=== PATIENT | female | born 1980 | race African-American/Black ===

== ENCOUNTER 2020-05-24 23:00 | Inpatient (IN) | payer OTHER ==
[~2020-05-24] VITALS: Ht 170.2 cm; Wt 61.8 kg
[2020-05-24] MEDS ORDERED: MORPHINE SULFATE 2 MG/ML VIAL. IV PRN (23:30)
[2020-05-24] MEDS ORDERED: ACETAMINOPHEN 325 MG TABLET. PO PRN (23:30)
[2020-05-24] MEDS ORDERED: 0.9 % SODIUM CHLORIDE 10 ML DISP.SYRIN. IV PRN (23:30)
[2020-05-24] MEDS ORDERED: ONDANSETRON PF 4 MG/2 ML VIAL. IV PRN (23:30)
[2020-05-24] MEDS ORDERED: ALPR0.5T PO (23:36)
[2020-05-24] MEDS ORDERED: cloNIDine HCL 0.1 MG TABLET PO PRN (23:45)
[2020-05-24] MEDS: IV NORMAL SALINE 1000ML BAG 1,000 ML IV SCH (23:45)
[2020-05-24] MEDS ORDERED: ALPRAZolam 0.5 MG TABLET PO PRN (23:45)
[2020-05-24] MEDS ORDERED: NALOXONE 0.4 MG/ML VIAL. IV PRN (23:45)
[2020-05-25] VITALS (8 sets, daily range): BP systolic 115–150; BP diastolic 41–86
[2020-05-25] MEDS: NICOTINE 21MG PATCH. TD SCH ×2 (00:35→09:00)
[2020-05-25] MEDS: POTASSIUM CHLORIDE 10MEQ 100 ML IV SCH ×2 (00:35→01:44)
[2020-05-25] MEDS: HYDROmorphone 2 MG/ML VIAL IVP PRN ×2 (00:36→06:12)
--- NOTE | 2020-05-25 00:43 | NUR ---
Pt normally takes 0.5 of Xanax at night and tonight, she broke the pill in half and gave back to this RN. Advised pt that I would have to discard rest and she was fine with it. Will continue to monitor. MPRN
[2020-05-25] MEDS: PIPERACILLIN/TAZOBACTAM 3.375 GM in IV NORMAL SALINE 50ML 50 ML IV SCH ×4 (01:43→18:43)
[2020-05-25 03:23] LABS: BILIRUBIN,URINE NEGATIVE (NEG); CLARITY,URINE CLEAR; COLOR,URINE YELLOW; NITRITE,URINE NEGATIVE (NEG); PROTEIN,URINE NEGATIVE (NEG-TRACE); UROBILINOGEN,URINE 0.2 mg/dL (0.2 mg/dL)
[2020-05-25 03:25] LABS: U PREG PATIENT NEGATIVE (NEG)
[2020-05-25 03:28] LABS: RBC,URINE 0 /HPF (0-2)
[2020-05-25 03:29] LABS: BACTERIA,URINE FEW /HPF (0-FEW); SQUAMOUS EPITHELIAL CELL,UR FEW /LPF; WBC,URINE OCC /HPF (0-4)
[2020-05-25 03:30] LABS: BARBITURATES NEG (NEG); BENZODIAZEPINES NEG (NEG); CANNABINOIDS POS (NEG); COCAINE NEG (NEG); METHADONE NEG (NEG); OPIATES POS (NEG); PHENCYCLIDINE NEG (NEG)
[2020-05-25 03:35] LABS: AMPHETAMINE/METHAMPHETAMINE NEG (NEG)
[2020-05-25] MEDS: KETOROLAC 30 MG/ML VIAL. IVP PRN ×2 (03:36→19:19)
[2020-05-25 04:43] LABS: BASO % 0 % (0-3); EOS # 0.1 x10^3/uL (0.0-0.7); EOS % 2 % (0-3); HEMATOCRIT 23.2 % (36.0-47.0); HEMOGLOBIN 7.5 g/dL (12.0-15.5); LYMPH # 1.5 x10^3/uL (1.0-4.8); LYMPH % 25 % (24-48); MEAN CORPUSCULAR HEMOGLOBIN 27 pg (25-35); MEAN CORPUSCULAR HGB CONC 32 g/dL (31-37); MEAN CORPUSCULAR VOLUME 86 fL (79-100); MONO # 0.5 x10^3/uL (0.0-1.1); MONO % 8 % (0-9); NEUT # 3.7 x10^3/uL (1.8-7.7); NEUT % 65 % (31-73); PLATELET COUNT 373 x10^3/uL (140-400); RED BLOOD COUNT 2.72 x10^6/uL (3.50-5.40); RED CELL DISTRIBUTION WIDTH 20.5 % (11.5-14.5); WHITE BLOOD COUNT 5.8 x10^3/uL (4.0-11.0)
[2020-05-25 05:07] LABS: CALCIUM 7.8 mg/dL (8.5-10.1); CREATININE 0.8 mg/dL (0.6-1.0); GFR 97.7; MAGNESIUM 1.4 mg/dL (1.8-2.4); POTASSIUM 3.1 mmol/L (3.5-5.1); TOTAL BILIRUBIN 0.9 mg/dL (0.2-1.0)
--- NOTE | 2020-05-25 08:10 | PDOC2 ---
CONSULT Date of Consult Date of Consult DATE: 05/25/20 TIME: 08:07 Reason for Consult Reason for Consult: Acute appendicitis Referring Physician Referring Physician: Cooper Identification/Chief Complaint Chief Complaint Right lower quadrant abdominal pain Source Source: Chart review, Patient History of Present Illness Reason for Visit: 39-year-old female whose had right lower quadrant abdominal pain for approximately 18 hours. She denies any nausea vomiting fevers or chills. CT scan done at [place] emergency department shows dilated appendix with periappendiceal inflammation Past Medical History Cardiovascular: No pertinent hx Pulmonary: No pertinent hx GI: Other (Pancreatitis) Heme/Onc: No pertinent hx Hepatobiliary: No pertinent hx Psych: Anxiety Rheumatologic: No pertinent hx Infectious disease: No pertinent hx ENT: No pertinent hx Renal/: No pertinent hx Endocrine: No pertinent hx Dermatology: No pertinent hx Past Surgical History Past Surgical History: (Laparoscopy), Other Family History Family History: No Significant Current Medications Current Medications Current Medications Sodium Chloride (Normal Saline Flush) 3 ml QSHIFT PRN IV AFTER MEDS AND BLOOD DRAWS; Start 05/24/20 at 23:30 Sodium Chloride 1,000 ml @ 100 mls/hr Q10H IV ; Start 05/24/20 at 23:45 Ondansetron HCl (Zofran) 4 mg PRN Q4HRS PRN IV NAUSEA/VOMITING; Start 05/24/20 at 23:30 Acetaminophen (Tylenol) 650 mg PRN Q4HRS PRN PO TEMP OVER 100.4F OR MILD PAIN; Start 05/24/20 at 23:30 Piperacillin Sod/ Tazobactam Sod 3.375 gm/Sodium Chloride 50 ml @ 100 mls/hr Q6HRS IV Last administered on 05/25/20at 06:10; Start 05/25/20 at 00:00 Ketorolac Tromethamine (Toradol 30mg Vial) 30 mg PRN Q6HRS PRN IVP PAIN Last administered on 05/25/20at 03:36; Start 05/24/20 at 23:30; Stop 05/29/20 at 23:29 Morphine Sulfate (Morphine Sulfate) 2 mg PRN Q2HR PRN IV PAIN; Start 05/24/20 at 23:30; Stop 05/24/20 at 23:37; Status DC Potassium Chloride/Water 100 ml @ 100 mls/hr Q1H IV Last administered on 05/25/20at 01:44; Start 05/25/20 at 00:00; Stop 05/25/20 at 01:59; Status DC Multivitamins 10 ml/Thiamine HCl 100 mg/Folic Acid 1 mg/Sodium Chloride 1,011.2 ml @ 100 mls/ hr DAILY IV ; Start 05/25/20 at 09:00; Stop 05/29/20 at 19:07 Lorazepam (Ativan) 1 mg PRN Q1HR PRN PO For CIWA 8-14; Start 05/24/20 at 23:45 Lorazepam (Ativan Inj) 0.5 mg PRN Q1HR PRN IV For CIWA 8-14; Start 05/24/20 at 23:45 Clonidine HCl (Catapres) 0.1 mg PRN Q1HR PRN PO SBP > 180 or DBP > 100, MRX3; Start 05/24/20 at 23:45 Hydromorphone HCl (Dilaudid) 0.4 mg PRN Q4HRS PRN IVP PAIN Last administered on 05/25/20at 06:12; Start 05/24/20 at 23:45 Alprazolam (Xanax) 0.5 mg PRN BID PRN PO ANXIETY / AGITATION Last administered on 05/25/20at 00:36; Start 05/24/20 at 23:45 Naloxone HCl (Narcan) 0.4 mg PRN Q2MIN PRN IV SEE COMMENTS; Start 05/24/20 at 23:45 Nicotine (Nicoderm Cq 21mg) 1 patch DAILY TD Last administered on 05/25/20at 00:35; Start 05/25/20 at 00:00 Active Scripts Active Reported Xanax (Alprazolam) 0.5 Mg Tablet 0.5 Mg PO PRN Q6HRS PRN Allergies Allergies: Coded Allergies: morphine (Verified Allergy, Intermediate, Anaphylaxis, 05/24/20) Body and throat swelling ROS Gastrointestinal: Yes Abdominal Pain Physical Exam General: Alert, Oriented X3, Cooperative, mild distress HEENT: Atraumatic Lungs: Clear to auscultation, Normal air movement Heart: Regular rate, No murmurs Abdomen: Normal bowel sounds, Soft, Other (Tender palpation right lower quadrant) Extremities: No edema Skin: No significant lesion Neuro: Normal speech Psych/Mental Status: Mental status NL Vitals VITALS Vital Signs Date Time Temp Pulse Resp B/P (MAP) Pulse Ox O2 Delivery O2 Flow Rate FiO2 05/25/20 07:00 97.7 72 18 115/67 (83) 99 Room Air 97.7 Labs Labs Laboratory Tests Test 05/25/20 01:09 05/25/20 02:10 05/25/20 03:35 SARS-CoV-2 Antigen (Rapid) Negative (NEGATIVE) Urine Collection Type Unknown Urine Color Yellow Urine Clarity Clear Urine pH 6.0 (<5.0-8.0) Urine Specific Jackman >=1.030 (1.000-1.030) Urine Protein Negative mg/dL (NEG-TRACE) Urine Glucose (UA) Negative mg/dL (NEG) Urine Ketones (Stick) Negative mg/dL (NEG) Urine Blood Negative (NEG) Urine Nitrite Negative (NEG) Urine Bilirubin Negative (NEG) Urine Urobilinogen Dipstick 0.2 mg/dL (0.2 mg/dL) Urine Leukocyte Esterase Negative (NEG) Urine RBC 0 /HPF (0-2) Urine WBC Occ /HPF (0-4) Urine Squamous Epithelial Cells Few /LPF Urine Bacteria Few /HPF (0-FEW) Urine Mucus Slight /LPF Urine Test Negative (NEG) Urine Opiates Screen Pos (NEG) Urine Methadone Screen Neg (NEG) Urine Barbiturates Neg (NEG) Urine Phencyclidine Screen Neg (NEG) Urine Amphetamine/Methamphetamine Neg (NEG) Urine Benzodiazepines Screen Neg (NEG) Urine Cocaine Screen Neg (NEG) Urine Cannabinoids Screen Pos (NEG) Urine Ethyl Alcohol Neg (NEG) White Blood Count 5.8 x10^3/uL (4.0-11.0) Red Blood Count 2.72 x10^6/uL (3.50-5.40) Hemoglobin 7.5 g/dL (12.0-15.5) Hematocrit 23.2 % (36.0-47.0) Mean Corpuscular Volume 86 fL (79-100) Mean Corpuscular Hemoglobin 27 pg (25-35) Mean Corpuscular Hemoglobin Concent 32 g/dL (31-37) Red Cell Distribution Width 20.5 % (11.5-14.5) Platelet Count 373 x10^3/uL (140-400) Neutrophils (%) (Auto) 65 % (31-73) Lymphocytes (%) (Auto) 25 % (24-48) Monocytes (%) (Auto) 8 % (0-9) Eosinophils (%) (Auto) 2 % (0-3) Basophils (%) (Auto) 0 % (0-3) Neutrophils # (Auto) 3.7 x10^3/uL (1.8-7.7) Lymphocytes # (Auto) 1.5 x10^3/uL (1.0-4.8) Monocytes # (Auto) 0.5 x10^3/uL (0.0-1.1) Eosinophils # (Auto) 0.1 x10^3/uL (0.0-0.7) Basophils # (Auto) 0.0 x10^3/uL (0.0-0.2) Sodium Level 138 mmol/L (136-145) Potassium Level 3.1 mmol/L (3.5-5.1) Chloride Level 105 mmol/L (98-107) Carbon Dioxide Level 21 mmol/L (21-32) Anion Gap 12 (6-14) Blood Urea Nitrogen 5 mg/dL (7-20) Creatinine 0.8 mg/dL (0.6-1.0) Estimated GFR (Cockcroft-Gault) 97.7 BUN/Creatinine Ratio 6 (6-20) Glucose Level 86 mg/dL (70-99) Calcium Level 7.8 mg/dL (8.5-10.1) Magnesium Level 1.4 mg/dL (1.8-2.4) Iron Level 15 ug/dL (50-170) Total Iron Binding Capacity 339 ug/dL (250-450) Iron Saturation 4 % (15-34) Total Bilirubin 0.9 mg/dL (0.2-1.0) Aspartate Amino Transf (AST/SGOT) 21 U/L (15-37) Alanine Aminotransferase (ALT/SGPT) 36 U/L (14-59) Alkaline Phosphatase 50 U/L (46-116) Total Protein 6.0 g/dL (6.4-8.2) Albumin 3.0 g/dL (3.4-5.0) Albumin/Globulin Ratio 1.0 (1.0-1.7) Laboratory Tests Test 05/25/20 01:09 05/25/20 02:10 05/25/20 03:35 SARS-CoV-2 Antigen (Rapid) Negative (NEGATIVE) Urine Collection Type Unknown Urine Color Yellow Urine Clarity Clear Urine pH 6.0 (<5.0-8.0) Urine Specific Jackman >=1.030 (1.000-1.030) Urine Protein Negative mg/dL (NEG-TRACE) Urine Glucose (UA) Negative mg/dL (NEG) Urine Ketones (Stick) Negative mg/dL (NEG) Urine Blood Negative (NEG) Urine Nitrite Negative (NEG) Urine Bilirubin Negative (NEG) Urine Urobilinogen Dipstick 0.2 mg/dL (0.2 mg/dL) Urine Leukocyte Esterase Negative (NEG) Urine RBC 0 /HPF (0-2) Urine WBC Occ /HPF (0-4) Urine Squamous Epithelial Cells Few /LPF Urine Bacteria Few /HPF (0-FEW) Urine Mucus Slight /LPF Urine Test Negative (NEG) Urine Opiates Screen Pos (NEG) Urine Methadone Screen Neg (NEG) Urine Barbiturates Neg (NEG) Urine Phencyclidine Screen Neg (NEG) Urine Amphetamine/Methamphetamine Neg (NEG) Urine Benzodiazepines Screen Neg (NEG) Urine Cocaine Screen Neg (NEG) Urine Cannabinoids Screen Pos (NEG) Urine Ethyl Alcohol Neg (NEG) White Blood Count 5.8 x10^3/uL (4.0-11.0) Red Blood Count 2.72 x10^6/uL (3.50-5.40) Hemoglobin 7.5 g/dL (12.0-15.5) Hematocrit 23.2 % (36.0-47.0) Mean Corpuscular Volume 86 fL (79-100) Mean Corpuscular Hemoglobin 27 pg (25-35) Mean Corpuscular Hemoglobin Concent 32 g/dL (31-37) Red Cell Distribution Width 20.5 % (11.5-14.5) Platelet Count 373 x10^3/uL (140-400) Neutrophils (%) (Auto) 65 % (31-73) Lymphocytes (%) (Auto) 25 % (24-48) Monocytes (%) (Auto) 8 % (0-9) Eosinophils (%) (Auto) 2 % (0-3) Basophils (%) (Auto) 0 % (0-3) Neutrophils # (Auto) 3.7 x10^3/uL (1.8-7.7) Lymphocytes # (Auto) 1.5 x10^3/uL (1.0-4.8) Monocytes # (Auto) 0.5 x10^3/uL (0.0-1.1) Eosinophils # (Auto) 0.1 x10^3/uL (0.0-0.7) Basophils # (Auto) 0.0 x10^3/uL (0.0-0.2) Sodium Level 138 mmol/L (136-145) Potassium Level 3.1 mmol/L (3.5-5.1) Chloride Level 105 mmol/L (98-107) Carbon Dioxide Level 21 mmol/L (21-32) Anion Gap 12 (6-14) Blood Urea Nitrogen 5 mg/dL (7-20) Creatinine 0.8 mg/dL (0.6-1.0) Estimated GFR (Cockcroft-Gault) 97.7 BUN/Creatinine Ratio 6 (6-20) Glucose Level 86 mg/dL (70-99) Calcium Level 7.8 mg/dL (8.5-10.1) Magnesium Level 1.4 mg/dL (1.8-2.4) Iron Level 15 ug/dL (50-170) Total Iron Binding Capacity 339 ug/dL (250-450) Iron Saturation 4 % (15-34) Total Bilirubin 0.9 mg/dL (0.2-1.0) Aspartate Amino Transf (AST/SGOT) 21 U/L (15-37) Alanine Aminotransferase (ALT/SGPT) 36 U/L (14-59) Alkaline Phosphatase 50 U/L (46-116) Total Protein 6.0 g/dL (6.4-8.2) Albumin 3.0 g/dL (3.4-5.0) Albumin/Globulin Ratio 1.0 (1.0-1.7) Assessment/Plan Assessment/Plan Acute appendicitis plan laparoscopic appendectomy RICHARDSON MCKEON MD May 25, 2020 08:09
[2020-05-25] MEDS ORDERED: IV RINGERS,LACTATED 1000ML 1,000 ML IV SCH (08:24)
[2020-05-25] MEDS ORDERED: PROCHLORPERAZINE 10 MG/2 ML VIAL. IV PRN (08:30)
[2020-05-25] MEDS ORDERED: LIDOCAINE 1% PF 2 ML VIAL. ID PRN (08:30)
[2020-05-25] MEDS ORDERED: MORPHINE SULFATE 2 MG/ML VIAL. IV PRN (08:30)
[2020-05-25] MEDS ORDERED: HYDROmorphone 2 MG/ML VIAL IV PRN (08:30)
[2020-05-25] MEDS ORDERED: fentaNYL PF VIAL 100 MCG/2 ML VIAL IV PRN (08:30)
[2020-05-25] MEDS: IV NORMAL SALINE 1000ML BAG 1,000 ML IV SCH ×2 (09:45→15:04)
--- NOTE | 2020-05-25 10:23 | NUR ---
SW following. Discussed with RN, pt from home with family. Pt having surgery today. RN advised pt UDS postive for opioids and cannabis. SW awaiting confirmation of whether physician wants PAT referral.
[2020-05-25] MEDS ORDERED: PROPOFOL 10 MG/ML (20ML) VIAL. IV ONE (10:49)
[2020-05-25] MEDS ORDERED: LIDOCAINE 2% PF 5 ML VIAL. ONE (10:49)
[2020-05-25] MEDS ORDERED: MIDAZOLAM HCL/PF 2 MG/2 ML VIAL. ONE (10:49)
[2020-05-25] MEDS ORDERED: DEXAMETHASONE SOD PHOS 4 MG/ML VIAL ONE ×2 (10:49→11:52)
[2020-05-25] MEDS ORDERED: SUCCINYLCHOLINE 200 MG/10 ML VIAL. ONE (10:49)
[2020-05-25] MEDS ORDERED: fentaNYL PF VIAL 100 MCG/2 ML VIAL ONE ×2 (10:49→12:18)
[2020-05-25] MEDS ORDERED: FAMOTIDINE 20 MG/2 ML VIAL ONE (10:49)
[2020-05-25] MEDS ORDERED: ONDANSETRON PF 4 MG/2 ML VIAL. ONE (10:49)
[2020-05-25] MEDS ORDERED: ROCURONIUM 50 MG/5 ML VIAL. ONE (10:49)
[2020-05-25] MEDS ORDERED: KETOROLAC 30 MG/ML VIAL. ONE (10:52)
--- NOTE | 2020-05-25 11:05 | NUR ---
Patient off floor for surgery. Will continue to monitor.
[2020-05-25] MEDS ORDERED: BUPIVACAINE-EPI 0.5%-1:200000 MPF 30 ML VIAL. ONE (11:56)
[2020-05-25] MEDS ORDERED: GLYCOPYRROLATE 1 MG/5 ML VIAL. ONE (12:19)
[2020-05-25] MEDS ORDERED: NEOSTIGMINE METHYLSULFATE 5 MG/5 ML SYRINGE. ONE (12:19)
[2020-05-25] MEDS ORDERED: SEVOFLURANE 61 TO 120 MINUTES. IH ONE (12:29)
--- NOTE | 2020-05-25 12:29 | PDOC4 ---
Operative Note Operative Note Preoperative Diagnosis: Acute Appendicitis Postoperative Diagnosis: Same Procedure: Laparoscopic appendectomy Surgeon: Zaire Tv Host: RAQUEL Wilkerson Anesthesia: Gen. EBL: 10 mL Specimen: Appendix to pathology Drains: None Complications: None Indication: The patient is a 39-year-old female who reported to the emergency department with abdominal pain. The evaluation is consistent with acute appendicitis. The patient was offered surgical treatment with a laparoscopic appendectomy. The risks of surgery were discussed which include bleeding, infection, visceral injury, pain, anesthetic risk, potential need for additional surgery or procedure. The patient understands and would like to proceed. Description: The patient was taken to the operating room and placed supine on the operating table. Gen. anesthesia was performed. The abdomen was prepped with ChloraPrep and draped in a standard surgical manner. A supraumbilical incision was made through which a veress needle was inserted and a pneumoperitoneum was created. A visualized 5 mm trocar was inserted and the laparoscope was introduced. In the left lower quadrant a 5 mm trocar was inserted. In the suprapubic region a 12 mm trocar was inserted. The appendix was identified and appeared inflamed consistent with acute appendicitis. There was no clear victor manuel dence of perforation or periappendiceal abscess. The mesoappendix was bluntly from the appendix. The mesoappendix was controlled using several clips and it was divided. The appendix was then amputated off the cecum using an Endo VIRY 45 stapling device. The appendix was then placed in an endoscopic bag and extracted at the suprapubic incision site. The fascia there was closed with 0 Vicryl and infiltrated with half percent Marcaine with epinephrine. The RLQ was visualized and the staple line appeared well intact and hemostasis was good. No other abnormalities were identified grossly. The remaining ports were removed and the pneumoperitoneum was relieved. The skin at all incision sites was closed with 4-0 Monocryl. Steri-Strips and dressings were applied. The patient tolerated the procedure well and was sent to the recovery room in stable condition. At the end of the case all counts were correct. GUILLE TORREZ MD May 25, 2020 12:29
[2020-05-25] MEDS ORDERED: oxyCODONE/APAP 5/325 1 TAB TABLET PO PRN (12:30)
[2020-05-25] MEDS: fentaNYL PF VIAL 100 MCG/2 ML VIAL IV PRN ×2 (13:12→13:57)
[2020-05-25] MEDS: MULTIVIT INFUSN,ADULT 4,VIT K 10 ML, THIAMINE INJ 100 MG, FOLIC ACID INJ 1 MG in IV NOR... IV SCH (14:10)
--- NOTE | 2020-05-25 14:40 | PDOC1 ---
History and Physical Date of Admission Date of Admission 05/25/2020 Identification/Chief Complaint Chief Complaint My stomach hurts Source Source: Chart review, Patient History of Present Illness History of Present Illness Patient is a 39-year-old female with no significant past medical history who was in her usual state of health until approximately 2 days prior to her admission when she started complaining of abdominal pain which was vague and not very localized. The patient described the discomfort as a sharp sensation 3-5 intensity out of 10. No radiation to the back no urinary symptoms no nausea vomiting diarrhea reported. The patient denies any sick contacts no travels outside this area. The patient denied any fever chills no diaphoresis, she did not have any dietary transgressions prior to the event. The patient unfortunately developed quite severe symptoms approximately a day prior to her admission or visit to the emergency department and the pain got progressively worse to a 10 out of 10 intensity associated with nausea. The patient decided to visit her local emergency department at [place] where she was diagnosed by imaging studies with appendicitis and transferred to our institution for further evaluation and treatment. Patient at the time of my visit is in no apparent distress the patient denies any abdominal discomfort no fever chills no urinary symptoms no other complaints. Laboratory data has been discussed with the patient and inquired about excessive bleeding given her degree of anemia. She also has evidence of iron deficiency on her laboratory data. Reassurance has been provided and the plan of care was explained in detail no concerns were voiced during my encounter Past Medical History Cardiovascular: No pertinent hx Pulmonary: No pertinent hx GI: Other (Pancreatitis) Heme/Onc: No pertinent hx Hepatobiliary: No pertinent hx Psych: Anxiety Rheumatologic: No pertinent hx Infectious disease: No pertinent hx ENT: No pertinent hx Renal/: No pertinent hx Endocrine: No pertinent hx Dermatology: No pertinent hx Past Surgical History Past Surgical History: (Laparoscopy), Other Family History Family History: No Significant Current Medications Current Medications Current Medications Medications (Trade) Dose Ordered Sig/Roger Start Time Stop Time Status Last Admin Dose Admin Acetaminophen (Tylenol) 650 mg PRN Q4HRS PRN 05/24/20 23:30 Alprazolam (Xanax) 0.5 mg PRN BID PRN 05/24/20 23:45 05/25/20 00:36 0.5 MG Bupivacaine HCl/ Epinephrine Bitart (Sensorcain-Epi 0.5%-1:[id number] Mpf) 30 ml STK-MED ONCE 05/25/20 11:56 05/25/20 11:57 DC 05/25/20 12:18 10 ML Clonidine HCl (Catapres) 0.1 mg PRN Q1HR PRN 05/24/20 23:45 Dexamethasone Sodium Phosphate (Decadron) 4 mg STK-MED ONCE 05/25/20 11:52 05/25/20 11:52 DC Famotidine (Pepcid Vial) 20 mg STK-MED ONCE 05/25/20 10:49 05/25/20 10:50 DC Fentanyl Citrate (Fentanyl 2ml Vial) 100 mcg STK-MED ONCE 05/25/20 12:18 05/25/20 12:18 DC Glycopyrrolate (Robinul) 1 mg STK-MED ONCE 05/25/20 12:19 05/25/20 12:19 DC Hydromorphone HCl (Dilaudid) 0.5 mg PRN Q10MIN PRN 05/25/20 08:30 05/25/20 20:00 Ketorolac Tromethamine (Toradol 30mg Vial) 30 mg STK-MED ONCE 05/25/20 10:52 05/25/20 10:53 DC Lidocaine HCl (Lidocaine Pf 2% Vial) 5 ml STK-MED ONCE 05/25/20 10:49 05/25/20 10:49 DC Lidocaine HCl (Xylocaine-Mpf 1% 2ml Vial) 2 ml PRN 1X PRN 05/25/20 08:30 05/25/20 20:00 Lorazepam (Ativan Inj) 0.5 mg PRN Q1HR PRN 05/24/20 23:45 05/25/20 09:27 0.5 MG Lorazepam (Ativan) 1 mg PRN Q1HR PRN 05/24/20 23:45 Midazolam HCl (Versed) 2 mg STK-MED ONCE 05/25/20 10:49 05/25/20 10:49 DC Morphine Sulfate (Morphine Sulfate) 1 mg PRN Q10MIN PRN 05/25/20 08:30 05/25/20 20:00 Multivitamins 10 ml/Thiamine HCl 100 mg/Folic Acid 1 mg/Sodium Chloride 1,011.2 ml @ 100 mls/ hr DAILY 05/25/20 09:00 05/29/20 19:07 Naloxone HCl (Narcan) 0.4 mg PRN Q2MIN PRN 05/24/20 23:45 Neostigmine [place] (Neostigmine Methylsulfate) 5 mg STK-MED ONCE 05/25/20 12:19 05/25/20 12:19 DC Nicotine (Nicoderm Cq 21mg) 1 patch DAILY 05/25/20 00:00 05/25/20 00:35 1 PATCH Ondansetron HCl (Zofran) 4 mg STK-MED ONCE 05/25/20 10:49 05/25/20 10:49 DC Oxycodone/ Acetaminophen (Percocet 5/325) 2 tab PRN Q4HRS PRN 05/25/20 12:45 Piperacillin Sod/ Tazobactam Sod 3.375 gm/Sodium Chloride 50 ml @ 100 mls/hr Q6HRS 05/25/20 00:00 05/25/20 11:53 100 MLS/HR Potassium Chloride/Water 100 ml @ 100 mls/hr Q1H 05/25/20 00:00 05/25/20 01:59 DC 05/25/20 01:44 100 MLS/HR Prochlorperazine Edisylate (Compazine) 5 mg PACU PRN PRN 05/25/20 08:30 05/25/20 20:00 Propofol (Diprivan) 200 mg STK-MED ONCE 05/25/20 10:49 05/25/20 10:49 DC Ringer's Solution 1,000 ml @ 30 mls/hr Q24H 05/25/20 08:24 05/25/20 20:23 05/25/20 11:27 30 MLS/HR Rocuronium [place] (Zemuron) 50 mg STK-MED ONCE 05/25/20 10:49 05/25/20 10:50 DC Sevoflurane (Ultane) 60 ml STK-MED ONCE 05/25/20 12:29 05/25/20 12:30 DC Sodium Chloride 1,000 ml @ 100 mls/hr Q10H 05/24/20 23:45 Sodium Chloride (Normal Saline Flush) 3 ml QSHIFT PRN 05/24/20 23:30 Succinylcholine Chloride (Anectine) 200 mg STK-MED ONCE 05/25/20 10:49 05/25/20 10:50 DC Allergies Allergies Allergies Coded Allergies Type Severity Reaction Last Updated Verified morphine Allergy Intermediate Anaphylaxis 05/24/20 Yes ROS Review of System CONSTITUTIONAL: No fever or chills EYES: No recent changes SKIN: No rash or itching CARDIOVASCULAR: No chest pain, syncope, palpitations, or edema RESPIRATORY: No SOB or cough GASTROINTESTINAL: No nausea, vomiting or abdominal pain NEUROLOGICAL: No headaches or weakness ENDOCRINE: No cold or heat intolerance GENITOURINARY: No urgency or frequency of urination MUSCULOSKELETAL: No back pain or joint pain LYMPHATICS: No enlarged lymph nodes PSYCHIATRIC: No anxiety or depression Physical Exam Physical Exam GEN.: No apparent distress. Alert and oriented. HEENT: Head is normocephalic, atraumatic NECK: Supple. LUNGS: Clear to auscultation. HEART: RRR, S1, S2 present. Peripheral pulses intact ABDOMEN: Soft, nontender. Positive bowel sounds. EXTREMITIES: Without any cyanosis. NEUROLOGIC: Normal speech, normal tone PSYCHIATRIC: Normal affect, normal mood. SKIN: No ulcerations Vitals Vitals Vital Signs Date Time Temp Pulse Resp B/P (MAP) Pulse Ox O2 Delivery O2 Flow Rate FiO2 05/25/20 13:57 16 98 Room Air 05/25/20 13:30 67 115/70 05/25/20 13:16 8 05/25/20 12:44 97.2 97.2 Labs Labs Laboratory Tests Test 05/25/20 01:09 05/25/20 02:10 05/25/20 03:35 SARS-CoV-2 Antigen (Rapid) Negative (NEGATIVE) Urine Collection Type Unknown Urine Color Yellow Urine Clarity Clear Urine pH 6.0 (<5.0-8.0) Urine Specific [place] >=1.030 (1.000-1.030) Urine Protein Negative mg/dL (NEG-TRACE) Urine Glucose (UA) Negative mg/dL (NEG) Urine Ketones (Stick) Negative mg/dL (NEG) Urine Blood Negative (NEG) Urine Nitrite Negative (NEG) Urine Bilirubin Negative (NEG) Urine Urobilinogen Dipstick 0.2 mg/dL (0.2 mg/dL) Urine Leukocyte Esterase Negative (NEG) Urine RBC 0 /HPF (0-2) Urine WBC Occ /HPF (0-4) Urine Squamous Epithelial Cells Few /LPF Urine Bacteria Few /HPF (0-FEW) Urine Mucus Slight /LPF Urine Test Negative (NEG) Urine Opiates Screen Pos (NEG) Urine Methadone Screen Neg (NEG) Urine Barbiturates Neg (NEG) Urine Phencyclidine Screen Neg (NEG) Urine Amphetamine/Methamphetamine Neg (NEG) Urine Benzodiazepines Screen Neg (NEG) Urine Cocaine Screen Neg (NEG) Urine Cannabinoids Screen Pos (NEG) Urine Ethyl Alcohol Neg (NEG) White Blood Count 5.8 x10^3/uL (4.0-11.0) Red Blood Count 2.72 x10^6/uL (3.50-5.40) Hemoglobin 7.5 g/dL (12.0-15.5) Hematocrit 23.2 % (36.0-47.0) Mean Corpuscular Volume 86 fL (79-100) Mean Corpuscular Hemoglobin 27 pg (25-35) Mean Corpuscular Hemoglobin Concent 32 g/dL (31-37) Red Cell Distribution Width 20.5 % (11.5-14.5) Platelet Count 373 x10^3/uL (140-400) Neutrophils (%) (Auto) 65 % (31-73) Lymphocytes (%) (Auto) 25 % (24-48) Monocytes (%) (Auto) 8 % (0-9) Eosinophils (%) (Auto) 2 % (0-3) Basophils (%) (Auto) 0 % (0-3) Neutrophils # (Auto) 3.7 x10^3/uL (1.8-7.7) Lymphocytes # (Auto) 1.5 x10^3/uL (1.0-4.8) Monocytes # (Auto) 0.5 x10^3/uL (0.0-1.1) Eosinophils # (Auto) 0.1 x10^3/uL (0.0-0.7) Basophils # (Auto) 0.0 x10^3/uL (0.0-0.2) Sodium Level 138 mmol/L (136-145) Potassium Level 3.1 mmol/L (3.5-5.1) Chloride Level 105 mmol/L (98-107) Carbon Dioxide Level 21 mmol/L (21-32) Anion Gap 12 (6-14) Blood Urea Nitrogen 5 mg/dL (7-20) Creatinine 0.8 mg/dL (0.6-1.0) Estimated GFR (Cockcroft-Gault) 97.7 BUN/Creatinine Ratio 6 (6-20) Glucose Level 86 mg/dL (70-99) Calcium Level 7.8 mg/dL (8.5-10.1) Magnesium Level 1.4 mg/dL (1.8-2.4) Iron Level 15 ug/dL (50-170) Total Iron Binding Capacity 339 ug/dL (250-450) Iron Saturation 4 % (15-34) Total Bilirubin 0.9 mg/dL (0.2-1.0) Aspartate Amino Transf (AST/SGOT) 21 U/L (15-37) Alanine Aminotransferase (ALT/SGPT) 36 U/L (14-59) Alkaline Phosphatase 50 U/L (46-116) Total Protein 6.0 g/dL (6.4-8.2) Albumin 3.0 g/dL (3.4-5.0) Albumin/Globulin Ratio 1.0 (1.0-1.7) Vitamin B12 Level 367 pg/mL (247-911) Laboratory Tests Test 05/25/20 01:09 05/25/20 02:10 05/25/20 03:35 SARS-CoV-2 Antigen (Rapid) Negative (NEGATIVE) Urine Collection Type Unknown Urine Color Yellow Urine Clarity Clear Urine pH 6.0 (<5.0-8.0) Urine Specific [place] >=1.030 (1.000-1.030) Urine Protein Negative mg/dL (NEG-TRACE) Urine Glucose (UA) Negative mg/dL (NEG) Urine Ketones (Stick) Negative mg/dL (NEG) Urine Blood Negative (NEG) Urine Nitrite Negative (NEG) Urine Bilirubin Negative (NEG) Urine Urobilinogen Dipstick 0.2 mg/dL (0.2 mg/dL) Urine Leukocyte Esterase Negative (NEG) Urine RBC 0 /HPF (0-2) Urine WBC Occ /HPF (0-4) Urine Squamous Epithelial Cells Few /LPF Urine Bacteria Few /HPF (0-FEW) Urine Mucus Slight /LPF Urine Test Negative (NEG) Urine Opiates Screen Pos (NEG) Urine Methadone Screen Neg (NEG) Urine Barbiturates Neg (NEG) Urine Phencyclidine Screen Neg (NEG) Urine Amphetamine/Methamphetamine Neg (NEG) Urine Benzodiazepines Screen Neg (NEG) Urine Cocaine Screen Neg (NEG) Urine Cannabinoids Screen Pos (NEG) Urine Ethyl Alcohol Neg (NEG) White Blood Count 5.8 x10^3/uL (4.0-11.0) Red Blood Count 2.72 x10^6/uL (3.50-5.40) Hemoglobin 7.5 g/dL (12.0-15.5) Hematocrit 23.2 % (36.0-47.0) Mean Corpuscular Volume 86 fL (79-100) Mean Corpuscular Hemoglobin 27 pg (25-35) Mean Corpuscular Hemoglobin Concent 32 g/dL (31-37) Red Cell Distribution Width 20.5 % (11.5-14.5) Platelet Count 373 x10^3/uL (140-400) Neutrophils (%) (Auto) 65 % (31-73) Lymphocytes (%) (Auto) 25 % (24-48) Monocytes (%) (Auto) 8 % (0-9) Eosinophils (%) (Auto) 2 % (0-3) Basophils (%) (Auto) 0 % (0-3) Neutrophils # (Auto) 3.7 x10^3/uL (1.8-7.7) Lymphocytes # (Auto) 1.5 x10^3/uL (1.0-4.8) Monocytes # (Auto) 0.5 x10^3/uL (0.0-1.1) Eosinophils # (Auto) 0.1 x10^3/uL (0.0-0.7) Basophils # (Auto) 0.0 x10^3/uL (0.0-0.2) Sodium Level 138 mmol/L (136-145) Potassium Level 3.1 mmol/L (3.5-5.1) Chloride Level 105 mmol/L (98-107) Carbon Dioxide Level 21 mmol/L (21-32) Anion Gap 12 (6-14) Blood Urea Nitrogen 5 mg/dL (7-20) Creatinine 0.8 mg/dL (0.6-1.0) Estimated GFR (Cockcroft-Gault) 97.7 BUN/Creatinine Ratio 6 (6-20) Glucose Level 86 mg/dL (70-99) Calcium Level 7.8 mg/dL (8.5-10.1) Magnesium Level 1.4 mg/dL (1.8-2.4) Iron Level 15 ug/dL (50-170) Total Iron Binding Capacity 339 ug/dL (250-450) Iron Saturation 4 % (15-34) Total Bilirubin 0.9 mg/dL (0.2-1.0) Aspartate Amino Transf (AST/SGOT) 21 U/L (15-37) Alanine Aminotransferase (ALT/SGPT) 36 U/L (14-59) Alkaline Phosphatase 50 U/L (46-116) Total Protein 6.0 g/dL (6.4-8.2) Albumin 3.0 g/dL (3.4-5.0) Albumin/Globulin Ratio 1.0 (1.0-1.7) Vitamin B12 Level 367 pg/mL (247-911) VTE Prophylaxis Ordered VTE Prophylaxis Devices: No VTE Pharmacological Prophylaxi: Yes Assessment/Plan Assessment/Plan Acute appendicitis Iron deficiency anemia Etiology undetermined determined at the present time for the anemia since there is no history of excessive bleeding Marijuana use Plan Admit patient for surgical evaluation Patient scheduled for OR later in the day Pain management Incentive spirometry Further recommendations based on the clinical course Reassess in the a.m. SCD and teds for DVT prophylaxis Justicifation of Admission Dx: Justifications for Admission: Justification of Admission Dx: Yes Comments: Acute appendicitis MARIBEL LUND MD May 25, 2020 14:40
--- NOTE | 2020-05-25 16:30 | NUR ---
Patient stated she has to go smoke. Patient stated she knows " where to go to not be seen." Patient re educated on non smoking policy. Patient stated she would just go home. Patient educated on need to stay in the hospital after surgery. Patient stated " Ill see if my cousin can pick me." Awaiting to hear from patient. notified.
--- NOTE | 2020-05-25 17:07 | NUR ---
Patient refusing frequent vitals per unit protocol. Will continue to monitor.
[2020-05-25] MEDS: oxyCODONE/APAP 5/325 1 TAB TABLET PO PRN (22:59)
[2020-05-26] MEDS: PIPERACILLIN/TAZOBACTAM 3.375 GM in IV NORMAL SALINE 50ML 50 ML IV SCH ×3 (00:20→12:42)
[2020-05-26 03:00] VITALS: BP 124/59
[2020-05-26] MEDS: IV NORMAL SALINE 1000ML BAG 1,000 ML IV SCH (03:02)
[2020-05-26 07:00] VITALS: BP 137/76
--- NOTE | 2020-05-26 08:45 | PDOC ---
PROGRESS NOTES Subjective Subjective sore, but looks well Objective Objective Vital Signs Date Time Temp Pulse Resp B/P (MAP) Pulse Ox O2 Delivery O2 Flow Rate FiO2 05/26/20 03:00 98.7 55 18 124/59 (80) 95 Room Air 98.7 05/25/20 13:16 8 Intake and Output 05/26/20 07:00 Intake Total 3780 ml Output Total 60 ml Balance 3720 ml Intake Oral 580 ml IV Total 2000 ml Other 1200 ml Output Urine Total 50 ml Estimated Blood Loss 10 ml # Voids 4 Physical Exam Abdomen: Soft Assessment Assessment appendicitis, POD 1 Plan Plan of Care OK to discharge from our standpoint, FU with Dr Torrez in 2 weeks, call for appt [phone] Comment Review of Relevant I have reviewed the following items matty (where applicable) has been applied. Labs Laboratory Tests Test 05/25/20 01:09 05/25/20 02:10 05/25/20 03:35 SARS-CoV-2 Antigen (Rapid) Negative (NEGATIVE) Urine Collection Type Unknown Urine Color Yellow Urine Clarity Clear Urine pH 6.0 (<5.0-8.0) Urine Specific [place] >=1.030 (1.000-1.030) Urine Protein Negative mg/dL (NEG-TRACE) Urine Glucose (UA) Negative mg/dL (NEG) Urine Ketones (Stick) Negative mg/dL (NEG) Urine Blood Negative (NEG) Urine Nitrite Negative (NEG) Urine Bilirubin Negative (NEG) Urine Urobilinogen Dipstick 0.2 mg/dL (0.2 mg/dL) Urine Leukocyte Esterase Negative (NEG) Urine RBC 0 /HPF (0-2) Urine WBC Occ /HPF (0-4) Urine Squamous Epithelial Cells Few /LPF Urine Bacteria Few /HPF (0-FEW) Urine Mucus Slight /LPF Urine Test Negative (NEG) Urine Opiates Screen Pos (NEG) Urine Methadone Screen Neg (NEG) Urine Barbiturates Neg (NEG) Urine Phencyclidine Screen Neg (NEG) Urine Amphetamine/Methamphetamine Neg (NEG) Urine Benzodiazepines Screen Neg (NEG) Urine Cocaine Screen Neg (NEG) Urine Cannabinoids Screen Pos (NEG) Urine Ethyl Alcohol Neg (NEG) White Blood Count 5.8 x10^3/uL (4.0-11.0) Red Blood Count 2.72 x10^6/uL (3.50-5.40) Hemoglobin 7.5 g/dL (12.0-15.5) Hematocrit 23.2 % (36.0-47.0) Mean Corpuscular Volume 86 fL (79-100) Mean Corpuscular Hemoglobin 27 pg (25-35) Mean Corpuscular Hemoglobin Concent 32 g/dL (31-37) Red Cell Distribution Width 20.5 % (11.5-14.5) Platelet Count 373 x10^3/uL (140-400) Neutrophils (%) (Auto) 65 % (31-73) Lymphocytes (%) (Auto) 25 % (24-48) Monocytes (%) (Auto) 8 % (0-9) Eosinophils (%) (Auto) 2 % (0-3) Basophils (%) (Auto) 0 % (0-3) Neutrophils # (Auto) 3.7 x10^3/uL (1.8-7.7) Lymphocytes # (Auto) 1.5 x10^3/uL (1.0-4.8) Monocytes # (Auto) 0.5 x10^3/uL (0.0-1.1) Eosinophils # (Auto) 0.1 x10^3/uL (0.0-0.7) Basophils # (Auto) 0.0 x10^3/uL (0.0-0.2) Sodium Level 138 mmol/L (136-145) Potassium Level 3.1 mmol/L (3.5-5.1) Chloride Level 105 mmol/L (98-107) Carbon Dioxide Level 21 mmol/L (21-32) Anion Gap 12 (6-14) Blood Urea Nitrogen 5 mg/dL (7-20) Creatinine 0.8 mg/dL (0.6-1.0) Estimated GFR (Cockcroft-Gault) 97.7 BUN/Creatinine Ratio 6 (6-20) Glucose Level 86 mg/dL (70-99) Calcium Level 7.8 mg/dL (8.5-10.1) Magnesium Level 1.4 mg/dL (1.8-2.4) Iron Level 15 ug/dL (50-170) Total Iron Binding Capacity 339 ug/dL (250-450) Iron Saturation 4 % (15-34) Total Bilirubin 0.9 mg/dL (0.2-1.0) Aspartate Amino Transf (AST/SGOT) 21 U/L (15-37) Alanine Aminotransferase (ALT/SGPT) 36 U/L (14-59) Alkaline Phosphatase 50 U/L (46-116) Total Protein 6.0 g/dL (6.4-8.2) Albumin 3.0 g/dL (3.4-5.0) Albumin/Globulin Ratio 1.0 (1.0-1.7) Vitamin B12 Level 367 pg/mL (247-911) Medications Current Medications Sodium Chloride (Normal Saline Flush) 3 ml QSHIFT PRN IV AFTER MEDS AND BLOOD DRAWS; Start 05/24/20 at 23:30 Sodium Chloride 1,000 ml @ 100 mls/hr Q10H IV Last administered on 05/26/20at 03:02; Start 05/24/20 at 23:45 Ondansetron HCl (Zofran) 4 mg PRN Q4HRS PRN IV NAUSEA/VOMITING; Start 05/24/20 at 23:30 Acetaminophen (Tylenol) 650 mg PRN Q4HRS PRN PO TEMP OVER 100.4F OR MILD PAIN; Start 05/24/20 at 23:30 Piperacillin Sod/ Tazobactam Sod 3.375 gm/Sodium Chloride 50 ml @ 100 mls/hr Q6HRS IV Last administered on 05/26/20at 06:00; Start 05/25/20 at 00:00 Ketorolac Tromethamine (Toradol 30mg Vial) 30 mg PRN Q6HRS PRN IVP MILD - MODERATE PAIN Last administered on 05/25/20at 19:19; Start 05/24/20 at 23:30; Stop 05/29/20 at 23:29 Morphine Sulfate (Morphine Sulfate) 2 mg PRN Q2HR PRN IV PAIN; Start 05/24/20 at 23:30; Stop 05/24/20 at 23:37; Status DC Potassium Chloride/Water 100 ml @ 100 mls/hr Q1H IV Last administered on 05/25/20at 01:44; Start 05/25/20 at 00:00; Stop 05/25/20 at 01:59; Status DC Multivitamins 10 ml/Thiamine HCl 100 mg/Folic Acid 1 mg/Sodium Chloride 1,011.2 ml @ 100 mls/ hr DAILY IV Last administered on 05/25/20at 14:10; Start 05/25/20 at 09:00; Stop 05/29/20 at 19:07 Lorazepam (Ativan) 1 mg PRN Q1HR PRN PO For CIWA 8-14 Last administered on 05/26/20at 03:00; Start 05/24/20 at 23:45 Lorazepam (Ativan Inj) 0.5 mg PRN Q1HR PRN IV For CIWA 8-14 Last administered on 05/25/20at 20:13; Start 05/24/20 at 23:45 Clonidine HCl (Catapres) 0.1 mg PRN Q1HR PRN PO SBP > 180 or DBP > 100, MRX3; Start 05/24/20 at 23:45 Hydromorphone HCl (Dilaudid) 0.4 mg PRN Q4HRS PRN IVP SEVERE PAIN Last administered on 05/25/20at 06:12; Start 05/24/20 at 23:45 Alprazolam (Xanax) 0.5 mg PRN BID PRN PO ANXIETY / AGITATION Last administered on 05/25/20at 00:36; Start 05/24/20 at 23:45 Naloxone HCl (Narcan) 0.4 mg PRN Q2MIN PRN IV SEE COMMENTS; Start 05/24/20 at 23:45 Nicotine (Nicoderm Cq 21mg) 1 patch DAILY TD Last administered on 05/25/20at 00:35; Start 05/25/20 at 00:00 Fentanyl Citrate (Fentanyl 2ml Vial) 25 mcg PRN Q5MIN PRN IV MILD PAIN 1-3; Start 05/25/20 at 08:30; Stop 05/25/20 at 20:00; Status DC Fentanyl Citrate (Fentanyl 2ml Vial) 50 mcg PRN Q5MIN PRN IV MODERATE TO SEVERE PAIN Last administered on 05/25/20at 13:57; Start 05/25/20 at 08:30; Stop 05/25/20 at 20:00; Status DC Morphine Sulfate (Morphine Sulfate) 1 mg PRN Q10MIN PRN IV SEVERE PAIN 7-10; Start 05/25/20 at 08:30; Stop 05/25/20 at 20:00; Status DC Ringer's Solution 1,000 ml @ 30 mls/hr Q24H IV Last administered on 7/27/20at 11:27; Start 05/25/20 at 08:24; Stop 05/25/20 at 20:23; Status DC Lidocaine HCl (Xylocaine-Mpf 1% 2ml Vial) 2 ml PRN 1X PRN ID PRIOR TO IV START; Start 05/25/20 at 08:30; Stop 05/25/20 at 20:00; Status DC Hydromorphone HCl (Dilaudid) 0.5 mg PRN Q10MIN PRN IV SEV PAIN, Second choice Last administered on 05/25/20at 15:53; Start 05/25/20 at 08:30; Stop 05/25/20 at 20:00; Status DC Prochlorperazine Edisylate (Compazine) 5 mg PACU PRN PRN IV NAUSEA, MRX1; Start 05/25/20 at 08:30; Stop 05/25/20 at 20:00; Status DC Ondansetron HCl (Zofran) 4 mg STK-MED ONCE .ROUTE ; Start 05/25/20 at 10:49; Stop 05/25/20 at 10:49; Status DC Propofol (Diprivan) 200 mg STK-MED ONCE IV ; Start 05/25/20 at 10:49; Stop 05/25/20 at 10:49; Status DC Lidocaine HCl (Lidocaine Pf 2% Vial) 5 ml STK-MED ONCE .ROUTE ; Start 05/25/20 at 10:49; Stop 05/25/20 at 10:49; Status DC Dexamethasone Sodium Phosphate (Decadron) 4 mg STK-MED ONCE .ROUTE ; Start 05/25/20 at 10:49; Stop 05/25/20 at 10:49; Status DC Midazolam HCl (Versed) 2 mg STK-MED ONCE .ROUTE ; Start 05/25/20 at 10:49; Stop 05/25/20 at 10:49; Status DC Fentanyl Citrate (Fentanyl 2ml Vial) 100 mcg STK-MED ONCE .ROUTE ; Start 05/25/20 at 10:49; Stop 05/25/20 at 10:49; Status DC Succinylcholine Chloride (Anectine) 200 mg STK-MED ONCE .ROUTE ; Start 05/25/20 at 10:49; Stop 05/25/20 at 10:50; Status DC Rocuronium [place] (Zemuron) 50 mg STK-MED ONCE .ROUTE ; Start 05/25/20 at 10:49; Stop 05/25/20 at 10:50; Status DC Famotidine (Pepcid Vial) 20 mg STK-MED ONCE .ROUTE ; Start 05/25/20 at 10:49; Stop 05/25/20 at 10:50; Status DC Ketorolac Tromethamine (Toradol 30mg Vial) 30 mg STK-MED ONCE .ROUTE ; Start 05/25/20 at 10:52; Stop 05/25/20 at 10:53; Status DC Dexamethasone Sodium Phosphate (Decadron) 4 mg STK-MED ONCE .ROUTE ; Start 05/25/20 at 11:52; Stop 05/25/20 at 11:52; Status DC Bupivacaine HCl/ Epinephrine Bitart (Sensorcain-Epi 0.5%-1:199401 Mpf) 30 ml STK-MED ONCE .ROUTE Last administered on 05/25/20at 12:18; Start 05/25/20 at 11:56; Stop 05/25/20 at 11:57; Status DC Fentanyl Citrate (Fentanyl 2ml Vial) 100 mcg STK-MED ONCE .ROUTE ; Start 05/25/20 at 12:18; Stop 05/25/20 at 12:18; Status DC Glycopyrrolate (Robinul) 1 mg STK-MED ONCE .ROUTE ; Start 05/25/20 at 12:19; Stop 05/25/20 at 12:19; Status DC Neostigmine [place] (Neostigmine Methylsulfate) 5 mg STK-MED ONCE .ROUTE ; Start 05/25/20 at 12:19; Stop 05/25/20 at 12:19; Status DC Sevoflurane (Ultane) 60 ml STK-MED ONCE IH ; Start 05/25/20 at 12:29; Stop 05/25/20 at 12:30; Status DC Oxycodone/ Acetaminophen (Percocet 5/325) 1 tab PRN Q4HRS PRN PO MODERATE PAIN; Start 05/25/20 at 12:30 Oxycodone/ Acetaminophen (Percocet 5/325) 2 tab PRN Q4HRS PRN PO SEVERE PAIN Last administered on 05/25/20at 22:59; Start 05/25/20 at 12:45 Active Scripts Active Reported Xanax (Alprazolam) 0.5 Mg Tablet 0.5 Mg PO PRN Q6HRS PRN Vitals/I & O Vital Sign - Last 24 Hours 05/25/20 05/25/20 05/25/20 05/25/20 11:00 11:17 12:44 12:44 Temp 97.9 97.9 97.2 97.9 97.9 97.2 Pulse 67 57 82 Resp 19 18 20 B/P (MAP) 120/80 (93) 149/87 151/80 Pulse Ox 100 99 100 O2 Delivery Room Air Room Air Mask Simple Mask O2 Flow Rate 8 8 05/25/20 05/25/20 05/25/20 05/25/20 13:00 13:12 13:16 13:30 Pulse 61 64 67 Resp 12 14 12 14 B/P (MAP) 141/87 122/71 115/70 Pulse Ox 100 100 100 97 O2 Delivery Simple Mask Simple Mask Simple Mask Room Air O2 Flow Rate 8 8.0 8 05/25/20 05/25/20 05/25/20 05/25/20 13:57 14:45 15:00 15:15 Pulse 60 62 62 Resp 16 19 B/P (MAP) 116/82 (93) 137/86 (103) 137/86 (103) Pulse Ox 98 98 100 100 O2 Delivery Room Air Room Air Room Air Room Air 05/25/20 05/25/20 05/25/20 05/25/20 15:53 16:23 19:00 20:00 Temp 97.7 97.7 Pulse 72 Resp 18 B/P (MAP) 134/86 (102) Pulse Ox 99 O2 Delivery Room Air Room Air Room Air Room Air 05/25/20 05/25/20 05/25/20 05/26/20 22:59 23:00 23:59 03:00 Temp 98.5 98.7 98.5 98.7 Pulse 61 55 Resp 20 18 20 18 B/P (MAP) 150/86 (107) 124/59 (80) Pulse Ox 94 95 O2 Delivery Room Air Room Air Room Air Room Air Intake and Output 05/25/20 05/25/20 05/26/20 15:00 23:00 07:00 Intake Total 800 ml 100 ml 2880 ml Output Total 60 ml Balance 740 ml 100 ml 2880 ml Justicifation of Admission Dx: Justifications for Admission: Justification of Admission Dx: Yes GUILLE TORREZ MD May 26, 2020 08:44
[2020-05-26 08:49] LABS: BASO % 1 % (0-3); EOS % 0 % (0-3); HEMATOCRIT 26.5 % (36.0-47.0); HEMOGLOBIN 8.4 g/dL (12.0-15.5); LYMPH # 0.5 x10^3/uL (1.0-4.8); LYMPH % 9 % (24-48); MEAN CORPUSCULAR HEMOGLOBIN 27 pg (25-35); MEAN CORPUSCULAR HGB CONC 32 g/dL (31-37); MEAN CORPUSCULAR VOLUME 86 fL (79-100); MONO # 0.4 x10^3/uL (0.0-1.1); MONO % 6 % (0-9); NEUT # 5.3 x10^3/uL (1.8-7.7); NEUT % 85 % (31-73); PLATELET COUNT 402 x10^3/uL (140-400); WHITE BLOOD COUNT 6.2 x10^3/uL (4.0-11.0)
[2020-05-26 09:10] LABS: CALCIUM 8.9 mg/dL (8.5-10.1); CREATININE 1.1 mg/dL (0.6-1.0); GFR 67.6; POTASSIUM 3.6 mmol/L (3.5-5.1)
[2020-05-26] MEDS: oxyCODONE/APAP 5/325 1 TAB TABLET PO PRN ×2 (09:47→15:08)
[2020-05-26] MEDS: MULTIVIT INFUSN,ADULT 4,VIT K 10 ML, THIAMINE INJ 100 MG, FOLIC ACID INJ 1 MG in IV NOR... IV SCH (09:49)
[2020-05-26] MEDS: NICOTINE 21MG PATCH. TD SCH (09:50)
[2020-05-26 11:00] VITALS: BP 146/84
--- NOTE | 2020-05-26 11:13 | PDOC ---
PROGRESS NOTES Chief Complaint Chief Complaint Assessment/Plan Acute appendicitis Iron deficiency anemia h and h stable post op Etiology undetermined determined at the present time for the anemia since there is no history of excessive bleeding Marijuana use Plan continue supportive measures follow recommendations from datapower consultant. Pain management Incentive spirometry Further recommendations based on the clinical course Disposition: home when of with datapower consultant. SCD and teds for DVT prophylaxis Operative Note Preoperative Diagnosis: Acute Appendicitis Postoperative Diagnosis: Same Procedure: Laparoscopic appendectomy Surgeon: [place] Director Internal Control: RAQUEL Wilkerson Anesthesia: Gen. EBL: 10 mL Specimen: Appendix to pathology Drains: None Complications: None History of Present Illness History of Present Illness Ambulate in the halls. Complaining of not being able to call her mother otherwise seems in no pain no discomfort no nausea vomiting no chills or fever reported overnight. Awaiting for surgical evaluation postop Vitals Vitals Vital Signs Date Time Temp Pulse Resp B/P (MAP) Pulse Ox O2 Delivery O2 Flow Rate FiO2 05/26/20 09:47 19 05/26/20 08:00 Room Air 05/26/20 07:00 98.7 68 137/76 (96) 99 98.7 05/25/20 13:16 8 Physical Exam General: Alert, Oriented X3, Cooperative, mild distress Heart: Regular rate, Normal S1, Normal S2, No murmurs Lungs: Clear Abdomen: Normal bowel sounds, Soft Extremities: No edema Skin: No significant lesion Labs LABS Laboratory Tests Test 05/26/20 08:37 White Blood Count 6.2 x10^3/uL (4.0-11.0) Red Blood Count 3.10 x10^6/uL (3.50-5.40) Hemoglobin 8.4 g/dL (12.0-15.5) Hematocrit 26.5 % (36.0-47.0) Mean Corpuscular Volume 86 fL (79-100) Mean Corpuscular Hemoglobin 27 pg (25-35) Mean Corpuscular Hemoglobin Concent 32 g/dL (31-37) Red Cell Distribution Width 20.0 % (11.5-14.5) Platelet Count 402 x10^3/uL (140-400) Neutrophils (%) (Auto) 85 % (31-73) Lymphocytes (%) (Auto) 9 % (24-48) Monocytes (%) (Auto) 6 % (0-9) Eosinophils (%) (Auto) 0 % (0-3) Basophils (%) (Auto) 1 % (0-3) Neutrophils # (Auto) 5.3 x10^3/uL (1.8-7.7) Lymphocytes # (Auto) 0.5 x10^3/uL (1.0-4.8) Monocytes # (Auto) 0.4 x10^3/uL (0.0-1.1) Eosinophils # (Auto) 0.0 x10^3/uL (0.0-0.7) Basophils # (Auto) 0.0 x10^3/uL (0.0-0.2) Sodium Level 136 mmol/L (136-145) Potassium Level 3.6 mmol/L (3.5-5.1) Chloride Level 103 mmol/L (98-107) Carbon Dioxide Level 21 mmol/L (21-32) Anion Gap 12 (6-14) Blood Urea Nitrogen 3 mg/dL (7-20) Creatinine 1.1 mg/dL (0.6-1.0) Estimated GFR (Cockcroft-Gault) 67.6 Glucose Level 165 mg/dL (70-99) Calcium Level 8.9 mg/dL (8.5-10.1) Comment Review of Relevant I have reviewed the following items matty (where applicable) has been applied. Labs Laboratory Tests Test 05/25/20 01:09 05/25/20 02:10 05/25/20 03:35 05/26/20 08:37 SARS-CoV-2 Antigen (Rapid) Negative (NEGATIVE) Urine Collection Type Unknown Urine Color Yellow Urine Clarity Clear Urine pH 6.0 (<5.0-8.0) Urine Specific [place] >=1.030 (1.000-1.030) Urine Protein Negative mg/dL (NEG-TRACE) Urine Glucose (UA) Negative mg/dL (NEG) Urine Ketones (Stick) Negative mg/dL (NEG) Urine Blood Negative (NEG) Urine Nitrite Negative (NEG) Urine Bilirubin Negative (NEG) Urine Urobilinogen Dipstick 0.2 mg/dL (0.2 mg/dL) Urine Leukocyte Esterase Negative (NEG) Urine RBC 0 /HPF (0-2) Urine WBC Occ /HPF (0-4) Urine Squamous Epithelial Cells Few /LPF Urine Bacteria Few /HPF (0-FEW) Urine Mucus Slight /LPF Urine Test Negative (NEG) Urine Opiates Screen Pos (NEG) Urine Methadone Screen Neg (NEG) Urine Barbiturates Neg (NEG) Urine Phencyclidine Screen Neg (NEG) Urine Amphetamine/Methamphetamine Neg (NEG) Urine Benzodiazepines Screen Neg (NEG) Urine Cocaine Screen Neg (NEG) Urine Cannabinoids Screen Pos (NEG) Urine Ethyl Alcohol Neg (NEG) White Blood Count 5.8 x10^3/uL (4.0-11.0) 6.2 x10^3/uL (4.0-11.0) Red Blood Count 2.72 x10^6/uL (3.50-5.40) 3.10 x10^6/uL (3.50-5.40) Hemoglobin 7.5 g/dL (12.0-15.5) 8.4 g/dL (12.0-15.5) Hematocrit 23.2 % (36.0-47.0) 26.5 % (36.0-47.0) Mean Corpuscular Volume 86 fL (79-100) 86 fL (79-100) Mean Corpuscular Hemoglobin 27 pg (25-35) 27 pg (25-35) Mean Corpuscular Hemoglobin Concent 32 g/dL (31-37) 32 g/dL (31-37) Red Cell Distribution Width 20.5 % (11.5-14.5) 20.0 % (11.5-14.5) Platelet Count 373 x10^3/uL (140-400) 402 x10^3/uL (140-400) Neutrophils (%) (Auto) 65 % (31-73) 85 % (31-73) Lymphocytes (%) (Auto) 25 % (24-48) 9 % (24-48) Monocytes (%) (Auto) 8 % (0-9) 6 % (0-9) Eosinophils (%) (Auto) 2 % (0-3) 0 % (0-3) Basophils (%) (Auto) 0 % (0-3) 1 % (0-3) Neutrophils # (Auto) 3.7 x10^3/uL (1.8-7.7) 5.3 x10^3/uL (1.8-7.7) Lymphocytes # (Auto) 1.5 x10^3/uL (1.0-4.8) 0.5 x10^3/uL (1.0-4.8) Monocytes # (Auto) 0.5 x10^3/uL (0.0-1.1) 0.4 x10^3/uL (0.0-1.1) Eosinophils # (Auto) 0.1 x10^3/uL (0.0-0.7) 0.0 x10^3/uL (0.0-0.7) Basophils # (Auto) 0.0 x10^3/uL (0.0-0.2) 0.0 x10^3/uL (0.0-0.2) Sodium Level 138 mmol/L (136-145) 136 mmol/L (136-145) Potassium Level 3.1 mmol/L (3.5-5.1) 3.6 mmol/L (3.5-5.1) Chloride Level 105 mmol/L (98-107) 103 mmol/L (98-107) Carbon Dioxide Level 21 mmol/L (21-32) 21 mmol/L (21-32) Anion Gap 12 (6-14) 12 (6-14) Blood Urea Nitrogen 5 mg/dL (7-20) 3 mg/dL (7-20) Creatinine 0.8 mg/dL (0.6-1.0) 1.1 mg/dL (0.6-1.0) Estimated GFR (Cockcroft-Gault) 97.7 67.6 BUN/Creatinine Ratio 6 (6-20) Glucose Level 86 mg/dL (70-99) 165 mg/dL (70-99) Calcium Level 7.8 mg/dL (8.5-10.1) 8.9 mg/dL (8.5-10.1) Magnesium Level 1.4 mg/dL (1.8-2.4) Iron Level 15 ug/dL (50-170) Total Iron Binding Capacity 339 ug/dL (250-450) Iron Saturation 4 % (15-34) Total Bilirubin 0.9 mg/dL (0.2-1.0) Aspartate Amino Transf (AST/SGOT) 21 U/L (15-37) Alanine Aminotransferase (ALT/SGPT) 36 U/L (14-59) Alkaline Phosphatase 50 U/L (46-116) Total Protein 6.0 g/dL (6.4-8.2) Albumin 3.0 g/dL (3.4-5.0) Albumin/Globulin Ratio 1.0 (1.0-1.7) Vitamin B12 Level 367 pg/mL (247-911) Laboratory Tests Test 05/26/20 08:37 White Blood Count 6.2 x10^3/uL (4.0-11.0) Red Blood Count 3.10 x10^6/uL (3.50-5.40) Hemoglobin 8.4 g/dL (12.0-15.5) Hematocrit 26.5 % (36.0-47.0) Mean Corpuscular Volume 86 fL (79-100) Mean Corpuscular Hemoglobin 27 pg (25-35) Mean Corpuscular Hemoglobin Concent 32 g/dL (31-37) Red Cell Distribution Width 20.0 % (11.5-14.5) Platelet Count 402 x10^3/uL (140-400) Neutrophils (%) (Auto) 85 % (31-73) Lymphocytes (%) (Auto) 9 % (24-48) Monocytes (%) (Auto) 6 % (0-9) Eosinophils (%) (Auto) 0 % (0-3) Basophils (%) (Auto) 1 % (0-3) Neutrophils # (Auto) 5.3 x10^3/uL (1.8-7.7) Lymphocytes # (Auto) 0.5 x10^3/uL (1.0-4.8) Monocytes # (Auto) 0.4 x10^3/uL (0.0-1.1) Eosinophils # (Auto) 0.0 x10^3/uL (0.0-0.7) Basophils # (Auto) 0.0 x10^3/uL (0.0-0.2) Sodium Level 136 mmol/L (136-145) Potassium Level 3.6 mmol/L (3.5-5.1) Chloride Level 103 mmol/L (98-107) Carbon Dioxide Level 21 mmol/L (21-32) Anion Gap 12 (6-14) Blood Urea Nitrogen 3 mg/dL (7-20) Creatinine 1.1 mg/dL (0.6-1.0) Estimated GFR (Cockcroft-Gault) 67.6 Glucose Level 165 mg/dL (70-99) Calcium Level 8.9 mg/dL (8.5-10.1) Medications Current Medications Sodium Chloride (Normal Saline Flush) 3 ml QSHIFT PRN IV AFTER MEDS AND BLOOD DRAWS; Start 05/24/20 at 23:30 Sodium Chloride 1,000 ml @ 100 mls/hr Q10H IV Last administered on 05/26/20at 03:02; Start 05/24/20 at 23:45 Ondansetron HCl (Zofran) 4 mg PRN Q4HRS PRN IV NAUSEA/VOMITING; Start 05/24/20 at 23:30 Acetaminophen (Tylenol) 650 mg PRN Q4HRS PRN PO TEMP OVER 100.4F OR MILD PAIN; Start 05/24/20 at 23:30 Piperacillin Sod/ Tazobactam Sod 3.375 gm/Sodium Chloride 50 ml @ 100 mls/hr Q6HRS IV Last administered on 05/26/20at 06:00; Start 05/25/20 at 00:00 Ketorolac Tromethamine (Toradol 30mg Vial) 30 mg PRN Q6HRS PRN IVP MILD - MODERATE PAIN Last administered on 05/25/20at 19:19; Start 05/24/20 at 23:30; Stop 05/29/20 at 23:29 Morphine Sulfate (Morphine Sulfate) 2 mg PRN Q2HR PRN IV PAIN; Start 05/24/20 at 23:30; Stop 05/24/20 at 23:37; Status DC Potassium Chloride/Water 100 ml @ 100 mls/hr Q1H IV Last administered on 05/25/20at 01:44; Start 05/25/20 at 00:00; Stop 05/25/20 at 01:59; Status DC Multivitamins 10 ml/Thiamine HCl 100 mg/Folic Acid 1 mg/Sodium Chloride 1,011.2 ml @ 100 mls/ hr DAILY IV Last administered on 05/26/20at 09:49; Start 05/25/20 at 09:00; Stop 05/29/20 at 19:07 Lorazepam (Ativan) 1 mg PRN Q1HR PRN PO For CIWA 8-14 Last administered on 05/26/20at 09:47; Start 05/24/20 at 23:45 Lorazepam (Ativan Inj) 0.5 mg PRN Q1HR PRN IV For CIWA 8-14 Last administered on 05/25/20at 20:13; Start 05/24/20 at 23:45 Clonidine HCl (Catapres) 0.1 mg PRN Q1HR PRN PO SBP > 180 or DBP > 100, MRX3; Start 05/24/20 at 23:45 Hydromorphone HCl (Dilaudid) 0.4 mg PRN Q4HRS PRN IVP SEVERE PAIN Last administered on 05/25/20at 06:12; Start 05/24/20 at 23:45 Alprazolam (Xanax) 0.5 mg PRN BID PRN PO ANXIETY / AGITATION Last administered on 05/25/20at 00:36; Start 05/24/20 at 23:45 Naloxone HCl (Narcan) 0.4 mg PRN Q2MIN PRN IV SEE COMMENTS; Start 05/24/20 at 23:45 Nicotine (Nicoderm Cq 21mg) 1 patch DAILY TD Last administered on 05/26/20at 09:50; Start 05/25/20 at 00:00 Fentanyl Citrate (Fentanyl 2ml Vial) 25 mcg PRN Q5MIN PRN IV MILD PAIN 1-3; Start 05/25/20 at 08:30; Stop 05/25/20 at 20:00; Status DC Fentanyl Citrate (Fentanyl 2ml Vial) 50 mcg PRN Q5MIN PRN IV MODERATE TO SEVERE PAIN Last administered on 05/25/20at 13:57; Start 05/25/20 at 08:30; Stop 05/25/20 at 20:00; Status DC Morphine Sulfate (Morphine Sulfate) 1 mg PRN Q10MIN PRN IV SEVERE PAIN 7-10; Start 05/25/20 at 08:30; Stop 05/25/20 at 20:00; Status DC Ringer's Solution 1,000 ml @ 30 mls/hr Q24H IV Last administered on 05/25/20at 11:27; Start 05/25/20 at 08:24; Stop 05/25/20 at 20:23; Status DC Lidocaine HCl (Xylocaine-Mpf 1% 2ml Vial) 2 ml PRN 1X PRN ID PRIOR TO IV START; Start 05/25/20 at 08:30; Stop 05/25/20 at 20:00; Status DC Hydromorphone HCl (Dilaudid) 0.5 mg PRN Q10MIN PRN IV SEV PAIN, Second choice Last administered on 05/25/20at 15:53; Start 05/25/20 at 08:30; Stop 05/25/20 at 20:00; Status DC Prochlorperazine Edisylate (Compazine) 5 mg PACU PRN PRN IV NAUSEA, MRX1; Start 05/25/20 at 08:30; Stop 05/25/20 at 20:00; Status DC Ondansetron HCl (Zofran) 4 mg STK-MED ONCE .ROUTE ; Start 05/25/20 at 10:49; Stop 05/25/20 at 10:49; Status DC Propofol (Diprivan) 200 mg STK-MED ONCE IV ; Start 05/25/20 at 10:49; Stop 05/25/20 at 10:49; Status DC Lidocaine HCl (Lidocaine Pf 2% Vial) 5 ml STK-MED ONCE .ROUTE ; Start 05/25/20 at 10:49; Stop 05/25/20 at 10:49; Status DC Dexamethasone Sodium Phosphate (Decadron) 4 mg STK-MED ONCE .ROUTE ; Start 05/25/20 at 10:49; Stop 05/25/20 at 10:49; Status DC Midazolam HCl (Versed) 2 mg STK-MED ONCE .ROUTE ; Start 05/25/20 at 10:49; Stop 05/25/20 at 10:49; Status DC Fentanyl Citrate (Fentanyl 2ml Vial) 100 mcg STK-MED ONCE .ROUTE ; Start 05/25/20 at 10:49; Stop 05/25/20 at 10:49; Status DC Succinylcholine Chloride (Anectine) 200 mg STK-MED ONCE .ROUTE ; Start 05/25/20 at 10:49; Stop 05/25/20 at 10:50; Status DC Rocuronium [place] (Zemuron) 50 mg STK-MED ONCE .ROUTE ; Start 05/25/20 at 10:49; Stop 05/25/20 at 10:50; Status DC Famotidine (Pepcid Vial) 20 mg STK-MED ONCE .ROUTE ; Start 05/25/20 at 10:49; Stop 05/25/20 at 10:50; Status DC Ketorolac Tromethamine (Toradol 30mg Vial) 30 mg STK-MED ONCE .ROUTE ; Start 05/25/20 at 10:52; Stop 05/25/20 at 10:53; Status DC Dexamethasone Sodium Phosphate (Decadron) 4 mg STK-MED ONCE .ROUTE ; Start 05/25/20 at 11:52; Stop 05/25/20 at 11:52; Status DC Bupivacaine HCl/ Epinephrine Bitart (Sensorcain-Epi 0.5%-1:921024 Mpf) 30 ml STK-MED ONCE .ROUTE Last administered on 05/25/20at 12:18; Start 05/25/20 at 11:56; Stop 05/25/20 at 11:57; Status DC Fentanyl Citrate (Fentanyl 2ml Vial) 100 mcg STK-MED ONCE .ROUTE ; Start 05/25/20 at 12:18; Stop 05/25/20 at 12:18; Status DC Glycopyrrolate (Robinul) 1 mg STK-MED ONCE .ROUTE ; Start 05/25/20 at 12:19; Stop 05/25/20 at 12:19; Status DC Neostigmine [place] (Neostigmine Methylsulfate) 5 mg STK-MED ONCE .ROUTE ; St art 05/25/20 at 12:19; Stop 05/25/20 at 12:19; Status DC Sevoflurane (Ultane) 60 ml STK-MED ONCE IH ; Start 05/25/20 at 12:29; Stop 05/25/20 at 12:30; Status DC Oxycodone/ Acetaminophen (Percocet 5/325) 1 tab PRN Q4HRS PRN PO MODERATE PAIN; Start 05/25/20 at 12:30 Oxycodone/ Acetaminophen (Percocet 5/325) 2 tab PRN Q4HRS PRN PO SEVERE PAIN Last administered on 05/26/20at 09:47; Start 05/25/20 at 12:45 Active Scripts Active Reported Xanax (Alprazolam) 0.5 Mg Tablet 0.5 Mg PO PRN Q6HRS PRN Vitals/I & O Vital Sign - Last 24 Hours 05/25/20 05/25/20 05/25/20 05/25/20 11:17 12:44 12:44 13:00 Temp 97.9 97.2 97.9 97.2 Pulse 57 82 61 Resp 18 20 12 B/P (MAP) 149/87 151/80 141/87 Pulse Ox 99 100 100 O2 Delivery Room Air Mask Simple Mask Simple Mask O2 Flow Rate 8 8 8 05/25/20 05/25/20 05/25/20 05/25/20 13:12 13:16 13:30 13:57 Pulse 64 67 Resp 14 12 14 16 B/P (MAP) 122/71 115/70 Pulse Ox 100 100 97 98 O2 Delivery Simple Mask Simple Mask Room Air Room Air O2 Flow Rate 8.0 8 05/25/20 05/25/20 05/25/20 05/25/20 14:45 15:00 15:15 15:53 Pulse 60 62 62 Resp 19 B/P (MAP) 116/82 (93) 137/86 (103) 137/86 (103) Pulse Ox 98 100 100 O2 Delivery Room Air Room Air Room Air Room Air 05/25/20 05/25/20 05/25/20 05/25/20 16:23 19:00 20:00 22:59 Temp 97.7 97.7 Pulse 72 Resp 18 20 B/P (MAP) 134/86 (102) Pulse Ox 99 O2 Delivery Room Air Room Air Room Air Room Air 05/25/20 05/25/20 05/26/20 05/26/20 23:00 23:59 03:00 07:00 Temp 98.5 98.7 98.7 98.5 98.7 98.7 Pulse 61 55 68 Resp 18 20 18 18 B/P (MAP) 150/86 (107) 124/59 (80) 137/76 (96) Pulse Ox 94 95 99 O2 Delivery Room Air Room Air Room Air Room Air 05/26/20 05/26/20 08:00 09:47 Resp 19 O2 Delivery Room Air Intake and Output 05/25/20 05/25/20 05/26/20 15:00 23:00 07:00 Intake Total 800 ml 100 ml 2880 ml Output Total 60 ml Balance 740 ml 100 ml 2880 ml Justicifation of Admission Dx: Justifications for Admission: Justification of Admission Dx: Yes MARIBEL LUND MD May 26, 2020 11:13
--- NOTE | 2020-05-26 12:30 | NUR ---
[facility] following. Discussed with RN, pt on GI soft diet. Per chart, surgery okay for discharge home today. CELY notified Dr. Lopes, awaiting confirmation of discharge.
--- NOTE | 2020-05-26 13:23 | NUR ---
Patient insistent to go downstairs this morning, stated that her 4 year old daughter is going to drop by at the visitor's entrance. This nurse explained to the patient that she cannot leave the floor since it's against hospital policy. She was upset saying that the rules keep on changing, stating that she was able to go downstairs yesterday. This nurse notified charge nurse and site supervisor. Patient was escorted by another RN to go downstairs for 15 minutes then came back to the floor. Reinforced teaching that she has to stay in the unit per policy.
--- NOTE | 2020-05-26 13:49 | PDOC3 ---
Discharge Summary Visit Information Date of Admission: May 25, 2020 Date of Discharge: May 26, 2020 Admitting Diagnosis Comment: Acute appendicitis Iron deficiency anemia Etiology undetermined determined at the present time for the anemia since there is no history of excessive bleeding Marijuana use Final Diagnosis Acute appendicitis Iron deficiency anemia Etiology undetermined determined at the present time for the anemia since there is no history of excessive bleeding Marijuana use Brief Hospital Course Allergies Allergies Coded Allergies Type Severity Reaction Last Updated Verified morphine Allergy Intermediate Anaphylaxis 05/24/20 Yes Vital Signs Vital Signs Date Time Temp Pulse Resp B/P (MAP) Pulse Ox O2 Delivery O2 Flow Rate FiO2 05/26/20 11:00 98.2 61 18 146/84 (104) 98 Room Air 98.2 05/25/20 13:16 8 Lab Results Laboratory Tests Test 05/25/20 01:09 05/25/20 02:10 05/25/20 03:35 05/26/20 08:37 SARS-CoV-2 Antigen (Rapid) Negative (NEGATIVE) Urine Collection Type Unknown Urine Color Yellow Urine Clarity Clear Urine pH 6.0 (<5.0-8.0) Urine Specific [place] >=1.030 (1.000-1.030) Urine Protein Negative mg/dL (NEG-TRACE) Urine Glucose (UA) Negative mg/dL (NEG) Urine Ketones (Stick) Negative mg/dL (NEG) Urine Blood Negative (NEG) Urine Nitrite Negative (NEG) Urine Bilirubin Negative (NEG) Urine Urobilinogen Dipstick 0.2 mg/dL (0.2 mg/dL) Urine Leukocyte Esterase Negative (NEG) Urine RBC 0 /HPF (0-2) Urine WBC Occ /HPF (0-4) Urine Squamous Epithelial Cells Few /LPF Urine Bacteria Few /HPF (0-FEW) Urine Mucus Slight /LPF Urine Test Negative (NEG) Urine Opiates Screen Pos (NEG) Urine Methadone Screen Neg (NEG) Urine Barbiturates Neg (NEG) Urine Phencyclidine Screen Neg (NEG) Urine Amphetamine/Methamphetamine Neg (NEG) Urine Benzodiazepines Screen Neg (NEG) Urine Cocaine Screen Neg (NEG) Urine Cannabinoids Screen Pos (NEG) Urine Ethyl Alcohol Neg (NEG) White Blood Count 5.8 x10^3/uL (4.0-11.0) 6.2 x10^3/uL (4.0-11.0) Red Blood Count 2.72 x10^6/uL (3.50-5.40) 3.10 x10^6/uL (3.50-5.40) Hemoglobin 7.5 g/dL (12.0-15.5) 8.4 g/dL (12.0-15.5) Hematocrit 23.2 % (36.0-47.0) 26.5 % (36.0-47.0) Mean Corpuscular Volume 86 fL (79-100) 86 fL (79-100) Mean Corpuscular Hemoglobin 27 pg (25-35) 27 pg (25-35) Mean Corpuscular Hemoglobin Concent 32 g/dL (31-37) 32 g/dL (31-37) Red Cell Distribution Width 20.5 % (11.5-14.5) 20.0 % (11.5-14.5) Platelet Count 373 x10^3/uL (140-400) 402 x10^3/uL (140-400) Neutrophils (%) (Auto) 65 % (31-73) 85 % (31-73) Lymphocytes (%) (Auto) 25 % (24-48) 9 % (24-48) Monocytes (%) (Auto) 8 % (0-9) 6 % (0-9) Eosinophils (%) (Auto) 2 % (0-3) 0 % (0-3) Basophils (%) (Auto) 0 % (0-3) 1 % (0-3) Neutrophils # (Auto) 3.7 x10^3/uL (1.8-7.7) 5.3 x10^3/uL (1.8-7.7) Lymphocytes # (Auto) 1.5 x10^3/uL (1.0-4.8) 0.5 x10^3/uL (1.0-4.8) Monocytes # (Auto) 0.5 x10^3/uL (0.0-1.1) 0.4 x10^3/uL (0.0-1.1) Eosinophils # (Auto) 0.1 x10^3/uL (0.0-0.7) 0.0 x10^3/uL (0.0-0.7) Basophils # (Auto) 0.0 x10^3/uL (0.0-0.2) 0.0 x10^3/uL (0.0-0.2) Sodium Level 138 mmol/L (136-145) 136 mmol/L (136-145) Potassium Level 3.1 mmol/L (3.5-5.1) 3.6 mmol/L (3.5-5.1) Chloride Level 105 mmol/L (98-107) 103 mmol/L (98-107) Carbon Dioxide Level 21 mmol/L (21-32) 21 mmol/L (21-32) Anion Gap 12 (6-14) 12 (6-14) Blood Urea Nitrogen 5 mg/dL (7-20) 3 mg/dL (7-20) Creatinine 0.8 mg/dL (0.6-1.0) 1.1 mg/dL (0.6-1.0) Estimated GFR (Cockcroft-Gault) 97.7 67.6 BUN/Creatinine Ratio 6 (6-20) Glucose Level 86 mg/dL (70-99) 165 mg/dL (70-99) Calcium Level 7.8 mg/dL (8.5-10.1) 8.9 mg/dL (8.5-10.1) Magnesium Level 1.4 mg/dL (1.8-2.4) Iron Level 15 ug/dL (50-170) Total Iron Binding Capacity 339 ug/dL (250-450) Iron Saturation 4 % (15-34) Total Bilirubin 0.9 mg/dL (0.2-1.0) Aspartate Amino Transf (AST/SGOT) 21 U/L (15-37) Alanine Aminotransferase (ALT/SGPT) 36 U/L (14-59) Alkaline Phosphatase 50 U/L (46-116) Total Protein 6.0 g/dL (6.4-8.2) Albumin 3.0 g/dL (3.4-5.0) Albumin/Globulin Ratio 1.0 (1.0-1.7) Vitamin B12 Level 367 pg/mL (247-911) Laboratory Tests Test 05/26/20 08:37 White Blood Count 6.2 x10^3/uL (4.0-11.0) Red Blood Count 3.10 x10^6/uL (3.50-5.40) Hemoglobin 8.4 g/dL (12.0-15.5) Hematocrit 26.5 % (36.0-47.0) Mean Corpuscular Volume 86 fL (79-100) Mean Corpuscular Hemoglobin 27 pg (25-35) Mean Corpuscular Hemoglobin Concent 32 g/dL (31-37) Red Cell Distribution Width 20.0 % (11.5-14.5) Platelet Count 402 x10^3/uL (140-400) Neutrophils (%) (Auto) 85 % (31-73) Lymphocytes (%) (Auto) 9 % (24-48) Monocytes (%) (Auto) 6 % (0-9) Eosinophils (%) (Auto) 0 % (0-3) Basophils (%) (Auto) 1 % (0-3) Neutrophils # (Auto) 5.3 x10^3/uL (1.8-7.7) Lymphocytes # (Auto) 0.5 x10^3/uL (1.0-4.8) Monocytes # (Auto) 0.4 x10^3/uL (0.0-1.1) Eosinophils # (Auto) 0.0 x10^3/uL (0.0-0.7) Basophils # (Auto) 0.0 x10^3/uL (0.0-0.2) Sodium Level 136 mmol/L (136-145) Potassium Level 3.6 mmol/L (3.5-5.1) Chloride Level 103 mmol/L (98-107) Carbon Dioxide Level 21 mmol/L (21-32) Anion Gap 12 (6-14) Blood Urea Nitrogen 3 mg/dL (7-20) Creatinine 1.1 mg/dL (0.6-1.0) Estimated GFR (Cockcroft-Gault) 67.6 Glucose Level 165 mg/dL (70-99) Calcium Level 8.9 mg/dL (8.5-10.1) Brief Hospital Course History of Present Illness History of Present Illness Patient is a 39-year-old female with no significant past medical history who was in her usual state of health until approximately 2 days prior to her admission when she started complaining of abdominal pain which was vague and not very localized. The patient described the discomfort as a sharp sensation 3-5 intensity out of 10. No radiation to the back no urinary symptoms no nausea vomiting diarrhea reported. The patient denies any sick contacts no travels outside this area. The patient denied any fever chills no diaphoresis, she did not have any dietary transgressions prior to the event. The patient unfortunately developed quite severe symptoms approximately a day prior to her admission or visit to the emergency department and the pain got progressively worse to a 10 out of 10 intensity associated with nausea. The patient decided to visit her local emergency department at [place] where she was diagnosed by imaging studies with appendicitis and transferred to our institution for further evaluation and treatment. Patient at the time of my visit is in no apparent distress the patient denies any abdominal discomfort no fever chills no urinary symptoms no other complaints. Laboratory data has been discussed with the patient and inquired about excessive bleeding given her degree of anemia. She also has evidence of iron deficiency on her laboratory data. Reassurance has been provided and the plan of care was explained in detail no concerns were voiced d uring my encounter [facility] [address] [place] [address] PHYSICIAN SERVICES OPERATIVE REPORT : [id number] Signed Patient: ADRIANA ABARCA Acct:[id number] Unit: [id number] : 1980 Loc: [address] [place] [address]/ Bed: [facility] Age/Sex: 39 / F ADM Status: ADM IN ADM Date: 05/24/20 Operative Note Operative Note Preoperative Diagnosis: Acute Appendicitis Postoperative Diagnosis: Same Procedure: Laparoscopic appendectomy Surgeon: Zaire Rn Lactation Consultant: RAQUEL Wilkerson Anesthesia: Gen. EBL: 10 mL Specimen: Appendix to pathology Drains: None Complications: None Indication: The patient is a 39-year-old female who reported to the emergency department with abdominal pain. The evaluation is consistent with acute append icitis. The patient was offered surgical treatment with a laparoscopic appendectomy. The risks of surgery were discussed which include bleeding, infection, visceral injury, pain, anesthetic risk, potential need for additional surgery or procedure. The patient understands and would like to proceed. Patient recovered well from her procedure. She was ambulating the hallways on the day of discharge she was deemed appropriate for discharge from the hospital with instructions to follow-up in the outpatient setting with Dr. Tai. Recommendations were to keep patient pain management and the signs and symptoms of concern and when to seek medical attention were discussed prior to discharge as well. Patient acknowledges understanding of all the instructions and she was in good spirits to be going home Gen.: well-developed well-nourished in no apparent distress Head: Normal shape atraumatic Eyes: Pupils equal reactive to light and accommodation, normal conjunctivae and lids Ears: Normal shape Nose: Normal shape no trauma Mouth: No exudates of the back of throat no thrush no lesions Neck: Supple no JVD no carotid bruit or lymphadenopathy no thyromegaly Chest: Lungs clear to auscultation with good inspiratory effort no crackles rales or rhonchi Cardiovascular: S1-S2 regular rhythm no murmurs gallops or rubs Abdomen: Bowel sounds present soft nontender no hepatosplenomegaly appreciated sign Extremities: No clubbing no cyanosis no edema peripheral pulses palpated bilaterally Neurological: Alert awake oriented in person time place and situation, cranial nerves II through XII intact, no motor or sensory deficits appreciated Psych: Appropriate mood, cooperative Discharge Information Condition at Discharge: Improved Follow Up: Weeks Disposition/Orders: D/C to Home Scheduled PRN Alprazolam (Xanax) 0.5 Mg Tablet, 0.5 MG PO PRN Q6HRS PRN for ANXIETY / AGITATION, Ref 0 (Reported) Entered as Reported by: SELENA BATISTA RN on 05/24/202335 Last Action: Continued on 05/24/202344 by VERNELL MARES MD Justicifation of Admission Dx: Justifications for Admission: Justification of Admission Dx: Yes MARIBEL LUND MD May 26, 2020 13:49
[2020-05-26] MEDS ORDERED: KETO10TA PO (15:02)
[2020-05-26] MEDS ORDERED: FERR-36 PO (15:02)
--- NOTE | 2020-05-26 15:48 | NUR ---
Patient was notified that she's getting discharged after stating to this nurse that she needs about 2 hours to have family come in and pick her up. After 10 minutes, she called multiple times to the nurse station saying that she needs to get discharged because her ride was already waiting downstairs. This nurse told her that I will give her discharge papers after I get the clarification from the doctor regarding her home meds. The patient said that her nurse went to her room and just disappeared after telling her that she's going home. The patient was impulsive and walked to the nurse station 2x asking to go home and also wanted her pain medicine before leaving.
--- NOTE | 2020-05-26 15:54 | NUR ---
Discharge Note: BRET ABARCA [place] Discharge instructions and discharge home medications reviewed with patient and a copy given. All questions have been answered and understanding verbalized. The following instructions and handouts were given: Take home meds as directed, prescription sent to [facility] in [place]. Follow up with Dr. Tai in 2 weeks, [phone] Wound care as directed, no tub baths no showers until seen by Watch out for fever, pus draining from the wound site bleeding. FF up with PCP as needed Discontinued lines and drains: patient pulled her IV out, site is clean, no bleeding Patient discharged to home with self-care via wheelchair accompanied by family/friends at 1520.
--- NOTE | 2020-05-26 18:08 | PATHOLOGY ---
[facility] Accession Number: [id number] . 01 Material submitted: . appendix - APPENDIX . 01 Clinical history: . acute appendicitis . 02 Diagnosis: Appendix, laparoscopic appendectomy: - Acute appendicitis. ([facility] 05/26/2020) . [facility] 05/26/2020 1413 Local . 02 Comment: There is no evidence of rupture. ([facility] 05/26/2020) . 02 Electronically signed: . Shaw Art MD, Pathologist NPI- [id number] . 01 Gross description: . The specimen is received in formalin, labeled "[place], Sesar, appendix" and consists of an appendix measuring 6.8 cm in length and up to 0.7 cm in diameter with mesoappendix measuring 2.5 cm thick. The serosa is pink-piedra and focally hemorrhagic. The margin is closed with a line of georgie and inked black. Sectioning reveals a pinpoint to dilated lumen. [employer] sections are submitted in A1. ([facility]; 05/25/2020) SYU/SYU 05/25/2020 1826 Local . 02 Pathologist provided ICD-10: K35.80 . 02 CPT . 512403 Specimen Comment: A courtesy copy of this report has been sent to [phone] Specimen Comment: [id number] Specimen Comment: Report sent to / DR MARES Performed at: 01 [facility] [address], [place] [id number] MD Marv Nieto MD Phone: [phone] Performed at: 02 [facility] [address], [place] [id number] MD Shaw Art MD Phone: [phone]
== END 2020-05-26 15:20 | disposition home or self-care (01) | DRG 343 ==
LOC: 4 NORTH 23:00
PROVIDERS: ADMIT Internal Medicine; ATTEND Internal Medicine
PROC: 0DTJ4ZZ Resection of Appendix, Percutaneous Endoscopic Approach (ICD-10-PCS; principal; 2020-05-25 12:00)
DX: K35.80 Unspecified acute appendicitis (principal); D50.9 Iron deficiency anemia, unspecified; F12.90 Cannabis use, unspecified, uncomplicated; F41.9 Anxiety disorder, unspecified; Z79.899 Other long term (current) drug therapy; Z88.8 Allergy status to other drugs, medicaments and biological substances; Z03.818 Encounter for observation for suspected exposure to other biological agents ruled out
CPT/HCPCS: 36415; 80048; 80053; 80307; 81001; 81025; 82607; 83540; 83550; 83735; 85025; 87426; 88304; J0330; J1100; J1170; J1885; J2060; J2250; J2405; J2543; J2704; J2710; J3010; J3411; J3480; J3490; J7030; J7120; G0378; U0003-CS

== ENCOUNTER 2020-08-22 18:02 | Inpatient (IN) | payer OTHER ==
[~2020-08-22] VITALS: Ht 167.6 cm; Wt 64.2 kg
[~2020-08-22 18:02] MED LIST: ALPR0.5T PO; FERR-36 PO; KETO10TA PO
[2020-08-22 18:04] VITALS: BP 117/88
[2020-08-22] MEDS ORDERED: ONDANSETRON PF 4 MG/2 ML VIAL. IVP PRN (18:30)
[2020-08-22] MEDS ORDERED: LABETALOL 20 MG/4 ML DISP.SYRIN. IVP PRN (18:30)
[2020-08-22] MEDS ORDERED: HALOPERIDOL LACTATE 5 MG/ML VIAL. IM PRN (18:30)
[2020-08-22] MEDS ORDERED: IV NORMAL SALINE 1000ML BAG 1,000 ML IV SCH (18:30)
[2020-08-22] MEDS ORDERED: IV NORMAL SALINE 1000ML BAG 1,000 ML IV ONE (18:30)
[2020-08-22 19:00] VITALS: BP 125/93
[2020-08-22] MEDS: MULTIVIT INFUSN,ADULT 4,VIT K 10 ML, THIAMINE INJ 100 MG, FOLIC ACID INJ 1 MG in IV NOR... IV SCH (19:00)
[2020-08-22] MEDS: PIPERACILLIN/TAZOBACTAM 3.375 GM in IV NORMAL SALINE 50ML 50 ML IV SCH (19:00)
[2020-08-22] MEDS: HYDROmorphone 2 MG/ML VIAL IVP PRN (19:11)
[2020-08-22 19:22] LABS: BASO % 1 % (0-3); EOS # 0.1 x10^3/uL (0.0-0.7); EOS % 1 % (0-3); HEMATOCRIT 33.3 % (36.0-47.0); HEMOGLOBIN 10.4 g/dL (12.0-15.5); LYMPH # 1.1 x10^3/uL (1.0-4.8); LYMPH % 17 % (24-48); MEAN CORPUSCULAR HEMOGLOBIN 27 pg (25-35); MEAN CORPUSCULAR HGB CONC 31 g/dL (31-37); MEAN CORPUSCULAR VOLUME 87 fL (79-100); MONO % 16 % (0-9); NEUT # 4.1 x10^3/uL (1.8-7.7); NEUT % 65 % (31-73); PLATELET COUNT 386 x10^3/uL (140-400); RED BLOOD COUNT 3.85 x10^6/uL (3.50-5.40); WHITE BLOOD COUNT 6.3 x10^3/uL (4.0-11.0)
[2020-08-22 19:31] LABS: CREATININE 0.8 mg/dL (0.6-1.0); GFR 97.7; POTASSIUM 3.1 mmol/L (3.5-5.1)
[2020-08-22 19:37] LABS: ALBUMIN 2.6 g/dL (3.4-5.0); ALBUMIN/GLOBULIN RATIO 0.8 (1.0-1.7); TOTAL BILIRUBIN 0.6 mg/dL (0.2-1.0); TOTAL PROTEIN 5.9 g/dL (6.4-8.2)
[2020-08-22 20:00] VITALS: BP 116/78
[2020-08-22 20:42] LABS: PLT ESTIMATE ADEQUATE (ADEQUATE); POLYCHROMASIA SLIGHT
[2020-08-22 20:52] LABS: ANISOCYTOSIS MOD; HYPOCHROMIA SLIGHT; OVALOCYTES FEW
[2020-08-22 21:00] VITALS: BP 101/74
[2020-08-22 22:00] VITALS: BP 92/66
[2020-08-22 23:00] VITALS: BP 102/74
[2020-08-23] VITALS (21 sets, daily range): BP systolic 91–129; BP diastolic 58–97
[2020-08-23] MEDS: HYDROmorphone 2 MG/ML VIAL IVP PRN ×5 (00:10→21:32)
[2020-08-23] MEDS: PIPERACILLIN/TAZOBACTAM 3.375 GM in IV NORMAL SALINE 50ML 50 ML IV SCH ×4 (00:10→17:27)
[2020-08-23 05:42] LABS: ALBUMIN 2.4 g/dL (3.4-5.0); ALBUMIN/GLOBULIN RATIO 0.8 (1.0-1.7); CREATININE 0.6 mg/dL (0.6-1.0); GFR 136.1; TOTAL BILIRUBIN 0.6 mg/dL (0.2-1.0); TOTAL PROTEIN 5.5 g/dL (6.4-8.2)
[2020-08-23 05:52] LABS: POTASSIUM 2.9 mmol/L (3.5-5.1)
[2020-08-23 06:00] LABS: BASO % 1 % (0-3); EOS # 0.1 x10^3/uL (0.0-0.7); EOS % 1 % (0-3); HEMATOCRIT 27.8 % (36.0-47.0); HEMOGLOBIN 8.7 g/dL (12.0-15.5); LYMPH # 1.1 x10^3/uL (1.0-4.8); LYMPH % 19 % (24-48); MEAN CORPUSCULAR HEMOGLOBIN 27 pg (25-35); MEAN CORPUSCULAR HGB CONC 31 g/dL (31-37); MEAN CORPUSCULAR VOLUME 88 fL (79-100); MONO % 18 % (0-9); NEUT # 3.5 x10^3/uL (1.8-7.7); NEUT % 62 % (31-73); PLATELET COUNT 375 x10^3/uL (140-400); RED BLOOD COUNT 3.18 x10^6/uL (3.50-5.40); RED CELL DISTRIBUTION WIDTH 22.4 % (11.5-14.5); WHITE BLOOD COUNT 5.6 x10^3/uL (4.0-11.0)
[2020-08-23] MEDS: POTASSIUM CL 40MEQ IN 0.9%NACL 1,000 ML IV SCH ×2 (07:18→17:26)
[2020-08-23] MEDS: PANTOPRAZOLE IV PUSH 40 MG VIAL. IVP SCH (07:18)
--- NOTE | 2020-08-23 08:57 | HP ---
ADMIT DATE: 08/22/2020 HISTORY OF PRESENT ILLNESS: The patient is a 39-year-old -British female patient who was seen originally in the Emergency Room on 08/19 with abdominal pain, mostly in the right upper quadrant and epigastric area. At that time, she was investigated and had had lab work and imaging studies. In fact, her serum lipase was only 216 and her white cell count, hemoglobin, hematocrit are actually on the lower side and her CT scan of the abdomen was unremarkable and showed no evidence of any pancreatic fluid collection; and therefore, the patient was discharged home; however, she came back again on 08/20 with worsening pain in the same area. She was again investigated. Her lab work showed that her serum lipase was high at 412, so she was admitted with acute alcohol-induced pancreatitis. She was kept n.p.o., started on a banana bag, IV fentanyl, and Zofran and also IV fluid. Her serum lipase has dramatically risen on 08/21 to almost 3000 and again yesterday, the patient's pain has dramatically worsened and she developed marked tachycardia, also fever and systemic inflammatory response syndrome. I did repeat her CT scan and the CT scan of the abdomen and pelvis showed that the patient has finding consistent with acute pancreatitis, new from prior study. There is a subtle slowing of hypodensity near the pancreatic head, neck, and body that could be related to acute inflammation or early hypoperfusion, gland necrosis, but no evidence of abscess or pseudocyst. There is moderate amount of ascites, new from prior study. Does have also hyperdense material in the gallbladder lumen consistent with sludge and/or vicarious excreted contrast material and had patchy right basilar airspace disease, likely atelectasis. As her pain worsened and developed fever and systemic inflammatory response syndrome and new ascites, a decision was made to transfer her to [facility] after obtaining two sets of blood culture and starting her on Zosyn and to consult the Gastroenterology team as well as Infectious Disease team. PAST MEDICAL HISTORY: Significant for previous episode of acute pancreatitis that is alcohol related, chronic alcoholism, and nicotine use disorder. PAST SURGICAL HISTORY: Significant for three C-sections. FAMILY HISTORY: Her mother is alive at age of 60 and has hypertension. She does not know her father very well. SOCIAL HISTORY: She has 3 children, 22, 17, and 4 years old. She is single. She smokes half a pack a day. She used to drink alcohol heavily. She has been drinking socially recently. Her last drink was about 5 days prior to admission. At that time, she said she drank 2 shots of vodka. She also smoked marijuana about 2 days prior to admission. She works as a cook. ALLERGIES: SHE IS ALLERGIC TO MORPHINE. MEDICATIONS: At home, she is normally on Protonix and alprazolam. However, she was transferred to [facility] to continue on Zosyn 3.375 g IV every 6 hours, hydromorphone 2 mg IV every 3 hours, sodium chloride 100 mL per hour continuously. She is also on alcohol withdrawal protocol as well as banana bag on a daily basis. PHYSICAL EXAMINATION: GENERAL: When I saw her this morning, the patient is sleepy, but arousable. On questioning her, she continued to complain of pain, but denied any nausea or vomiting. Denied any diarrhea. When I examined her, she was pale, but no jaundice, cyanosis, or thyromegaly. No jugular venous distention. No lower limb edema. VITAL SIGNS: Her heart rate was 126, blood pressure was 110/80, temperature was 99.5, respiratory rate was 16, and oxygen saturation was 91% on room air. HEAD, EYES, EARS, NOSE AND THROAT: Showed normocephalic, atraumatic. NECK: Supple. CARDIAC: Normal first and second heart sounds. No gallop or murmur. CHEST: Shows central trachea, equal bilateral expansion, air entry. I could not really appreciate any crepitation or rhonchi. ABDOMEN: Slightly distended, soft. Tenderness mostly in the epigastric area. There is no guarding or rigidity. No organomegaly. All hernial orifice intact. Bowel sounds normal. NEUROLOGIC: She is sleepy, but arousable. All cranial nerves intact. She moves extremities spontaneously. Her intake over the last 24 hours and output were incompletely recorded. LABORATORY DATA: This morning showed a white cell count 5600, hemoglobin 8.7, hematocrit 28, MCV 88, and platelet count 375,000. Her chemistry this morning showed that her serum sodium was 137, potassium 2.9, chloride 104, bicarbonate 21, anion gap of 12, BUN 5, creatinine 0.6, estimated GFR was 136 mL per minute. Her glucose was 73. Lactic acid was only 1.5, calcium was 8. Total bilirubin, AST, ALT, alkaline phosphatase were normal. Total protein 5.5, albumin 2.4. Her serum lipase is actually down to 393, which is well within normal range. ASSESSMENT AND PLAN: In summary, this is a 39-year-old -British female patient with alcohol-induced severe pancreatitis. She has also systemic inflammatory response syndrome. A repeat CT scan showed that she has also possible pancreatic necrosis. She has also normochromic normocytic anemia. Other problems include nicotine addiction as well as marijuana abuse. Plan is to continue with current plan of management. I did consult the Gastroenterology team as well as the Infectious Disease team. I did send stool, two sets of blood culture, and was started empirically on IV Zosyn 3.375 grams every 6 hours. The patient continued to be tachycardic and relatively hypoxic. Her oxygen saturation was 91% on room air this morning. I will repeat also her chest x-ray. PATRIA YANCEY MD DR: SERA/rita JOB#: [id number] / [id number]
--- NOTE | 2020-08-23 09:02 | PDOC ---
Infectious Disease Note Vital Sign Vital Signs Vital Signs Date Time Temp Pulse Resp B/P (MAP) Pulse Ox O2 Delivery O2 Flow Rate FiO2 08/23/20 08:02 123 18 102/74 (83) 98 Nasal Cannula 1.0 08/23/20 07:10 99.5 99.5 Labs Lab Laboratory Tests Test 08/22/20 19:14 08/23/20 05:10 White Blood Count 6.3 x10^3/uL (4.0-11.0) 5.6 x10^3/uL (4.0-11.0) Red Blood Count 3.85 x10^6/uL (3.50-5.40) 3.18 x10^6/uL (3.50-5.40) Hemoglobin 10.4 g/dL (12.0-15.5) 8.7 g/dL (12.0-15.5) Hematocrit 33.3 % (36.0-47.0) 27.8 % (36.0-47.0) Mean Corpuscular Volume 87 fL (79-100) 88 fL (79-100) Mean Corpuscular Hemoglobin 27 pg (25-35) 27 pg (25-35) Mean Corpuscular Hemoglobin Concent 31 g/dL (31-37) 31 g/dL (31-37) Red Cell Distribution Width 23.0 % (11.5-14.5) 22.4 % (11.5-14.5) Platelet Count 386 x10^3/uL (140-400) 375 x10^3/uL (140-400) Neutrophils (%) (Auto) 65 % (31-73) 62 % (31-73) Lymphocytes (%) (Auto) 17 % (24-48) 19 % (24-48) Monocytes (%) (Auto) 16 % (0-9) 18 % (0-9) Eosinophils (%) (Auto) 1 % (0-3) 1 % (0-3) Basophils (%) (Auto) 1 % (0-3) 1 % (0-3) Neutrophils # (Auto) 4.1 x10^3/uL (1.8-7.7) 3.5 x10^3/uL (1.8-7.7) Lymphocytes # (Auto) 1.1 x10^3/uL (1.0-4.8) 1.1 x10^3/uL (1.0-4.8) Monocytes # (Auto) 1.0 x10^3/uL (0.0-1.1) 1.0 x10^3/uL (0.0-1.1) Eosinophils # (Auto) 0.1 x10^3/uL (0.0-0.7) 0.1 x10^3/uL (0.0-0.7) Basophils # (Auto) 0.0 x10^3/uL (0.0-0.2) 0.0 x10^3/uL (0.0-0.2) Platelet Estimate Adequate (ADEQUATE) Polychromasia Slight Hypochromasia Slight Anisocytosis Mod Ovalocytes Few Sodium Level 136 mmol/L (136-145) 137 mmol/L (136-145) Potassium Level 3.1 mmol/L (3.5-5.1) 2.9 mmol/L (3.5-5.1) Chloride Level 102 mmol/L (98-107) 104 mmol/L (98-107) Carbon Dioxide Level 24 mmol/L (21-32) 21 mmol/L (21-32) Anion Gap 10 (6-14) 12 (6-14) Blood Urea Nitrogen 4 mg/dL (7-20) 5 mg/dL (7-20) Creatinine 0.8 mg/dL (0.6-1.0) 0.6 mg/dL (0.6-1.0) Estimated GFR (Cockcroft-Gault) 97.7 136.1 BUN/Creatinine Ratio 5 (6-20) 8 (6-20) Glucose Level 91 mg/dL (70-99) 73 mg/dL (70-99) Lactic Acid Level 1.5 mmol/L (0.4-2.0) Calcium Level 8.0 mg/dL (8.5-10.1) 8.0 mg/dL (8.5-10.1) Total Bilirubin 0.6 mg/dL (0.2-1.0) 0.6 mg/dL (0.2-1.0) Aspartate Amino Transf (AST/SGOT) 17 U/L (15-37) 17 U/L (15-37) Alanine Aminotransferase (ALT/SGPT) 17 U/L (14-59) 15 U/L (14-59) Alkaline Phosphatase 57 U/L (46-116) 55 U/L (46-116) Total Protein 5.9 g/dL (6.4-8.2) 5.5 g/dL (6.4-8.2) Albumin 2.6 g/dL (3.4-5.0) 2.4 g/dL (3.4-5.0) Albumin/Globulin Ratio 0.8 (1.0-1.7) 0.8 (1.0-1.7) Lipase 768 U/L (73-393) 393 U/L (73-393) Objective Assessment pt seen, consult dictated Plan Plan of Care / ADRIANE AMIN MD Aug 23, 2020 09:02
[2020-08-23] MEDS: MULTIVIT INFUSN,ADULT 4,VIT K 10 ML, THIAMINE INJ 100 MG, FOLIC ACID INJ 1 MG in IV NOR... IV SCH (09:05)
--- NOTE | 2020-08-23 09:19 | RAD ---
Examination: CHEST AP ONLY History: Reason: worsening hypoxia / Spl. Instructions: / History: Comparison: 08/22/2020 CT chest abdomen and pelvis with contrast. Findings: AP portable upright frontal view of the chest was obtained. Limited pulmonary inflation. Right basilar ovoid calcified granuloma is present . Minimal left basilar discoid atelectasis. There is no pneumothorax. No pleural effusion is appreciated. No acute bone abnormality. IMPRESSION: Mild atelectasis at the left lung base. No new consolidation. Electronically signed by: Remy Madera MD (08/23/2020 9:16 AM) [id number]
--- NOTE | 2020-08-23 09:25 | CONS ---
DATE OF CONSULTATION: 08/23/2020 REQUESTING PHYSICIAN: Sadie Schulz MD REASON FOR CONSULTATION: Fever and acute pancreatitis. HISTORY OF PRESENT ILLNESS: This is a 39-year-old female who was transferred from [place]. The patient was admitted may be a week or so ago, was discharged in there and then she returned. The patient had abdominal pain, elevated lipase and she had a fever and tachycardia. Hence, she was transferred here for further management. The patient has settled down all this under the influence of pain medication as she is sleepy. Denies any nausea or vomiting. Denies any diarrhea. Does have abdominal pain. Denies any chest pain, urinary symptoms or bowel symptoms or headache or visual symptoms. PAST MEDICAL HISTORY: Positive for gastroesophageal reflux disease, alcoholism, nicotine use disorder and has had C-sections. SOCIAL HISTORY: Positive for significant alcohol use. Positive for smoking. No drug use. ALLERGIES: SHE IS ALLERGIC TO MORPHINE. REVIEW OF SYSTEMS: As per HPI, all other systems reviewed are negative. PHYSICAL EXAMINATION: GENERAL: Alert, oriented female, not in distress. VITAL SIGNS: Stable with a T-max 99.5. HEENT: NAD. NECK: Supple, no JVP, no lymphadenopathy. LUNGS: Clear. HEART: S1, S2 regular. ABDOMEN: Soft, nontender, no organomegaly. EXTREMITIES: No edema or cyanosis. SKIN: Unremarkable. NEUROLOGIC: The patient is alert, awake though sleepy. No focal neurologic deficit. LABORATORY DATA: White count is normal. Platelets are normal. BUN and creatinine is normal. Her liver functions are normal. Lactic acid was normal. Albumin is 2.4. IMAGING STUDIES: Her CT scan of the abdomen and pelvis is showing findings consistent with acute pancreatitis, settled zone of hypodensity near the pancreatic head and neck, body, which could be necrosis. No pseudocyst or abscess seen. Moderate amount of ascites seen and gallbladder sludge seen. IMPRESSION: 1. Acute pancreatitis with some necrosis. 2. Fever. 3. Alcoholism. 4. Gastroesophageal reflux disease. RECOMMENDATIONS: Continue Zosyn. Continue supportive care and we will follow the cultures and continue to adjust. Thank you very much, Dr. Schulz, for giving me the opportunity to participate in this patient's care. ADRIANE AMIN MD DR: STEFFI/rita JOB#: [id number] / [id number]
[2020-08-23] MEDS: NICOTINE 14MG PATCH. TD PRN (13:49)
--- NOTE | 2020-08-23 14:46 | PDOC2 ---
GI CONSULT Reason For Consult: pancreatitis with necrosis HPI: HPI: 39-year-old female patient transferred from [place] for panceatitis. On 08/19 she was seen in the ER for abdominal pain, mostly in the right upper quadrant and epigastric area. At thattime, she was investigated and had had lab work and imaging studies with her serum lipase was only 216 and her white cell count, hemoglobin, hematocritare actually on the lower side and her CT scan of the abdomen was unremarkable and showed no evidence of any pancreatic fluid collection; and therefore, the patient was discharged home; however, she came back again on 08/20 withworsening pain in the same area. She was again investigated. Her lab work showed that her serum lipase was high at 412, so she was admitted with acutealcohol-induced pancreatitis. She was kept n.p.o., started on a banana bag, IVfentanyl, and Zofran and also IV fluid. Her serum lipase has dramatically risen on 08/21 to a lmost 3000 and again yesterday, the patient's pain has dramaticallyworsened and she developed marked tachycardia, also fever and systemic inflammatory response syndrome. Repeat her CT scan and the CT scan of the abdomen and pelvis showed that the patient has finding consistent with acutepancreatitis, new from prior study. There is a subtle slowing of hypodensity near the pancreatic head, neck, and body that could be related to acute inflammation or early hypoperfusion, gland necrosis, but no evidence of a bscessor pseudocyst. There is moderate amount of ascites, new from prior study. Does have also hyperdense material in the gallbladder lumen consistent with sludge On 08/22, her lipase was 768 and 393 today PMH: PMH: PAST MEDICAL HISTORY: Significant for previous episode of acute pancreatitis that is alcohol related, chronic alcoholism, and nicotine use disorder. PAST SURGICAL HISTORY: Significant for three C-sections. FAMILY HISTORY: Her mother is alive at age of 60 and has hypertension. She does not know her father very well. SOCIAL HISTORY: She has 3 children, 22, 17, and 4 years old. She is single. She smokes half a pack a day. She used to drink alcohol heavily. She has been drinking socially recently. Her last drink was about 5 days prior to admission. At that time, she said she drank 2 shots of vodka. She also smoked marijuana about 2 days prior to admission. She works as a cook. ALLERGIES: SHE IS ALLERGIC TO MORPHINE. MEDICATIONS: At home, she is normally on Protonix and alprazolam. However, she was transferred to [facility] to continue on Zosyn 3.375 g IV every 6 hours, hydromorphone 2 mg IV every 3 hours, sodium chloride 100 mL per hour continuously. She is also on alcohol withdrawal protocol as well as banana bag on a daily basis. FH: Family History: Hypertension Social History: Smoke: <1 pack per day ALCOHOL: heavy Drugs: Marijuana ROS: per hpi VItals: Vitals: Vital Signs Date Time Temp Pulse Resp B/P (MAP) Pulse Ox O2 Delivery O2 Flow Rate FiO2 08/23/20 14:00 130 16 105/81 (89) 99 Nasal Cannula 1.0 08/23/20 11:14 99.9 99.9 Labs: Labs: Laboratory Tests Test 08/22/20 19:14 08/23/20 05:10 White Blood Count 6.3 x10^3/uL (4.0-11.0) 5.6 x10^3/uL (4.0-11.0) Red Blood Count 3.85 x10^6/uL (3.50-5.40) 3.18 x10^6/uL (3.50-5.40) Hemoglobin 10.4 g/dL (12.0-15.5) 8.7 g/dL (12.0-15.5) Hematocrit 33.3 % (36.0-47.0) 27.8 % (36.0-47.0) Mean Corpuscular Volume 87 fL (79-100) 88 fL (79-100) Mean Corpuscular Hemoglobin 27 pg (25-35) 27 pg (25-35) Mean Corpuscular Hemoglobin Concent 31 g/dL (31-37) 31 g/dL (31-37) Red Cell Distribution Width 23.0 % (11.5-14.5) 22.4 % (11.5-14.5) Platelet Count 386 x10^3/uL (140-400) 375 x10^3/uL (140-400) Neutrophils (%) (Auto) 65 % (31-73) 62 % (31-73) Lymphocytes (%) (Auto) 17 % (24-48) 19 % (24-48) Monocytes (%) (Auto) 16 % (0-9) 18 % (0-9) Eosinophils (%) (Auto) 1 % (0-3) 1 % (0-3) Basophils (%) (Auto) 1 % (0-3) 1 % (0-3) Neutrophils # (Auto) 4.1 x10^3/uL (1.8-7.7) 3.5 x10^3/uL (1.8-7.7) Lymphocytes # (Auto) 1.1 x10^3/uL (1.0-4.8) 1.1 x10^3/uL (1.0-4.8) Monocytes # (Auto) 1.0 x10^3/uL (0.0-1.1) 1.0 x10^3/uL (0.0-1.1) Eosinophils # (Auto) 0.1 x10^3/uL (0.0-0.7) 0.1 x10^3/uL (0.0-0.7) Basophils # (Auto) 0.0 x10^3/uL (0.0-0.2) 0.0 x10^3/uL (0.0-0.2) Platelet Estimate Adequate (ADEQUATE) Polychromasia Slight Hypochromasia Slight Anisocytosis Mod Ovalocytes Few Sodium Level 136 mmol/L (136-145) 137 mmol/L (136-145) Potassium Level 3.1 mmol/L (3.5-5.1) 2.9 mmol/L (3.5-5.1) Chloride Level 102 mmol/L (98-107) 104 mmol/L (98-107) Carbon Dioxide Level 24 mmol/L (21-32) 21 mmol/L (21-32) Anion Gap 10 (6-14) 12 (6-14) Blood Urea Nitrogen 4 mg/dL (7-20) 5 mg/dL (7-20) Creatinine 0.8 mg/dL (0.6-1.0) 0.6 mg/dL (0.6-1.0) Estimated GFR (Cockcroft-Gault) 97.7 136.1 BUN/Creatinine Ratio 5 (6-20) 8 (6-20) Glucose Level 91 mg/dL (70-99) 73 mg/dL (70-99) Lactic Acid Level 1.5 mmol/L (0.4-2.0) Calcium Level 8.0 mg/dL (8.5-10.1) 8.0 mg/dL (8.5-10.1) Total Bilirubin 0.6 mg/dL (0.2-1.0) 0.6 mg/dL (0.2-1.0) Aspartate Amino Transf (AST/SGOT) 17 U/L (15-37) 17 U/L (15-37) Alanine Aminotransferase (ALT/SGPT) 17 U/L (14-59) 15 U/L (14-59) Alkaline Phosphatase 57 U/L (46-116) 55 U/L (46-116) Total Protein 5.9 g/dL (6.4-8.2) 5.5 g/dL (6.4-8.2) Albumin 2.6 g/dL (3.4-5.0) 2.4 g/dL (3.4-5.0) Albumin/Globulin Ratio 0.8 (1.0-1.7) 0.8 (1.0-1.7) Lipase 768 U/L (73-393) 393 U/L (73-393) Imaging: Imaging: amination: CHEST AP ONLY History: Reason: worsening hypoxia / Spl. Instructions: / History: Comparison: 08/22/2020 CT chest abdomen and pelvis with contrast. Findings: AP portable upright frontal view of the chest was obtained. Limited pulmonary inflation. Right basilar ovoid calcified granuloma is present . Minimal left basilar discoid atelectasis. There is no pneumothorax. No pleural effusion is appreciated. No acute bone abnormality. IMPRESSION: Mild atelectasis at the left lung base. No new consolidation. Electronically signed by: Remy Madera MD (08/23/2020 9:16 AM) [id number] PE: HEAD, EYES, EARS, NOSE AND THROAT: Showed normocephalic, atraumatic. NECK: Supple. CARDIAC: Normal first and second heart sounds. No gallop or murmur. CHEST: Shows central trachea, equal bilateral expansion, air entry. I could not really appreciate any crepitation or rhonchi. ABDOMEN: Slightly distended, soft. Tenderness mostly in the epigastric area. There is no guarding or rigidity. No organomegaly. All hernial orifice intact. Bowel sounds normal. NEUROLOGIC: She is sleepy, but arousable. All cranial nerves intact. She moves extremities spontaneously. A/P: A/P: A 1) Pancreatitis with necrosis 2) Anemia P 1) Cont IVF and abx recs per ID 2) Pain control 3) EtOH cessation 4) Favor repeat imaging if sx worsen NGOZI MENDES MD Aug 23, 2020 14:46
[2020-08-23] MEDS: ENOXAPARIN 40 MG/0.4 ML SYRINGE. SQ SCH (16:07)
[2020-08-23] MEDS ORDERED: BISACODYL 10 MG SUPP.RECT. PR PRN (17:45)
[2020-08-24] MEDS: PIPERACILLIN/TAZOBACTAM 3.375 GM in IV NORMAL SALINE 50ML 50 ML IV SCH ×5 (01:35→23:50)
[2020-08-24] MEDS: HYDROmorphone 2 MG/ML VIAL IVP PRN ×5 (01:37→22:56)
[2020-08-24 03:06] VITALS: BP 139/99
[2020-08-24 06:37] VITALS: BP 112/74
[2020-08-24 08:09] LABS: BASO % 1 % (0-3); EOS % 0 % (0-3); HEMOGLOBIN 8.1 g/dL (12.0-15.5); LYMPH # 0.7 x10^3/uL (1.0-4.8); LYMPH % 12 % (24-48); MEAN CORPUSCULAR HEMOGLOBIN 27 pg (25-35); MEAN CORPUSCULAR HGB CONC 31 g/dL (31-37); MEAN CORPUSCULAR VOLUME 87 fL (79-100); MONO # 0.7 x10^3/uL (0.0-1.1); MONO % 13 % (0-9); NEUT # 4.1 x10^3/uL (1.8-7.7); NEUT % 74 % (31-73); PLATELET COUNT 433 x10^3/uL (140-400); RED BLOOD COUNT 2.98 x10^6/uL (3.50-5.40); RED CELL DISTRIBUTION WIDTH 21.9 % (11.5-14.5); WHITE BLOOD COUNT 5.6 x10^3/uL (4.0-11.0)
[2020-08-24 08:29] LABS: ALBUMIN 2.4 g/dL (3.4-5.0); ALBUMIN/GLOBULIN RATIO 0.7 (1.0-1.7); CALCIUM 8.2 mg/dL (8.5-10.1); CREATININE 0.7 mg/dL (0.6-1.0); GFR 113.9; POTASSIUM 3.4 mmol/L (3.5-5.1); TOTAL BILIRUBIN 0.7 mg/dL (0.2-1.0); TOTAL PROTEIN 5.8 g/dL (6.4-8.2)
[2020-08-24] MEDS: PANTOPRAZOLE IV PUSH 40 MG VIAL. IVP SCH (09:12)
[2020-08-24] MEDS: MULTIVIT INFUSN,ADULT 4,VIT K 10 ML, THIAMINE INJ 100 MG, FOLIC ACID INJ 1 MG in IV NOR... IV SCH (09:12)
[2020-08-24] MEDS: POTASSIUM CL 40MEQ IN 0.9%NACL 1,000 ML IV SCH ×3 (09:12→23:50)
--- NOTE | 2020-08-24 09:20 | PDOC ---
Infectious Disease Note Subjective: Subjective Patient is sleepy Got Ativan and pain medication earlier Patient complains of abdominal discomfort and some nausea Vital Signs: Vital Signs Vital Signs Date Time Temp Pulse Resp B/P (MAP) Pulse Ox O2 Delivery O2 Flow Rate FiO2 08/24/20 09:13 99 Room Air 08/24/20 06:37 98.7 122 18 112/74 (87) 1.0 98.7 Physical Exam: PHYSICAL EXAM GENERAL: Alert, oriented female, not in distress. HEENT: Anicteric, no pharyngeal exudate NECK: Supple, no JVP, no lymphadenopathy. LUNGS: Clear. HEART: S1, S2 regular. ABDOMEN: Soft, nontender, no organomegaly. EXTREMITIES: No edema or cyanosis. SKIN: Unremarkable. NEUROLOGIC: The patient is alert, awake though sleepy. No focal neurologic deficit. Medications: Inpatient Meds: Current Medications Medications (Trade) Dose Ordered Sig/Roger Start Time Stop Time Status Last Admin Dose Admin Bisacodyl (Dulcolax Supp) 10 mg PRN DAILY PRN 08/23/20 17:45 08/23/20 17:56 10 MG Enoxaparin Sodium (Lovenox 40mg Syringe) 40 mg Q24H 08/23/20 15:00 08/23/20 16:07 40 MG Haloperidol Lactate (Haldol Inj) 5 mg Q4HRS PRN 08/22/20 18:30 Hydromorphone HCl (Dilaudid) 2 mg PRN Q3HRS PRN 08/22/20 18:30 08/24/20 09:13 2 MG Labetalol HCl (Normodyne Iv Push) 10 mg PRN Q4HRS PRN 08/22/20 18:30 Lorazepam (Ativan Inj) 2 mg PRN Q4HRS PRN 08/22/20 19:15 08/24/20 09:13 2 MG Lorazepam (Ativan) 2 mg Q6H 08/22/20 19:00 08/24/20 01:01 Cancel Multivitamins 10 ml/Thiamine HCl 100 mg/Folic Acid 1 mg/Sodium Chloride 1,011.2 ml @ 100 mls/ hr DAILY 08/22/20 19:00 08/26/20 19:07 08/24/20 09:12 100 MLS/HR Nicotine (Nicoderm Cq 14mg) 1 patch PRN DAILY PRN 08/23/20 13:30 08/23/20 13:49 1 PATCH Ondansetron HCl (Zofran) 4 mg PRN Q6HRS PRN 08/22/20 18:30 Pantoprazole Sodium (PROTONIX VIAL for IV PUSH) 40 mg DAILYAC 08/23/20 07:30 08/24/20 09:12 40 MG Piperacillin Sod/ Tazobactam Sod 3.375 gm/Sodium Chloride 50 ml @ 100 mls/hr Q6HRS 08/22/20 19:00 08/24/20 05:45 100 MLS/HR Potassium Chloride/Sodium Chloride 1,000 ml @ 100 mls/hr Q10H 08/23/20 07:00 08/24/20 09:12 100 MLS/HR Sodium Chloride 1,000 ml @ 999 mls/hr 1X ONCE 08/22/20 18:30 08/22/20 19:30 DC 08/22/20 19:10 999 MLS/HR Labs: Lab Laboratory Tests Test 08/24/20 07:05 White Blood Count 5.6 x10^3/uL (4.0-11.0) Red Blood Count 2.98 x10^6/uL (3.50-5.40) Hemoglobin 8.1 g/dL (12.0-15.5) Hematocrit 26.0 % (36.0-47.0) Mean Corpuscular Volume 87 fL (79-100) Mean Corpuscular Hemoglobin 27 pg (25-35) Mean Corpuscular Hemoglobin Concent 31 g/dL (31-37) Red Cell Distribution Width 21.9 % (11.5-14.5) Platelet Count 433 x10^3/uL (140-400) Neutrophils (%) (Auto) 74 % (31-73) Lymphocytes (%) (Auto) 12 % (24-48) Monocytes (%) (Auto) 13 % (0-9) Eosinophils (%) (Auto) 0 % (0-3) Basophils (%) (Auto) 1 % (0-3) Neutrophils # (Auto) 4.1 x10^3/uL (1.8-7.7) Lymphocytes # (Auto) 0.7 x10^3/uL (1.0-4.8) Monocytes # (Auto) 0.7 x10^3/uL (0.0-1.1) Eosinophils # (Auto) 0.0 x10^3/uL (0.0-0.7) Basophils # (Auto) 0.0 x10^3/uL (0.0-0.2) Sodium Level 139 mmol/L (136-145) Potassium Level 3.4 mmol/L (3.5-5.1) Chloride Level 105 mmol/L (98-107) Carbon Dioxide Level 20 mmol/L (21-32) Anion Gap 14 (6-14) Blood Urea Nitrogen 3 mg/dL (7-20) Creatinine 0.7 mg/dL (0.6-1.0) Estimated GFR (Cockcroft-Gault) 113.9 BUN/Creatinine Ratio 4 (6-20) Glucose Level 69 mg/dL (70-99) Calcium Level 8.2 mg/dL (8.5-10.1) Total Bilirubin 0.7 mg/dL (0.2-1.0) Aspartate Amino Transf (AST/SGOT) 18 U/L (15-37) Alanine Aminotransferase (ALT/SGPT) 16 U/L (14-59) Alkaline Phosphatase 61 U/L (46-116) Total Protein 5.8 g/dL (6.4-8.2) Albumin 2.4 g/dL (3.4-5.0) Albumin/Globulin Ratio 0.7 (1.0-1.7) Lipase 114 U/L (73-393) Objective: Assessment: 1. Acute pancreatitis with some necrosis. 2. Fever. 3. Alcoholism. 4. Gastroesophageal reflux disease. Plan: Plan of Care Continue Zosyn. Continue supportive care follow Cultures Maintain aspiration precaution Monitor labs Discussed with nursing DAVID AMIN MD Aug 24, 2020 09:20
--- NOTE | 2020-08-24 09:56 | NUR ---
SW following. Discussed with RN, pt from home, PAT consulted for ETOH. Pt not stable for discharge home today. SW will continue to follow.
--- NOTE | 2020-08-24 09:59 | PDOC ---
Date of Service: DATE: 08/24/20 TIME: 09:52 Subjective: Subjective: Pain all over abdomen around to back. Wants IV site changed because the tape is irritating. Asks for Ensure - asks several times to drink - "can I have a stupid big cup of ice water?" Passed some gas after suppository and thinks that helped. Objective: Vital Signs: Vital Signs Date Time Temp Pulse Resp B/P (MAP) Pulse Ox O2 Delivery O2 Flow Rate FiO2 08/24/20 09:43 99 Nasal Cannula 1.0 08/24/20 06:37 98.7 122 18 112/74 (87) 98.7 Labs: Laboratory Tests Test 08/24/20 07:05 White Blood Count 5.6 x10^3/uL Red Blood Count 2.98 x10^6/uL Hemoglobin 8.1 g/dL Hematocrit 26.0 % Mean Corpuscular Volume 87 fL Mean Corpuscular Hemoglobin 27 pg Mean Corpuscular Hemoglobin Concent 31 g/dL Red Cell Distribution Width 21.9 % Platelet Count 433 x10^3/uL Neutrophils (%) (Auto) 74 % Lymphocytes (%) (Auto) 12 % Monocytes (%) (Auto) 13 % Eosinophils (%) (Auto) 0 % Basophils (%) (Auto) 1 % Neutrophils # (Auto) 4.1 x10^3/uL Lymphocytes # (Auto) 0.7 x10^3/uL Monocytes # (Auto) 0.7 x10^3/uL Eosinophils # (Auto) 0.0 x10^3/uL Basophils # (Auto) 0.0 x10^3/uL Sodium Level 139 mmol/L Potassium Level 3.4 mmol/L Chloride Level 105 mmol/L Carbon Dioxide Level 20 mmol/L Anion Gap 14 Blood Urea Nitrogen 3 mg/dL Creatinine 0.7 mg/dL Estimated GFR (Cockcroft-Gault) 113.9 BUN/Creatinine Ratio 4 Glucose Level 69 mg/dL Calcium Level 8.2 mg/dL Total Bilirubin 0.7 mg/dL Aspartate Amino Transf (AST/SGOT) 18 U/L Alanine Aminotransferase (ALT/SGPT) 16 U/L Alkaline Phosphatase 61 U/L Total Protein 5.8 g/dL Albumin 2.4 g/dL Albumin/Globulin Ratio 0.7 Lipase 114 U/L PE: GEN: crying LUNGS: diminished HEART: tachycardic ABD: quiet, diffusely tender though worst in upper abdomen around right flank NEURO/PSYCH: A & O 3 A/P: Recurrent pancreatitis w/ concern for necrosis - suspect related to alcohol Fever - better Anemia - stable Hypokalemia - better -- She is tearful - gave okay an occasional SMALL sip of water. Defer her concerns re: IV placement to primary. Justicifation of Admission Dx: Justifications for Admission: Justification of Admission Dx: Yes LUIS SAPRROW Aug 24, 2020 09:59
[2020-08-24 11:00] VITALS: BP 122/93
--- NOTE | 2020-08-24 12:21 | PN ---
DATE: 08/24/2020 SUBJECTIVE: The patient is resting, slightly propped up in bed, in no apparent respiratory distress. She continued to complain of pain, although she is definitely more awake, alert, has been up and about, walking around. She was seen by the cloth checker who allowed her to have sips of water. PHYSICAL EXAMINATION: GENERAL: When I examined her, she was pale, cachectic, but no jaundice, cyanosis or thyromegaly. No jugular venous distention. No lower limb edema. VITAL SIGNS: Heart rate continued to be elevated, although less than before with a heart rate of about 113, blood pressure 112/74, temperature was 98.7, respiratory rate was 18 and oxygen saturation was 99% on 1 liter of oxygen. HEAD, EYES, EARS, NOSE AND THROAT: Showed normocephalic, atraumatic. NECK: Supple. HEART: Showed normal first and second heart sounds. No gallop, rub or murmur. CHEST: Clear to auscultation. No crepitation or rhonchi. ABDOMEN: Distended, soft, nontender. NEUROLOGIC: She is awake, alert, responding appropriately. All cranial nerves intact. She ambulates without assistance or assistive devices. Her intake was 1100, no output was recorded. LABORATORY DATA: Her lab work this morning showed a serum sodium 139, potassium 3.4, chloride 105, bicarbonate 20, anion gap of 14, BUN 3, creatinine 0.7, estimated GFR was 113 mL per minute. Her glucose was 69, calcium was 8.2. Total bilirubin, AST, ALT, alkaline phosphatase were normal. Total protein was 5.8, albumin was 2.4. Her lipase was 114. Her white cell count was 5600, hemoglobin 8, hematocrit 26, MCV 87 and platelet count of 433,000. ASSESSMENT: 1. Acute alcohol-induced necrotizing pancreatitis. 2. Systemic inflammatory response syndrome. The patient has tachycardia and fever, although the blood culture is still negative. 3. Normochromic normocytic anemia. 4. She has also chronic alcoholism, previous episode of alcohol-induced pancreatitis. 5. Nicotine addiction. 6. Marijuana abuse. PLAN: To continue with IV antibiotic. Continue with pain management. She was started on sips of water. We will advance her diet once her pain is much less. PATRIA YANCEY MD DR: Thiago JOB#: [id number] / [id number]
--- NOTE | 2020-08-24 13:15 | NUR ---
SS following for discharge planning. SS reviewed pt chart and discussed with Pat TA and pt's RN. Pt is from home with family and is currently requiring oxygen. Pt on IV Zosyn and currently NPO. PT/OT ordered. PAT team consulted for ETOH and Marijuana use. Wilfrido from PAT team met with pt and recommended psych consult. Pt has history at the [facility] in [place] and is to follow up with the [facility] and her PCP. Pt given resources for [facility]. Pt's RN notified. SS will continue to follow for discharge planning.
[2020-08-24] MEDS: ENOXAPARIN 40 MG/0.4 ML SYRINGE. SQ SCH (14:35)
[2020-08-24 15:00] VITALS: BP 133/101
[2020-08-24 19:35] VITALS: BP 147/101
[2020-08-24 20:10] LABS: BASE EXCESS ABG -8 mmol/L (-3-3); HCO3 ABG 16 mmol/L (21-28); PCO2 ABG 28 mmHg (35-46); PO2 ABG 54 mmHg (85-108); SAT O2 ABG 85 % (92-99)
[2020-08-24 20:14] LABS: FIO2 ABG 100
[2020-08-24 20:35] LABS: BASO % 1 % (0-3); EOS # 0.1 x10^3/uL (0.0-0.7); EOS % 1 % (0-3); HEMATOCRIT 28.5 % (36.0-47.0); LYMPH # 1.1 x10^3/uL (1.0-4.8); LYMPH % 18 % (24-48); MEAN CORPUSCULAR HEMOGLOBIN 28 pg (25-35); MEAN CORPUSCULAR HGB CONC 32 g/dL (31-37); MEAN CORPUSCULAR VOLUME 88 fL (79-100); MONO # 0.7 x10^3/uL (0.0-1.1); MONO % 12 % (0-9); NEUT # 4.3 x10^3/uL (1.8-7.7); NEUT % 69 % (31-73); PLATELET COUNT 466 x10^3/uL (140-400); RED BLOOD COUNT 3.23 x10^6/uL (3.50-5.40); RED CELL DISTRIBUTION WIDTH 22.2 % (11.5-14.5); WHITE BLOOD COUNT 6.3 x10^3/uL (4.0-11.0)
[2020-08-24 20:47] LABS: CALCIUM 8.3 mg/dL (8.5-10.1); CREATININE 0.7 mg/dL (0.6-1.0); GFR 113.9; POTASSIUM 3.9 mmol/L (3.5-5.1)
[2020-08-24 20:53] LABS: ALBUMIN 2.7 g/dL (3.4-5.0); ALBUMIN/GLOBULIN RATIO 0.9 (1.0-1.7); TOTAL BILIRUBIN 0.8 mg/dL (0.2-1.0); TOTAL PROTEIN 5.8 g/dL (6.4-8.2)
[2020-08-24] MEDS ORDERED: CONTRAST GIVEN. MC PRN (21:15)
[2020-08-24] MEDS ORDERED: IOHEXOL 350 MG/ML 100 ML VIAL. IV ONE (21:30)
--- NOTE | 2020-08-24 21:52 | RAD ---
Exam: Chest one view INDICATION: Hypoxia TECHNIQUE: Frontal view of the chest Comparisons: 08/23/2020 FINDINGS: The cardiomediastinal silhouette and pulmonary vessels are within normal limits. Patchy bibasilar airspace disease. Trace bilateral pleural effusions. IMPRESSION: Patchy bibasilar airspace disease with trace bilateral pleural effusions. Electronically signed by: oLri Carranza MD (08/24/2020 9:49 PM) [facility]
[2020-08-24 22:01] LABS: U PREG PATIENT NEGATIVE (NEG)
[2020-08-24] MEDS ORDERED: ACETAMINOPHEN 325 MG TABLET. PO PRN (22:15)
--- NOTE | 2020-08-24 22:51 | RAD ---
Exam: CT of chest with contrast INDICATION: Acute hypoxia TECHNIQUE: Sequential axial images through the chest obtained following the administration of 90 mL of Omni 350 IV contrast. Sagittal and coronal reformatted images were reconstructed from the axial data and reviewed. Comparisons: Chest x-ray same day FINDINGS: Visualized portions of the thyroid are unremarkable. No enlarged mediastinal lymph nodes are identified. Heart size is normal. No pericardial effusion. Thoracic aorta has a normal course and caliber. Pulmonary artery is not enlarged. No pulmonary embolus identified within the main, lobar or segmental pulmonary arteries. Airways are patent. There is patchy consolidative changes in the lower lobes bilaterally. On the left lower lobe. Mild intralobular septal thickening noted probably at the lung apices. No pneumothorax. Small bilateral pleural effusions. Visualized upper abdomen is unremarkable. No suspicious osseous lesions or acute fractures. IMPRESSION: 1. No pulmonary embolus identified within the main, lobar or segmental pulmonary arteries. 2. Patchy consolidative changes at the lung bases bilaterally. Favored to be infectious or inflammatory in etiology. 3. Small bilateral pleural effusion. Exposure: One or more of the following in the visualized dose reduction techniques were utilized for this examination: 1. Automated exposure control 2. Adjustment of the MA and/or KV according to patient size 3. Use of iterative of reconstructive technique Electronically signed by: Lori Carranza MD (08/24/2020 10:48 PM) [facility]
[2020-08-24 23:12] VITALS: BP 126/85
[2020-08-25] VITALS (7 sets, daily range): BP systolic 111–135; BP diastolic 68–101
[2020-08-25] MEDS: HYDROmorphone 2 MG/ML VIAL IVP PRN ×2 (02:57→09:04)
--- NOTE | 2020-08-25 03:13 | NUR ---
At 1930, pt discovered to be on room air, and O2 sats in the low 70's, patient experiencing auditory hallucinations, although patient is alert and oriented x4 and was found ambulating ad margo to bathroom. Venti mask at 40, then 50% FiO2 applied as SpO2 slowly climbed into the high 80's, see vitals spreadsheet. Non-rebreather at 100% FiO2 applied to achieve sats above 90%. A fellow staff nurse spoke with Dr. Schulz via phone to apprise him of the situation. Auditory hallucinations ceased and remained a/o x4 throughout period of hypoxia. Bed alarm applied and pt advised of O2 status and orders of CTA chest and CXR. Lab for urine test ordered for CTA. Pt able to return to nasal cannula at 8L to keep O2 sats above 95% and was able to tolerate 8LNC for transport to CT with staff present, monitoring. At the time of this writing, patient remains A/O x4, does complain of 8/10 abd pain, dilaudid given per DEC, and O2 sats remain above 95% on 8LNC. Pt remains tachy and spiked a fever at 100.3 prior to Tylenol given per DEC.
[2020-08-25 05:29] LABS: BASO % 1 % (0-3); EOS # 0.1 x10^3/uL (0.0-0.7); EOS % 1 % (0-3); HEMATOCRIT 25.7 % (36.0-47.0); HEMOGLOBIN 8.2 g/dL (12.0-15.5); LYMPH # 1.1 x10^3/uL (1.0-4.8); LYMPH % 20 % (24-48); MEAN CORPUSCULAR HEMOGLOBIN 28 pg (25-35); MEAN CORPUSCULAR HGB CONC 32 g/dL (31-37); MEAN CORPUSCULAR VOLUME 88 fL (79-100); MONO # 0.8 x10^3/uL (0.0-1.1); MONO % 14 % (0-9); NEUT # 3.5 x10^3/uL (1.8-7.7); NEUT % 65 % (31-73); PLATELET COUNT 443 x10^3/uL (140-400); RED BLOOD COUNT 2.92 x10^6/uL (3.50-5.40); RED CELL DISTRIBUTION WIDTH 21.9 % (11.5-14.5); WHITE BLOOD COUNT 5.4 x10^3/uL (4.0-11.0)
[2020-08-25] MEDS: PIPERACILLIN/TAZOBACTAM 3.375 GM in IV NORMAL SALINE 50ML 50 ML IV SCH (05:33)
[2020-08-25 05:54] LABS: ALBUMIN 2.6 g/dL (3.4-5.0); CALCIUM 8.1 mg/dL (8.5-10.1); CREATININE 0.6 mg/dL (0.6-1.0); GFR 136.1; POTASSIUM 4.3 mmol/L (3.5-5.1); TOTAL BILIRUBIN 0.6 mg/dL (0.2-1.0); TOTAL PROTEIN 5.3 g/dL (6.4-8.2)
--- NOTE | 2020-08-25 06:33 | NUR ---
Pt is requesting COVID19 test.
[2020-08-25] MEDS: MULTIVIT INFUSN,ADULT 4,VIT K 10 ML, THIAMINE INJ 100 MG, FOLIC ACID INJ 1 MG in IV NOR... IV SCH (09:00)
[2020-08-25] MEDS: NICOTINE 14MG PATCH. TD PRN (09:03)
[2020-08-25] MEDS: PANTOPRAZOLE IV PUSH 40 MG VIAL. IVP SCH (09:04)
--- NOTE | 2020-08-25 09:58 | PDOC ---
Infectious Disease Note Subjective: Subjective Patient feels better Less nausea Abdominal pain is under control No diarrhea or fever Vital Signs: Vital Signs Vital Signs Date Time Temp Pulse Resp B/P (MAP) Pulse Ox O2 Delivery O2 Flow Rate FiO2 08/25/20 09:18 98.0 99 14 114/68 (83) 100 Room Air 98.0 08/25/20 09:04 4.0 Physical Exam: PHYSICAL EXAM GENERAL: Alert, oriented female, not in distress. HEENT: Anicteric, no pharyngeal exudate NECK: Supple, no JVP, no lymphadenopathy. LUNGS: Clear. HEART: S1, S2 regular. ABDOMEN: Soft, nontender, no organomegaly. EXTREMITIES: No edema or cyanosis. SKIN: Unremarkable. NEUROLOGIC: The patient is alert, awake though sleepy. No focal neurologic deficit. Medications: Inpatient Meds: Current Medications Medications (Trade) Dose Ordered Sig/Roger Start Time Stop Time Status Last Admin Dose Admin Acetaminophen (Tylenol) 650 mg PRN Q6HRS PRN 08/24/20 22:15 08/24/20 22:55 650 MG Bisacodyl (Dulcolax Supp) 10 mg PRN DAILY PRN 08/23/20 17:45 08/23/20 17:56 10 MG Enoxaparin Sodium (Lovenox 40mg Syringe) 40 mg Q24H 08/23/20 15:00 08/24/20 14:35 40 MG Haloperidol Lactate (Haldol Inj) 5 mg Q4HRS PRN 08/22/20 18:30 Hydromorphone HCl (Dilaudid) 2 mg PRN Q3HRS PRN 08/22/20 18:30 08/25/20 09:27 DC 08/25/20 09:04 2 MG Info (CONTRAST GIVEN -- Rx MONITORING) 1 each PRN DAILY PRN 08/24/20 21:15 08/26/20 21:14 Iohexol (Omnipaque 350 Mg/ml) 90 ml 1X ONCE 08/24/20 21:30 08/24/20 21:31 DC 08/24/20 22:29 90 ML Labetalol HCl (Normodyne Iv Push) 10 mg PRN Q4HRS PRN 08/22/20 18:30 Lorazepam (Ativan Inj) 2 mg PRN Q4HRS PRN 08/22/20 19:15 08/25/20 05:38 2 MG Lorazepam (Ativan) 2 mg Q6H 08/22/20 19:00 08/24/20 01:01 Cancel Multivitamins 10 ml/Thiamine HCl 100 mg/Folic Acid 1 mg/Sodium Chloride 1,011.2 ml @ 100 mls/ hr DAILY 08/22/20 19:00 08/25/20 09:30 DC 08/24/20 09:12 100 MLS/HR Nicotine (Nicoderm Cq 14mg) 1 patch PRN DAILY PRN 08/23/20 13:30 08/25/20 09:03 1 PATCH Ondansetron HCl (Zofran) 4 mg PRN Q6HRS PRN 08/22/20 18:30 Pantoprazole Sodium (PROTONIX VIAL for IV PUSH) 40 mg DAILYAC 08/23/20 07:30 08/25/20 09:04 40 MG Piperacillin Sod/ Tazobactam Sod 3.375 gm/Sodium Chloride 50 ml @ 100 mls/hr Q6HRS 08/22/20 19:00 08/25/20 09:27 DC 08/25/20 05:33 100 MLS/HR Potassium Chloride/Sodium Chloride 1,000 ml @ 100 mls/hr Q10H 08/23/20 07:00 08/25/20 09:27 DC 08/24/20 23:50 100 MLS/HR Sodium Chloride 1,000 ml @ 999 mls/hr 1X ONCE 08/22/20 18:30 08/22/20 19:30 DC 08/22/20 19:10 999 MLS/HR Labs: Lab Laboratory Tests Test 08/24/20 20:10 08/24/20 20:28 08/24/20 20:40 08/25/20 04:36 O2 Saturation 85 % (92-99) Arterial Blood pH 7.38 (7.35-7.45) Arterial Blood pCO2 at Patient Temp 28 mmHg (35-46) Arterial Blood pO2 at Patient Temp 54 mmHg (85-108) Arterial Blood HCO3 16 mmol/L (21-28) Arterial Blood Base Excess -8 mmol/L (-3-3) FiO2 100 White Blood Count 6.3 x10^3/uL (4.0-11.0) 5.4 x10^3/uL (4.0-11.0) Red Blood Count 3.23 x10^6/uL (3.50-5.40) 2.92 x10^6/uL (3.50-5.40) Hemoglobin 9.0 g/dL (12.0-15.5) 8.2 g/dL (12.0-15.5) Hematocrit 28.5 % (36.0-47.0) 25.7 % (36.0-47.0) Mean Corpuscular Volume 88 fL (79-100) 88 fL (79-100) Mean Corpuscular Hemoglobin 28 pg (25-35) 28 pg (25-35) Mean Corpuscular Hemoglobin Concent 32 g/dL (31-37) 32 g/dL (31-37) Red Cell Distribution Width 22.2 % (11.5-14.5) 21.9 % (11.5-14.5) Platelet Count 466 x10^3/uL (140-400) 443 x10^3/uL (140-400) Neutrophils (%) (Auto) 69 % (31-73) 65 % (31-73) Lymphocytes (%) (Auto) 18 % (24-48) 20 % (24-48) Monocytes (%) (Auto) 12 % (0-9) 14 % (0-9) Eosinophils (%) (Auto) 1 % (0-3) 1 % (0-3) Basophils (%) (Auto) 1 % (0-3) 1 % (0-3) Neutrophils # (Auto) 4.3 x10^3/uL (1.8-7.7) 3.5 x10^3/uL (1.8-7.7) Lymphocytes # (Auto) 1.1 x10^3/uL (1.0-4.8) 1.1 x10^3/uL (1.0-4.8) Monocytes # (Auto) 0.7 x10^3/uL (0.0-1.1) 0.8 x10^3/uL (0.0-1.1) Eosinophils # (Auto) 0.1 x10^3/uL (0.0-0.7) 0.1 x10^3/uL (0.0-0.7) Basophils # (Auto) 0.0 x10^3/uL (0.0-0.2) 0.0 x10^3/uL (0.0-0.2) D-Dimer (Simi) 11.94 ug/mlFEU (0.00-0.50) Sodium Level 140 mmol/L (136-145) 137 mmol/L (136-145) Potassium Level 3.9 mmol/L (3.5-5.1) 4.3 mmol/L (3.5-5.1) Chloride Level 106 mmol/L (98-107) 105 mmol/L (98-107) Carbon Dioxide Level 19 mmol/L (21-32) 18 mmol/L (21-32) Anion Gap 15 (6-14) 14 (6-14) Blood Urea Nitrogen 3 mg/dL (7-20) 2 mg/dL (7-20) Creatinine 0.7 mg/dL (0.6-1.0) 0.6 mg/dL (0.6-1.0) Estimated GFR (Cockcroft-Gault) 113.9 136.1 BUN/Creatinine Ratio 4 (6-20) 3 (6-20) Glucose Level 76 mg/dL (70-99) 66 mg/dL (70-99) Calcium Level 8.3 mg/dL (8.5-10.1) 8.1 mg/dL (8.5-10.1) Total Bilirubin 0.8 mg/dL (0.2-1.0) 0.6 mg/dL (0.2-1.0) Aspartate Amino Transf (AST/SGOT) 25 U/L (15-37) 23 U/L (15-37) Alanine Aminotransferase (ALT/SGPT) 18 U/L (14-59) 16 U/L (14-59) Alkaline Phosphatase 69 U/L (46-116) 65 U/L (46-116) Total Protein 5.8 g/dL (6.4-8.2) 5.3 g/dL (6.4-8.2) Albumin 2.7 g/dL (3.4-5.0) 2.6 g/dL (3.4-5.0) Albumin/Globulin Ratio 0.9 (1.0-1.7) 1.0 (1.0-1.7) Urine Test Negative (NEG) Lipase 110 U/L (73-393) Objective: Assessment: 1. Acute pancreatitis with some necrosis. 2. Fever. Improving 3. Alcoholism. 4. Gastroesophageal reflux disease. Plan: Plan of Care Continue Zosyn. Continue supportive care follow Cultures Maintain aspiration precaution Monitor labs Discussed with nursing DAVID AMIN MD Aug 25, 2020 09:58
--- NOTE | 2020-08-25 10:15 | PN ---
DATE: 08/25/2020 SUBJECTIVE: The patient is resting, slightly propped up in bed, sleeping comfortably. She had multiple episodes of hypoxemia last night and we did a chest x-ray as well as CT angio as the D-dimer was high. Her CT angio of the chest showed no evidence of pulmonary emboli; however, she does have patchy consolidative changes at the lung bases bilaterally, favored to be infectious and inflammatory in etiology. Small bilateral pleural effusions. When I saw her this morning, she was resting slightly propped up in bed, in no apparent respiratory distress. Pale, no jaundice or cyanosis. No lymphadenopathy, no thyromegaly. No jugular venous distention. No limb edema. PHYSICAL EXAMINATION: VITAL SIGNS: Her heart rate was 99, blood pressure was 114/68, temperature was 98, respiratory rate was 14 and oxygen saturation was 100% on 4 L of oxygen. HEENT: Showed normocephalic, atraumatic. NECK: Supple. HEART: Normal first and second sounds. No gallop or murmur. CHEST: Clear to auscultation. No crepitation or rhonchi. ABDOMEN: Distended, scaphoid, soft, nontender. NEUROLOGIC: She is very sleepy, but arousable. She moves all extremities without difficulty. She ambulates without assistance or assistive devices. Her intake was 1880, no output was recorded. LABORATORY DATA: Her lab work this morning showed a white cell count 5400, hemoglobin 8.2, hematocrit was 25.7, MCV 88 and platelet count of 443,000. Her chemistry showed a serum sodium 137, potassium 4.3, chloride 105, bicarbonate 18, anion gap of 14, BUN 2, creatinine 0.6, estimated GFR was 136 mL per minute. Her glucose was 66, calcium was 8.1. Total bilirubin, AST, ALT, alkaline phosphatase were normal. Total protein 5.3, albumin was 2.6 and serum lipase was 110. Her D-dimer was high at 11.94. Urinalysis was essentially unremarkable and arterial blood gases last night showed a pH of 7.38, a pCO2 of 28, a pO2 of 54, bicarbonate of 16, and oxygen saturation was 85% on FiO2 of 100%. ASSESSMENT: 1. Acute alcohol-induced necrotizing pancreatitis. 2. Systemic inflammatory response syndrome. The patient has tachycardia and fever, although blood cultures are still negative. 3. Normochromic normocytic anemia. 4. She also has chronic alcoholism, previous episodes of alcohol-induced pancreatitis. 5. Nicotine addiction. 6. Marijuana abuse. 7. Acute hypoxic respiratory failure, likely drug induced. PLAN: My plan is to discontinue IV fluid, discontinue the banana bag, discontinue morphine, advance her diet. Start PT, OT. If she is fine, she can be discharged home today. PATRIA YANCEY MD DR: SERA/rita JOB#: [id number] / [id number]
--- NOTE | 2020-08-25 11:25 | PDOC ---
Date of Service: DATE: 08/25/20 TIME: 11:22 Subjective: Subjective: Still has pain but might be better. Eating full liquids. Asks for a COVID test before she goes back to work at a [employer]. Objective: Objective: Nurse says primary ordered advance diet as tolerating - currently w/ full liq uids. Vital Signs: Vital Signs Date Time Temp Pulse Resp B/P (MAP) Pulse Ox O2 Delivery O2 Flow Rate FiO2 08/25/20 09:18 98.0 99 14 114/68 (83) 100 Room Air 98.0 08/25/20 09:04 4.0 Labs: Laboratory Tests Test 08/24/20 20:10 08/24/20 20:28 08/24/20 20:40 08/25/20 04:36 O2 Saturation 85 % Arterial Blood pH 7.38 Arterial Blood pCO2 at Patient Temp 28 mmHg Arterial Blood pO2 at Patient Temp 54 mmHg Arterial Blood HCO3 16 mmol/L Arterial Blood Base Excess -8 mmol/L FiO2 100 White Blood Count 6.3 x10^3/uL 5.4 x10^3/uL Red Blood Count 3.23 x10^6/uL 2.92 x10^6/uL Hemoglobin 9.0 g/dL 8.2 g/dL Hematocrit 28.5 % 25.7 % Mean Corpuscular Volume 88 fL 88 fL Mean Corpuscular Hemoglobin 28 pg 28 pg Mean Corpuscular Hemoglobin Concent 32 g/dL 32 g/dL Red Cell Distribution Width 22.2 % 21.9 % Platelet Count 466 x10^3/uL 443 x10^3/uL Neutrophils (%) (Auto) 69 % 65 % Lymphocytes (%) (Auto) 18 % 20 % Monocytes (%) (Auto) 12 % 14 % Eosinophils (%) (Auto) 1 % 1 % Basophils (%) (Auto) 1 % 1 % Neutrophils # (Auto) 4.3 x10^3/uL 3.5 x10^3/uL Lymphocytes # (Auto) 1.1 x10^3/uL 1.1 x10^3/uL Monocytes # (Auto) 0.7 x10^3/uL 0.8 x10^3/uL Eosinophils # (Auto) 0.1 x10^3/uL 0.1 x10^3/uL Basophils # (Auto) 0.0 x10^3/uL 0.0 x10^3/uL D-Dimer (Simi) 11.94 ug/mlFEU Sodium Level 140 mmol/L 137 mmol/L Potassium Level 3.9 mmol/L 4.3 mmol/L Chloride Level 106 mmol/L 105 mmol/L Carbon Dioxide Level 19 mmol/L 18 mmol/L Anion Gap 15 14 Blood Urea Nitrogen 3 mg/dL 2 mg/dL Creatinine 0.7 mg/dL 0.6 mg/dL Estimated GFR (Cockcroft-Gault) 113.9 136.1 BUN/Creatinine Ratio 4 3 Glucose Level 76 mg/dL 66 mg/dL Calcium Level 8.3 mg/dL 8.1 mg/dL Total Bilirubin 0.8 mg/dL 0.6 mg/dL Aspartate Amino Transf (AST/SGOT) 25 U/L 23 U/L Alanine Aminotransferase (ALT/SGPT) 18 U/L 16 U/L Alkaline Phosphatase 69 U/L 65 U/L Total Protein 5.8 g/dL 5.3 g/dL Albumin 2.7 g/dL 2.6 g/dL Albumin/Globulin Ratio 0.9 1.0 Urine Test Negative Lipase 110 U/L Imaging: Chest CTA IMPRESSION: 1. No pulmonary embolus identified within the main, lobar or segmental pulmonary arteries. 2. Patchy consolidative changes at the lung bases bilaterally. Favored to be infectious or inflammatory in etiology. 3. Small bilateral pleural effusion. PE: GEN: NAD LUNGS: diminished, NC 4L HEART: borderline tachycardic ABD: quiet, some distention, glory hole tender epigastrium to RUQ NEURO/PSYCH: A & O 3 A/P: Recurrent alcoholic pancreatitis Elevated D-dimer Anemia - stable -- Eating per primary. Justicifation of Admission Dx: Justifications for Admission: Justification of Admission Dx: Yes LUIS SPARROW Aug 25, 2020 11:25
--- NOTE | 2020-08-25 12:44 | NUR ---
SS following up with discharge planning. SS reviewed pt chart and discussed with pt RN. Pt is currently on room air. COVID19 test pending. Advancing diet as tolerated. No PT/OT needs. Discharge plan is home when medically ready. SS will continue to follow for discharge planning.
[2020-08-25] MEDS: oxyCODONE IR 5 MG TABLET PO PRN ×2 (13:34→22:55)
[2020-08-25] MEDS: ENOXAPARIN 40 MG/0.4 ML SYRINGE. SQ SCH (15:27)
[2020-08-25] MEDS: AMOXICILLIN/K CLAV 875/125MG TABLET. PO SCH (20:50)
--- NOTE | 2020-08-25 23:00 | NUR ---
this evening pt hr went into 130's she is worrying about her family. earlier i took her to the door to see her 6 yo. they waved and blew kisses. trying to get pt to think good thoughts. habe given her meds. and labetolol. lcrn
[2020-08-26 03:20] VITALS: BP 124/83
[2020-08-26 04:32] LABS: BASO # 0.1 x10^3/uL (0.0-0.2); BASO % 2 % (0-3); EOS # 0.1 x10^3/uL (0.0-0.7); EOS % 1 % (0-3); HEMATOCRIT 28.4 % (36.0-47.0); HEMOGLOBIN 9.1 g/dL (12.0-15.5); LYMPH # 1.3 x10^3/uL (1.0-4.8); LYMPH % 25 % (24-48); MEAN CORPUSCULAR HEMOGLOBIN 27 pg (25-35); MEAN CORPUSCULAR HGB CONC 32 g/dL (31-37); MEAN CORPUSCULAR VOLUME 86 fL (79-100); MONO # 0.7 x10^3/uL (0.0-1.1); MONO % 13 % (0-9); NEUT # 3.1 x10^3/uL (1.8-7.7); NEUT % 59 % (31-73); PLATELET COUNT 538 x10^3/uL (140-400); RED BLOOD COUNT 3.31 x10^6/uL (3.50-5.40); RED CELL DISTRIBUTION WIDTH 22.3 % (11.5-14.5); WHITE BLOOD COUNT 5.2 x10^3/uL (4.0-11.0)
[2020-08-26 04:52] LABS: ALBUMIN 2.8 g/dL (3.4-5.0); ALBUMIN/GLOBULIN RATIO 0.7 (1.0-1.7); CALCIUM 8.9 mg/dL (8.5-10.1); CREATININE 0.8 mg/dL (0.6-1.0); GFR 97.7; POTASSIUM 3.1 mmol/L (3.5-5.1); TOTAL BILIRUBIN 0.4 mg/dL (0.2-1.0); TOTAL PROTEIN 6.9 g/dL (6.4-8.2)
[2020-08-26 07:00] VITALS: BP 116/85
[2020-08-26] MEDS: PANTOPRAZOLE IV PUSH 40 MG VIAL. IVP SCH (08:31)
[2020-08-26] MEDS: AMOXICILLIN/K CLAV 875/125MG TABLET. PO SCH (08:31)
[2020-08-26] MEDS ORDERED: POTASSIUM CHLORIDE 20 MEQ TABLET.ER. PO ONE (09:15)
[2020-08-26] MEDS ORDERED: OXYC5CAP PO (09:19)
[2020-08-26] MEDS ORDERED: PANT40TA77 PO (09:19)
[2020-08-26] MEDS ORDERED: AMOX1TAB61 PO (09:19)
--- NOTE | 2020-08-26 09:35 | DS ---
DATE OF DISCHARGE: 08/26/2020 HISTORY AND HOSPITAL COURSE: The patient is a 39-year-old female patient who was originally admitted to [facility] with acute alcohol-induced pancreatitis. Initially, the CT scan was unremarkable; however, her symptoms worsened. Her serum lipase has dramatically risen and a repeat CT scan showed she has evidence of necrotizing pancreatitis. She also developed systemic inflammatory response syndrome with marked tachycardia, fever and therefore, she was transferred to [facility] where we consulted the commercial project manager as well as Infectious Disease specialist. We continued IV fluid, banana bag and alcohol withdrawal protocol as well as IV antibiotic and she did actually very well. PHYSICAL EXAMINATION: GENERAL: When I saw her today, she looked pale, somewhat cachectic, but no jaundice, cyanosis or thyromegaly. No jugular venous distention or limb edema. VITAL SIGNS: Her heart rate was 111, blood pressure was 124/83, temperature was 98.4, respiratory rate was 18, and oxygen saturation was 96% on room air. HEAD, EYES, EARS, NOSE AND THROAT: Showed normocephalic, atraumatic. NECK: Supple. HEART: Showed normal first and second heart sounds. No gallop or murmur. CHEST: Clear to auscultation. No crepitation or rhonchi. ABDOMEN: Distended, soft, and nontender. NEUROLOGIC: She was awake, alert, responding appropriately. All cranial nerves intact. She moves extremities without difficulty. She ambulates without assistance or assistive devices. Her intake was 1540, no output was recorded. LABORATORY DATA: Her lab work this morning showed a white cell count 5300, hemoglobin 9, hematocrit 28, MCV 86, and platelet count of 538,000. Her serum sodium was 137, potassium 3.1 for which the patient was given 40 mEq of potassium, her chloride 102, bicarbonate 22, anion gap of 13, BUN 1, and creatinine 0.8. Estimated GFR was 97 mL per minute. Her glucose 112 and calcium was 8.9. Total bilirubin, AST, ALT, and alkaline phosphatase were normal. Total protein 6.9, albumin was 2.8. Her serum lipase was 225. Her D-dimer was high at 11.94. Urinalysis was negative. Her CT angio of the chest showed no evidence of pulmonary emboli; however, she has patchy consolidative changes at the lung bases bilaterally, favored to be infectious, inflammatory in etiology. She has small bilateral pleural effusion. DISCHARGE MEDICATIONS: The patient was discharged home to continue on following medications: Augmentin 875 mg/125 tablet 1 tablet twice a day for 7 days with food, oxycodone 5 mg every 6 hours as needed, Protonix 40 mg once a day, alprazolam 0.5 mg every 6 hours as needed, ferrous sulfate 325 mg once a day, and ketorolac tromethamine 10 mg 3 times a day, although I recommended that the patient should not take this as it is causing irritation of her stomach. FINAL DISCHARGE DIAGNOSES: 1. Acute alcohol-induced necrotizing pancreatitis. 2. Systemic inflammatory response syndrome. The patient has tachycardia and fever, although blood cultures are so far negative. 3. Normochromic normocytic anemia. 4. She has chronic alcoholism, previous episodes of alcohol-induced pancreatitis. 5. Nicotine addiction. 6. Marijuana abuse. 7. Acute hypoxic respiratory failure, likely drug-induced. PATRIA YANCEY MD DR: SERA/rita JOB#: [id number] / [id number]
--- NOTE | 2020-08-26 09:57 | PDOC ---
Infectious Disease Note Subjective: Subjective Patient feels better No abdominal pain Tolerated p.o. intake well Eager for discharge home today Vital Signs: Vital Signs Vital Signs Date Time Temp Pulse Resp B/P (MAP) Pulse Ox O2 Delivery O2 Flow Rate FiO2 08/26/20 07:00 99.3 111 16 116/85 (95) 94 Room Air 99.3 08/25/20 09:04 4.0 Physical Exam: PHYSICAL EXAM GENERAL: Alert, oriented female, not in distress. HEENT: Anicteric, no pharyngeal exudate NECK: Supple, no JVP, no lymphadenopathy. LUNGS: Clear. HEART: S1, S2 regular. ABDOMEN: Soft, nontender, no organomegaly. EXTREMITIES: No edema or cyanosis. SKIN: Unremarkable. NEUROLOGIC: The patient is alert, awake though sleepy. No focal neurologic deficit. Medications: Inpatient Meds: Current Medications Medications (Trade) Dose Ordered Sig/Roger Start Time Stop Time Status Last Admin Dose Admin Acetaminophen (Tylenol) 650 mg PRN Q6HRS PRN 08/24/20 22:15 08/24/20 22:55 650 MG Amoxicillin/ Clavulanate Potassium (Augmentin 875/ 125mg) 1 tab BID 08/25/20 21:00 08/26/20 08:31 1 TAB Bisacodyl (Dulcolax Supp) 10 mg PRN DAILY PRN 08/23/20 17:45 08/23/20 17:56 10 MG Enoxaparin Sodium (Lovenox 40mg Syringe) 40 mg Q24H 08/23/20 15:00 08/25/20 15:27 40 MG Haloperidol Lactate (Haldol Inj) 5 mg Q4HRS PRN 08/22/20 18:30 Hydromorphone HCl (Dilaudid) 2 mg PRN Q3HRS PRN 08/22/20 18:30 08/25/20 09:27 DC 08/25/20 09:04 2 MG Info (CONTRAST GIVEN -- Rx MONITORING) 1 each PRN DAILY PRN 08/24/20 21:15 08/26/20 21:14 Iohexol (Omnipaque 350 Mg/ml) 90 ml 1X ONCE 08/24/20 21:30 08/24/20 21:31 DC 08/24/20 22:29 90 ML Labetalol HCl (Normodyne Iv Push) 10 mg PRN Q4HRS PRN 08/22/20 18:30 08/25/20 20:51 10 MG Lactobacillus Rhamnosus (Culturelle) 1 cap BID 08/26/20 21:00 Lorazepam (Ativan Inj) 2 mg PRN Q4HRS PRN 08/22/20 19:15 08/26/20 08:32 2 MG Lorazepam (Ativan) 2 mg Q6H 08/22/20 19:00 08/24/20 01:01 Cancel Multivitamins 10 ml/Thiamine HCl 100 mg/Folic Acid 1 mg/Sodium Chloride 1,011.2 ml @ 100 mls/ hr DAILY 08/22/20 19:00 08/25/20 09:30 DC 08/24/20 09:12 100 MLS/HR Nicotine (Nicoderm Cq 14mg) 1 patch PRN DAILY PRN 08/23/20 13:30 08/25/20 09:03 1 PATCH Ondansetron HCl (Zofran) 4 mg PRN Q6HRS PRN 08/22/20 18:30 Oxycodone HCl (Roxicodone) 5 mg PRN Q4HRS PRN 08/25/20 13:30 08/25/20 22:55 5 MG Pantoprazole Sodium (PROTONIX VIAL for IV PUSH) 40 mg DAILYAC 08/23/20 07:30 08/26/20 08:31 40 MG Piperacillin Sod/ Tazobactam Sod 3.375 gm/Sodium Chloride 50 ml @ 100 mls/hr Q6HRS 08/22/20 19:00 08/25/20 09:27 DC 08/25/20 05:33 100 MLS/HR Potassium Chloride/Sodium Chloride 1,000 ml @ 100 mls/hr Q10H 08/23/20 07:00 08/25/20 09:27 DC 08/24/20 23:50 100 MLS/HR Potassium Chloride (Klor-Con) 40 meq 1X ONCE 08/26/20 09:15 08/26/20 09:16 DC 08/26/20 09:24 40 MEQ Sodium Chloride 1,000 ml @ 999 mls/hr 1X ONCE 08/22/20 18:30 08/22/20 19:30 DC 08/22/20 19:10 999 MLS/HR Labs: Lab Laboratory Tests Test 08/26/20 03:55 White Blood Count 5.2 x10^3/uL (4.0-11.0) Red Blood Count 3.31 x10^6/uL (3.50-5.40) Hemoglobin 9.1 g/dL (12.0-15.5) Hematocrit 28.4 % (36.0-47.0) Mean Corpuscular Volume 86 fL (79-100) Mean Corpuscular Hemoglobin 27 pg (25-35) Mean Corpuscular Hemoglobin Concent 32 g/dL (31-37) Red Cell Distribution Width 22.3 % (11.5-14.5) Platelet Count 538 x10^3/uL (140-400) Neutrophils (%) (Auto) 59 % (31-73) Lymphocytes (%) (Auto) 25 % (24-48) Monocytes (%) (Auto) 13 % (0-9) Eosinophils (%) (Auto) 1 % (0-3) Basophils (%) (Auto) 2 % (0-3) Neutrophils # (Auto) 3.1 x10^3/uL (1.8-7.7) Lymphocytes # (Auto) 1.3 x10^3/uL (1.0-4.8) Monocytes # (Auto) 0.7 x10^3/uL (0.0-1.1) Eosinophils # (Auto) 0.1 x10^3/uL (0.0-0.7) Basophils # (Auto) 0.1 x10^3/uL (0.0-0.2) Sodium Level 137 mmol/L (136-145) Potassium Level 3.1 mmol/L (3.5-5.1) Chloride Level 102 mmol/L (98-107) Carbon Dioxide Level 22 mmol/L (21-32) Anion Gap 13 (6-14) Blood Urea Nitrogen 1 mg/dL (7-20) Creatinine 0.8 mg/dL (0.6-1.0) Estimated GFR (Cockcroft-Gault) 97.7 BUN/Creatinine Ratio 1 (6-20) Glucose Level 112 mg/dL (70-99) Calcium Level 8.9 mg/dL (8.5-10.1) Total Bilirubin 0.4 mg/dL (0.2-1.0) Aspartate Amino Transf (AST/SGOT) 39 U/L (15-37) Alanine Aminotransferase (ALT/SGPT) 29 U/L (14-59) Alkaline Phosphatase 76 U/L (46-116) Total Protein 6.9 g/dL (6.4-8.2) Albumin 2.8 g/dL (3.4-5.0) Albumin/Globulin Ratio 0.7 (1.0-1.7) Lipase 225 U/L (73-393) Objective: Assessment: 1. Acute pancreatitis with some necrosis. 2. Fever. Improving 3. Alcoholism. 4. Gastroesophageal reflux disease. Plan: Plan of Care Okay to discharge patient home on Augmentin Discussed with nursing DAVID AMIN MD Aug 26, 2020 09:57
--- NOTE | 2020-08-26 10:45 | NUR ---
SS following up with discharge planning. SS reviewed pt chart and discussed with pt RN. Pt is currently on room air. No PT/OT needs. Discharge order on the chart for home with self care.
--- NOTE | 2020-08-26 10:58 | PDOC ---
Date of Service: DATE: 08/26/20 TIME: 10:55 Subjective: Subjective: Still doesn't feel great but able to eat. Objective: Objective: D/w Dr. Schulz - plans to DC. Vital Signs: Vital Signs Date Time Temp Pulse Resp B/P (MAP) Pulse Ox O2 Delivery O2 Flow Rate FiO2 08/26/20 08:00 Room Air 08/26/20 07:00 99.3 111 16 116/85 (95) 94 99.3 08/25/20 09:04 4.0 Labs: Laboratory Tests Test 08/26/20 03:55 White Blood Count 5.2 x10^3/uL Red Blood Count 3.31 x10^6/uL Hemoglobin 9.1 g/dL Hematocrit 28.4 % Mean Corpuscular Volume 86 fL Mean Corpuscular Hemoglobin 27 pg Mean Corpuscular Hemoglobin Concent 32 g/dL Red Cell Distribution Width 22.3 % Platelet Count 538 x10^3/uL Neutrophils (%) (Auto) 59 % Lymphocytes (%) (Auto) 25 % Monocytes (%) (Auto) 13 % Eosinophils (%) (Auto) 1 % Basophils (%) (Auto) 2 % Neutrophils # (Auto) 3.1 x10^3/uL Lymphocytes # (Auto) 1.3 x10^3/uL Monocytes # (Auto) 0.7 x10^3/uL Eosinophils # (Auto) 0.1 x10^3/uL Basophils # (Auto) 0.1 x10^3/uL Sodium Level 137 mmol/L Potassium Level 3.1 mmol/L Chloride Level 102 mmol/L Carbon Dioxide Level 22 mmol/L Anion Gap 13 Blood Urea Nitrogen 1 mg/dL Creatinine 0.8 mg/dL Estimated GFR (Cockcroft-Gault) 97.7 BUN/Creatinine Ratio 1 Glucose Level 112 mg/dL Calcium Level 8.9 mg/dL Total Bilirubin 0.4 mg/dL Aspartate Amino Transf (AST/SGOT) 39 U/L Alanine Aminotransferase (ALT/SGPT) 29 U/L Alkaline Phosphatase 76 U/L Total Protein 6.9 g/dL Albumin 2.8 g/dL Albumin/Globulin Ratio 0.7 Lipase 225 U/L PE: GEN: NAD LUNGS: CTAB HEART: RRR ABD: NABS, S/ND/NT NEURO/PSYCH: A & O 3 A/P: Recurrent alcoholic pancreatitis -- Dc per primary, avoid alcohol. Justicifation of Admission Dx: Justifications for Admission: Justification of Admission Dx: Yes LUIS SPARROW Aug 26, 2020 10:58
[2020-08-26] MEDS ORDERED: LACTOBACILLUS RHAMNOSUS GG 1 CAPSULE. PO SCH (21:00)
== END 2020-08-26 11:15 | disposition home or self-care (01) | DRG 438 ==
LOC: 1 WEST ICU 18:02 → 2 SOUTH 08-23 22:15
PROVIDERS: ADMIT Internal Medicine; ATTEND Internal Medicine
DX: K85.21 Alcohol induced acute pancreatitis with uninfected necrosis (principal); E43 Unspecified severe protein-calorie malnutrition; J96.01 Acute respiratory failure with hypoxia; R65.10 Systemic inflammatory response syndrome (SIRS) of non-infectious origin without acute organ dysfunction; J98.11 Atelectasis; R18.8 Other ascites; Z20.828 Contact with and (suspected) exposure to other viral communicable diseases; D64.9 Anemia, unspecified; E87.6 Hypokalemia; F10.20 Alcohol dependence, uncomplicated; F12.10 Cannabis abuse, uncomplicated; F17.210 Nicotine dependence, cigarettes, uncomplicated; K21.9 Gastro-esophageal reflux disease without esophagitis; Z82.49 Family history of ischemic heart disease and other diseases of the circulatory system; Y90.9 Presence of alcohol in blood, level not specified; T50.905A Adverse effect of unspecified drugs, medicaments and biological substances, initial encounter; Z68.22 Body mass index [BMI] 22.0-22.9, adult; Z88.5 Allergy status to narcotic agent; Y92.89 Other specified places as the place of occurrence of the external cause
CPT/HCPCS: 36415; 36600; 71045; 71275; 80053; 81025; 82805; 83605; 83690; 85025; 85379; 94618; C9113; J1170; J1650; J2060; J2543; J3411; J3480; J3490; J7030; Q9967; U0003; G0378

== ENCOUNTER 2020-08-28 11:04 | Emergency (ER) | payer OTHER ==
[~2020-08-28] VITALS: Ht 172.7 cm; Wt 60.2 kg
[~2020-08-28 11:04] MED LIST changes: +AMOX1TAB61 PO; +OXYC5CAP PO; +PANT40TA77 PO
[2020-08-28 11:22] LABS: BILIRUBIN,URINE NEGATIVE (NEG); CLARITY,URINE CLEAR; COLOR,URINE YELLOW; NITRITE,URINE NEGATIVE (NEG); PROTEIN,URINE NEGATIVE (NEG-TRACE); UROBILINOGEN,URINE 0.2 mg/dL (0.2 mg/dL)
[2020-08-28] MEDS ORDERED: ONDANSETRON PF 4 MG/2 ML VIAL. IV ONE (11:30)
[2020-08-28] MEDS ORDERED: fentaNYL PF VIAL 100 MCG/2 ML VIAL IV ONE (11:30)
[2020-08-28] MEDS ORDERED: IV NORMAL SALINE 1000ML BAG 1,000 ML IV ONE (11:30)
[2020-08-28 11:40] LABS: BACTERIA,URINE 0 /HPF (0-FEW); RBC,URINE 0 /HPF (0-2); WBC,URINE 0 /HPF (0-4)
--- NOTE | 2020-08-28 11:52 | ED.ADGEN ---
Past Medical History Past Medical History: Other Additional Past Medical Histor: NECROTIZING PANCREATITIS Past Surgical History: Appendectomy Smoking Status: Former Smoker Additional Information: PT SAYS SHE QUIT SMOKING 08/26/20 Alcohol Use: Heavy Additional Information: LAST DRINK 08/16/20 Social History Narrative: DAILY MARIJUANA USE General Adult EDM: Chief Complaint: ABDOMINAL PAIN HPI: HPI: Patient is a 39 year old AA female who presents emergency department with complaints of right upper quadrant abdominal pain and vomiting for the last 3 days. Patient states she was just discharged from this facility on August 26 after being admitted for possible necrotizing pancreatitis. The patient denies any blood in her vomit. She denies any diarrhea. Patient reports that her abdominal pain increases with inspiration but denies any wheezing or shortness of breath. She denies any cough, body aches, fever, dysuria, hematuria, headache, or dizziness. Patient states that she has not been able to eat today because her pain has been so severe. Patient reports that she has not had an alcoholic beverage since the Monday before she was admitted to [facility]. Patient states she was sent home with a prescription for oxycodone but it is not helping with her pain. She currently rates her pain 10 out of 10 on the pain scale, she denies any alleviating factors, worse with deep breath. Review of Systems: Review of Systems: Complete ROS is negative unless otherwise noted in HPI. Current Medications: Current Medications Medications (Trade) Dose Ordered Sig/[facility] Start Time Stop Time Status Last Admin Dose Admin Fentanyl Citrate (Fentanyl 2ml Vial) 50 mcg 1X ONCE 08/28/20 11:30 08/28/20 11:42 DC 08/28/20 11:52 50 MCG Info (CONTRAST GIVEN -- Rx MONITORING) 1 each PRN DAILY PRN 08/28/20 14:15 08/28/20 16:04 DC Iohexol (Omnipaque 240 Mg/ml) 30 ml 1X ONCE 08/28/20 14:00 08/28/20 14:03 DC 08/28/20 14:06 30 ML Iohexol (Omnipaque 300 Mg/ml) 75 ml 1X ONCE 08/28/20 14:00 08/28/20 14:03 DC 08/28/20 14:06 75 ML Lorazepam (Ativan Inj) 1 mg 1X ONCE 08/28/20 13:00 08/28/20 13:01 DC 08/28/20 13:08 1 MG Ondansetron HCl (Zofran) 4 mg 1X ONCE 08/28/20 11:30 08/28/20 11:42 DC 08/28/20 11:51 4 MG Sodium Chloride 1,000 ml @ 1,000 mls/hr 1X ONCE 08/28/20 11:30 08/28/20 12:29 DC 08/28/20 11:52 1,000 MLS/HR Allergies: Allergies: Allergies Coded Allergies Type Severity Reaction Last Updated Verified morphine Allergy Severe Anaphylaxis 08/23/20 Yes Physical Exam: PE: See Above Constitutional: Well developed, well nourished, moderate distress, appears uncomfortable HENT: Normocephalic, atraumatic, bilateral external ears normal, oropharynx moist, nose normal. [] Eyes: PERRLA, EOMI, conjunctiva normal, no discharge. [] Neck: Normal range of motion, no stridor. [] Cardiovascular:Heart rate regular rhythm, no murmur [] Lungs & Thorax: Bilateral breath sounds clear to auscultation, lungs [] Abdomen: Bowel sounds normal, soft, right upper quadrant tenderness to palpation, no rebound tenderness, no guarding, no masses, no pulsatile masses. [] Skin: Warm, dry, no erythema, no rash. [] Extremities: No cyanosis, ROM intact, no edema. [] Neurologic: Alert and oriented X 3, no focal deficits noted. [] Psychologic: Affect normal, judgement normal, mood normal. [] Current Patient Data: Labs: Laboratory Tests Test 08/28/20 11:10 08/28/20 11:19 08/28/20 13:20 Urine Collection Type Unknown Urine Color Yellow Urine Clarity Clear Urine pH 8.0 (<5.0-8.0) Urine Specific Iva <=1.005 (1.000-1.030) Urine Protein Negative mg/dL (NEG-TRACE) Urine Glucose (UA) Negative mg/dL (NEG) Urine Ketones (Stick) Negative mg/dL (NEG) Urine Blood Negative (NEG) Urine Nitrite Negative (NEG) Urine Bilirubin Negative (NEG) Urine Urobilinogen Dipstick 0.2 mg/dL (0.2 mg/dL) Urine Leukocyte Esterase Negative (NEG) Urine RBC 0 /HPF (0-2) Urine WBC 0 /HPF (0-4) Urine Squamous Epithelial Cells Few /LPF Urine Bacteria 0 /HPF (0-FEW) POC Urine HCG, Qualitative Hcg negative (Negative) White Blood Count 6.0 x10^3/uL (4.0-11.0) Red Blood Count 3.84 x10^6/uL (3.50-5.40) Hemoglobin 10.5 g/dL (12.0-15.5) L Hematocrit 33.5 % (36.0-47.0) L Mean Corpuscular Volume 87 fL (79-100) Mean Corpuscular Hemoglobin 27 pg (25-35) Mean Corpuscular Hemoglobin Concent 31 g/dL (31-37) Red Cell Distribution Width 22.7 % (11.5-14.5) H Platelet Count 755 x10^3/uL (140-400) H Neutrophils (%) (Auto) 61 % (31-73) Lymphocytes (%) (Auto) 26 % (24-48) Monocytes (%) (Auto) 10 % (0-9) H Eosinophils (%) (Auto) 2 % (0-3) Basophils (%) (Auto) 1 % (0-3) Neutrophils # (Auto) 3.7 x10^3/uL (1.8-7.7) Lymphocytes # (Auto) 1.5 x10^3/uL (1.0-4.8) Monocytes # (Auto) 0.6 x10^3/uL (0.0-1.1) Eosinophils # (Auto) 0.1 x10^3/uL (0.0-0.7) Basophils # (Auto) 0.1 x10^3/uL (0.0-0.2) Segmented Neutrophils % 64 % (35-66) Lymphocytes % 25 % (24-48) Monocytes % 9 % (0-10) Eosinophils % 2 % (0-5) Platelet Estimate Increased (ADEQUATE) Polychromasia Slight Anisocytosis Mod Sodium Level 139 mmol/L (136-145) Potassium Level 3.5 mmol/L (3.5-5.1) Chloride Level 102 mmol/L (98-107) Carbon Dioxide Level 21 mmol/L (21-32) Anion Gap 16 (6-14) H Blood Urea Nitrogen 1 mg/dL (7-20) L Creatinine 0.7 mg/dL (0.6-1.0) Estimated GFR (Cockcroft-Gault) 113.9 BUN/Creatinine Ratio 1 (6-20) L Glucose Level 90 mg/dL (70-99) Calcium Level 9.3 mg/dL (8.5-10.1) Magnesium Level 2.0 mg/dL (1.8-2.4) Total Bilirubin 0.4 mg/dL (0.2-1.0) Direct Bilirubin 0.1 mg/dL (0.0-0.2) Aspartate Amino Transferase (AST) 21 U/L (15-37) Alanine Aminotransferase (ALT) 19 U/L (14-59) Alkaline Phosphatase 76 U/L (46-116) Total Protein 7.8 g/dL (6.4-8.2) Albumin 3.3 g/dL (3.4-5.0) L Albumin/Globulin Ratio 0.7 (1.0-1.7) L Lipase 172 U/L (73-393) Ethyl Alcohol Level < 10 mg/dL (0-10) Laboratory Tests 08/28/20 13:20 Laboratory Tests 08/28/20 13:20 Vital Signs: Vital Signs Date Time Temp Pulse Resp B/P (MAP) Pulse Ox O2 Delivery O2 Flow Rate FiO2 08/28/20 14:30 104 144/96 (112) Room Air 08/28/20 13:00 100 08/28/20 11:10 97.8 24 97.8 EKG: EKG: [] Heart Score: Risk Factors: Risk Factors: DM, Current or recent (<one month) smoker, HTN, HLP, family history of CAD, obesity. Risk Scores: Score 0 - 3: 2.5% MACE over next 6 weeks - Discharge Home Score 4 - 6: 20.3% MACE over next 6 weeks - Admit for Clinical Observation Score 7 - 10: 72.7% MACE over next 6 weeks - Early Invasive Strategies Radiology/Procedures: Radiology/Procedures: PROCEDURE: CT ABD PELV W/ORAL&IV CONTRAST CT SCAN OF THE ABDOMEN AND PELVIS WITH IV CONTRAST. History: Reason: RUQ abd pain, hx of pancreatitis / Spl. Instructions: OMNI 300 INJ 75, PO OMNI 240 30 MLS / History: Comparison:None. Procedure: Contiguous axial images of the abdomen and pelvis were performed after the administration of 75 cc of Omni 300 IV contrast. Oral contrast: Yes. Findings: There is mild pleural effusions in the lung bases. There is linear opacities in the lung bases. Liver: Hallie attenuating along the fissure anteriorly is likely focal fatty infiltration. Surgical clips in the right hemipelvis may have been from prior appendectomy. Spleen: Unremarkable The gallbladder appears normal. The colon is partially collapsed limiting its evaluation. Pancreas: Top normal limits in size but homogeneous. Adrenal Glands: Unremarkable Kidneys: Unremarkable There is no mass or lymphadenopathy. There is no free air. There is mild free fluid. The urinary bladder appears normal. Impression: 1. Mild free fluid could be ascites. This assumes the patient is not . 2. Mild pleural effusions in the lung bases. 3. Mild basilar pulmonary infiltrates likely discoid atelectasis. End impression [] Course & Med Decision Making: Course & Med Decision Making Pertinent Labs and Imaging studies reviewed. (See chart for details) 39-year-old female presents emergency room with complaints of right upper quadrant pain. [id number]- spoke with Dr. Schulz and discussed pt's labs and CT report from today. I advised him that COVID19 swab from 08/25/20 is negative. I will encourage the patient to continue taking the medication that was previously prescribed and provide her with gastroenterology number for further follow-up. Labs were unremarkable, CT abdomen pelvis did not feel any acute findings. I discussed these results with the patient and advised her that I had spoke with Dr. Schulz who recommended that the patient continues to take the medications that were previously prescribed and follow up with gastroenterology for further walters of chronic abdominal pain. I also encouraged the patient to stop smoking marijuana in addition to using alcohol use as these substances can trigger abdominal pain and pancreatitis. Patient verbalized an understanding of home care, medications, follow-up, and return to ED instructions and was in agreement with the plan of care. [] Dragon Disclaimer: Dragon Disclaimer: This electronic medical record was generated, in whole or in part, using a voice recognition dictation system. Departure Departure Impression: Primary Impression: Abdominal pain, chronic, right upper quadrant Disposition: 01 DC HOME SELF CARE/HOMELESS Condition: STABLE Referrals: MYESHA CEJA MD Patient Instructions: Abdominal Pain (Nonspecific) Additional Instructions: Continue taking your medications as previously prescribed. Recommend that you stop smoking marijuana as it may be related to your abdominal pain. Follow-up with agricultural research technician, Dr. Ceja for further evaluation and treatment, return to the ER if your symptoms worsen or you develop a fever. AL LUTZ APRN Aug 28, 2020 11:52
[2020-08-28 13:42] LABS: BASO # 0.1 x10^3/uL (0.0-0.2); BASO % 1 % (0-3); EOS # 0.1 x10^3/uL (0.0-0.7); EOS % 2 % (0-3); HEMATOCRIT 33.5 % (36.0-47.0); HEMOGLOBIN 10.5 g/dL (12.0-15.5); LYMPH # 1.5 x10^3/uL (1.0-4.8); LYMPH % 26 % (24-48); MEAN CORPUSCULAR HEMOGLOBIN 27 pg (25-35); MEAN CORPUSCULAR HGB CONC 31 g/dL (31-37); MEAN CORPUSCULAR VOLUME 87 fL (79-100); MONO # 0.6 x10^3/uL (0.0-1.1); MONO % 10 % (0-9); NEUT # 3.7 x10^3/uL (1.8-7.7); NEUT % 61 % (31-73); PLATELET COUNT 755 x10^3/uL (140-400); RED BLOOD COUNT 3.84 x10^6/uL (3.50-5.40); RED CELL DISTRIBUTION WIDTH 22.7 % (11.5-14.5)
[2020-08-28 13:50] LABS: CALCIUM 9.3 mg/dL (8.5-10.1); CREATININE 0.7 mg/dL (0.6-1.0); GFR 113.9; POTASSIUM 3.5 mmol/L (3.5-5.1)
[2020-08-28 13:56] LABS: ALBUMIN 3.3 g/dL (3.4-5.0); ALBUMIN/GLOBULIN RATIO 0.7 (1.0-1.7); TOTAL BILIRUBIN 0.4 mg/dL (0.2-1.0); TOTAL PROTEIN 7.8 g/dL (6.4-8.2)
[2020-08-28] MEDS ORDERED: IOHEXOL 240 MG/ML 50ML VIAL. PO ONE (14:00)
[2020-08-28] MEDS ORDERED: IOHEXOL 300 MG/ML 100ML VIAL. IV ONE (14:00)
[2020-08-28 14:08] LABS: % EOS 2 % (0-5); % LYMPHS 25 % (24-48); % MONOS 9 % (0-10); % SEGS 64 % (35-66); PLT ESTIMATE INCREASED (ADEQUATE)
[2020-08-28 14:09] LABS: ANISOCYTOSIS MOD; POLYCHROMASIA SLIGHT
[2020-08-28] MEDS ORDERED: CONTRAST GIVEN. MC PRN (14:15)
[2020-08-28 14:30] VITALS: BP 144/96
--- NOTE | 2020-08-28 14:39 | RAD ---
CT SCAN OF THE ABDOMEN AND PELVIS WITH IV CONTRAST. History: Reason: RUQ abd pain, hx of pancreatitis / Spl. Instructions: OMNI 300 INJ 75, PO OMNI 240 30 MLS / History: Comparison:None. Procedure: Contiguous axial images of the abdomen and pelvis were performed after the administration of 75 cc of Omni 300 IV contrast. Oral contrast: Yes. Findings: There is mild pleural effusions in the lung bases. There is linear opacities in the lung bases. Liver: Hallie attenuating along the fissure anteriorly is likely focal fatty infiltration. Surgical clips in the right hemipelvis may have been from prior appendectomy. Spleen: Unremarkable The gallbladder appears normal. The colon is partially collapsed limiting its evaluation. Pancreas: Top normal limits in size but homogeneous. Adrenal Glands: Unremarkable Kidneys: Unremarkable There is no mass or lymphadenopathy. There is no free air. There is mild free fluid. The urinary bladder appears normal. Impression: 1. Mild free fluid could be ascites. This assumes the patient is not . 2. Mild pleural effusions in the lung bases. 3. Mild basilar pulmonary infiltrates likely discoid atelectasis. End impression PQRS Compliance Statement: One or more of the following individualized dose reduction techniques were utilized for this examination: 1. Automated exposure control 2. Adjustment of the mA and/or kV according to patient size 3. Use of iterative reconstruction technique Electronically signed by: Arjun Howell III, MD (08/28/2020 2:37 PM) [facility]
== END 2020-08-28 15:55 | disposition home or self-care (01) ==
LOC: ER 11:04
DX: G89.29 Other chronic pain (principal); R10.11 Right upper quadrant pain; R11.2 Nausea with vomiting, unspecified; F10.10 Alcohol abuse, uncomplicated; F12.90 Cannabis use, unspecified, uncomplicated; Z90.89 Acquired absence of other organs; Z87.891 Personal history of nicotine dependence; Z88.6 Allergy status to analgesic agent
CPT/HCPCS: 36415; 74177; 80053; 81001; 81025; 82248; 83690; 83735; 85007; 85025; 96361; 96374; 96375; 99285; G0480; J2060; J2405; J3010; J7030; Q9966; Q9967

== ENCOUNTER → 2020-09-29 | Outpatient (CLI) | payer OTHER ==
[~2020-09-29] MED LIST changes: +GADOTERATE 7.5 MMOL/15ML VIAL. IVP ONE
--- NOTE | 2020-09-29 16:41 | KCIC ---
EXAM: MRI ABDOMEN WITH AND WITHOUT CONTRAST. HISTORY: Pancreatitis. TECHNIQUE: MRI of the abdomen was performed before and after the intravenous administration of 10 mL Clariscan. COMPARISON: 08/28/2020. FINDINGS: Liver: There is no significant steatosis. There are no suspicious hepatic lesions. Biliary tree: The gallbladder is decompressed but otherwise unremarkable. The common duct is not dilated. Decreased precontrast T1 signal within the pancreatic head and body are consistent with chronic pancreatitis. No suspicious pancreatic parenchymal mass is identified. The pancreatic duct is not dilated. Other findings: The kidneys, adrenal glands and spleen are unremarkable. IMPRESSION: 1. Decreased pancreatic parenchymal T1 signal is consistent with chronic pancreatitis. No underlying parenchymal lesion is identified. No ductal dilatation. Electronically signed by: Nixon Jarvis MD (09/29/2020 4:38 PM) [facility]
== END ==
LOC: KCIC MRI 13:43
PROVIDERS: ATTEND Internal Medicine Gastroenterology
DX: K86.1 Other chronic pancreatitis (principal)
CPT/HCPCS: 74183; A9575

== ENCOUNTER 2021-03-15 10:00 | Outpatient (CLI) | payer OTHER ==
[2021-03-15] VITALS (11 sets, daily range): BP systolic 99–136; BP diastolic 73–90
[~2021-03-15 10:00] MED LIST changes: -GADOTERATE 7.5 MMOL/15ML VIAL. IVP ONE; +LISI10TA16 PO; +METO-239 PO; +OXYC1TAB15 PO
[2021-03-15 10:47] LABS: HEMATOCRIT 33.1 % (36.0-47.0); HEMOGLOBIN 10.9 g/dL (12.0-15.5); RED BLOOD COUNT 3.58 x10^6/uL (3.50-5.40); RED CELL DISTRIBUTION WIDTH 20.4 % (11.5-14.5); WHITE BLOOD COUNT 3.2 x10^3/uL (4.0-11.0)
[2021-03-15 10:55] LABS: CALCIUM 8.6 mg/dL (8.5-10.1); CREATININE 0.7 mg/dL (0.6-1.0); GFR 113.3; POTASSIUM 4.2 mmol/L (3.5-5.1)
[2021-03-15] MEDS ORDERED: ALPR0.5T6 PO (10:58)
[2021-03-15 11:03] LABS: PROTHROMBIN TIME PATIENT 12.4 SEC (11.7-14.0)
[2021-03-15] MEDS ORDERED: IODIXANOL 320 MG/ML 100 ML VIAL. ONE (11:27)
[2021-03-15] MEDS ORDERED: LIDOCAINE 1% PF 2 ML VIAL. ONE (11:27)
[2021-03-15] MEDS ORDERED: fentaNYL PF VIAL 100 MCG/2 ML VIAL ONE (11:52)
[2021-03-15] MEDS ORDERED: VERAPAMIL 5 MG/2 ML VIAL. ONE (11:52)
[2021-03-15] MEDS ORDERED: MIDAZOLAM HCL/PF 2 MG/2 ML VIAL. ONE (11:52)
[2021-03-15] MEDS ORDERED: HEPARIN for IV BOLUS 10,000 UNIT/10 ML VIAL. ONE (11:52)
[2021-03-15] MEDS ORDERED: NITROGLYCERIN 200 MCG/2 ML SYRINGE FOR CATH/VASC LAB. ONE (11:53)
[2021-03-15] MEDS ORDERED: MIDAZOLAM HCL/PF 2 MG/2 ML VIAL. IV ONE (12:15)
[2021-03-15] MEDS ORDERED: HEPARIN for IV BOLUS 10,000 UNIT/10 ML VIAL. IART ONE (12:15)
[2021-03-15] MEDS ORDERED: NITROGLYCERIN 200 MCG/2 ML SYRINGE FOR CATH/VASC LAB. IART ONE (12:15)
[2021-03-15] MEDS ORDERED: IODIXANOL 320 MG/ML 100 ML VIAL. IART ONE (12:15)
[2021-03-15] MEDS ORDERED: VERAPAMIL 5 MG/2 ML VIAL. IART ONE (12:15)
[2021-03-15] MEDS ORDERED: fentaNYL PF VIAL 100 MCG/2 ML VIAL IV ONE (12:15)
[2021-03-15] MEDS ORDERED: LIDOCAINE 1% PF 2 ML VIAL. INJ ONE (12:15)
--- NOTE | 2021-03-15 14:54 | NUR ---
PIV removed. No bleeding at access site/R radial. TR band removed, dressing applied. Pt's arm-board re-applied. Advised to ice area for pain if needed. Patient states she cannot take Tylenol due to liver issues in past, but is willing to try ibuprofen if needed-- kidney function WNL. Told to call PCP with any questions regarding medications taken/advised not to take in past. Patient given instructions on site care, smoking cessation, sedation. RN discussed site care at length and need to protect wrist to prevent bleeding. Patient's mother at bedside. Both verbalized understanding. Note provided for 1 week off work. 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 Advised to not lift, submerge under water until healed. Patient taken to car via wheelchair. Her mother is driving home.
--- NOTE | 2021-03-15 18:38 | CARD ---
MR#: [id number] Date of Study: 03/15/2021 Ordering Physician: PALLAVI HAMILTON, Referring Physician: PALLAVI HAMILTON, Tech: RT Ambrosio(R) APPROVED REPORT Technologist: RT Ambrosio(R) Nurse: Karen Soto RN Procedure(s) performed: FL TIME: 2.5 MINS DOSE: 17 GYCM2 CONTRAST: 64 ML MODERATE SEDATION: 21 MINUTES LHC, Left ventriculogram, Coronary angiography [facility] Clinical Frailty Scale [facility] Clinical Frailty Scale: Mildly Frail Heart Failure Heart Failure: Yes If Yes, Newly Diagnosed: Yes If Yes, HF Type: Diastolic Systolic If Yes, NYHA Class: Class II CASE TECHNIQUE IV conscious sedation was used throughout procedure with appropriate monitoring and was performed in the presence of a registered nurse who was an independent trained observer other than the physician p erforming the procedure. During this case, Fluoroscopy and low osmolar contrast were used for imaging . Specimen(s) Removed: N/A Estimated Blood loss: 15 cc's. PROCEDURE NARRATIVE Clinical information: 40 y.o woman presents with NSVT during stress testing. Informed consent: Written informed consent was obtained from the patient after adequate discussion of the risks and bryanna efits of the procedure. Procedure details: ACCESS: The right wrist was prepped and draped in usual sterile fashion. Under 1% lidocaine local anesthesia a 6 Malagasy Terumo sheath was placed in the right radial artery via the Seldinger technique. DIAGNOSTIC ANGIOGRAPHY: Right and left coronary arteries were engaged with a 6 Malagasy TIG catheter. Diagnostic angiography i n multiple views were obtained. Next, a 6 Malagasy pigtail catheter was placed in the left ventricle a nd a LVEDP was measured. A pullback was performed after left ventriculography. All catheters were e xchanged over J-tip guidewire. FINDINGS: ======= Aorta: 110/80 LVEDP: 15 mmHg Left ventriculogram: Ejection fraction 55% Normal wall motion without any evidence of aortic or mitral insufficiency. Coronary angiography: LM: Large caliber vessel with normal angiographic appearance LAD: Large caliber vessel with normal angiographic appearance. LCX: Moderate caliber non-dominant vessel with normal angiographic appearance. RCA: Large caliber dominant vessel with normal angiographic appearance. CLOSURE: At case completion the right radial sheath was removed and a Terumo radial band was applied with 11 m L of air. Hemostasis was achieved. COMPLICATIONS: No acute complications noted Conclusion 1. Normal left sided filling pressures. 2. Normal LV systolic function. EF 55% 3. Normal angiographic appearance of the coronary arteries. Recommendations Evaluation for non-cardiac causes of chest pain. Smoking and alcohol cessation. Signed by : Pallavi Hamilton, Electronically Approved : 03/15/2021 18:37:56
== END 2021-03-15 14:50 | disposition home or self-care (01) ==
LOC: CCL 10:00
PROVIDERS: ATTEND Internal Medicine Cardiovascular Disease
DX: R94.39 Abnormal result of other cardiovascular function study (principal); R07.9 Chest pain, unspecified; I25.10 Atherosclerotic heart disease of native coronary artery without angina pectoris; I10 Essential (primary) hypertension; F41.9 Anxiety disorder, unspecified; F17.210 Nicotine dependence, cigarettes, uncomplicated; Z79.899 Other long term (current) drug therapy; Z98.890 Other specified postprocedural states; Z88.6 Allergy status to analgesic agent; Z72.89 Other problems related to lifestyle
CPT/HCPCS: 36415; 80048; 85027; 85610; 93458; 99152; C1769; C1894; J1644; J2250; J3010; J3490; Q9967

== ENCOUNTER → 2021-03-22 | Day surgery (SDC) | payer OTHER ==
[~2021-03-22] VITALS: Ht 172.7 cm; Wt 59.8 kg
[~2021-03-22] MED LIST changes: +ALPR0.5T6 PO; +HYDROmorphone 2 MG/ML VIAL IVP PRN; +IV RINGERS,LACTATED 1000ML 1,000 ML IV SCH; +LIDOCAINE 2% PF 5 ML VIAL. ONE; +MORPHINE SULFATE 2 MG/ML VIAL. IVP PRN; +PANT20TA2 PO; +POTA20PA30 PO; +PROCHLORPERAZINE 10 MG/2 ML VIAL. IVP PRN; +PROPOFOL 10 MG/ML (20ML) VIAL. IV ONE; +SUCR1ORA5 PO; +fentaNYL PF VIAL 100 MCG/2 ML VIAL IVP PRN
[2021-03-22 12:26] VITALS: BP 98/65
--- NOTE | 2021-03-22 12:57 | PDOC1 ---
History and Physical Date of Admission Date of Admission DATE: 03/22/21 TIME: 12:49 Identification/Chief Complaint Chief Complaint TREVA Source Source: Chart review, Patient History of Present Illness History of Present Illness 40 y/o female with TREVA. No prior endoscopy. Has GERD, occasional dysphagia. On PPI. No PUD. GB with sludge when in for pancreatitis but no definite stones. No liver disease. Chronic alcoholic pancreatitis. No real constipation or diarrhea. No overt bleeding. Past Medical History Cardiovascular: No pertinent hx Pulmonary: No pertinent hx GI: Other Heme/Onc: No pertinent hx Hepatobiliary: No pertinent hx Psych: Anxiety, Addictions Rheumatologic: No pertinent hx Infectious disease: No pertinent hx Renal/: No pertinent hx Endocrine: No pertinent hx Past Surgical History Past Surgical History: Appendectomy, , Tonsillectomy Family History Family History: Cancer (breast), Coronary Artery Disease, Diabetes, Hyperte nsion, Stroke Social History Smoke: 1 pack per day ALCOHOL: other (quit) Drugs: None Current Medications Current Medications Current Medications Fentanyl Citrate (Fentanyl 2ml Vial) 25 mcg PRN Q5MIN PRN IVP MILD PAIN 1-3; Start 03/22/21 at 06:00; Stop 03/22/21 at 20:00 Fentanyl Citrate (Fentanyl 2ml Vial) 50 mcg PRN Q5MIN PRN IVP MODERATE PAIN 4- 6; Start 03/22/21 at 06:00; Stop 03/22/21 at 20:00 Morphine Sulfate (Morphine Sulfate) 1 mg PRN Q10MIN PRN IVP SEVERE PAIN 7-10; Start 03/22/21 at 06:00; Stop 03/23/21 at 05:59; Status UNV Ringer's Solution 1,000 ml @ 30 mls/hr Q24H IV Last administered on 03/22/21at 12:46; Start 03/22/21 at 06:00; Stop 03/22/21 at 17:59 Hydromorphone HCl (Dilaudid) 0.5 mg PRN Q10MIN PRN IVP SEVERE PAIN 7-10, 2nd CHOICE; Start 03/22/21 at 06:00; Stop 03/23/21 at 05:59; Status UNV Prochlorperazine Edisylate (Compazine) 5 mg PACU PRN PRN IVP NAUSEA, MRX1; Start 03/22/21 at 06:00; Stop 03/22/21 at 06:01; Status DC Active Scripts Active Reported Carafate (Sucralfate) 1 Gm/10 Ml Oral.susp 1 Gm PO BID Klor-Con (Potassium Chloride) 20 Meq Packet 20 Meq PO BID Percocet 5-325 Mg Tablet (Oxycodone/Acetaminophen) 1 Each Tablet 1 Tab PO PRN BID PRN MDD 2 Tablet(s) 5 Days Protonix (Pantoprazole Sodium) 20 Mg Tablet.dr 40 Mg PO DAILY Alprazolam 0.5 Mg Tablet 1 Tab PO BID Allergies Allergies: Coded Allergies: morphine (Verified Allergy, Severe, Anaphylaxis, 03/22/21) Body and throat swelling ROS Review of System Otherwise negative. Physical Exam General: Alert, Oriented X3, Cooperative, No acute distress Lungs: Clear to auscultation Heart: S1S2, RRR, no gallops, no murmurs Abdomen: Normal bowel sounds, Soft, No tenderness, No hepatosplenomegaly, No masses Rectal Exam: deferred (to procedure) Extremities: No cyanosis, No edema Skin: No significant lesion Neuro: Normal speech, Strength at 5/5 X4 ext, Normal tone, Sensation intact, Cranial nerves 3-12 NL, Reflexes 2+ Psych/Mental Status: Mental status NL, Mood NL Vitals Vitals Vital Signs Date Time Temp Pulse Resp B/P (MAP) Pulse Ox O2 Delivery O2 Flow Rate FiO2 03/22/21 12:26 97.6 74 18 100 97.6 VTE Prophylaxis Ordered VTE Prophylaxis Devices: No VTE Pharmacological Prophylaxi: No Assessment/Plan Assessment/Plan IMP: TREVA GERD/dysphagia Chronic alcoholic pancreatitis. PLAN: Colonoscopy and EGD. MYESHA CEJA MD March 22, 2021 12:57
--- NOTE | 2021-03-22 13:53 | PDOC4 ---
PROCEDURE Procedure Colonoscopy/EGD with biopsies Indication: TREVA, heartburn Meds: per anesthesia Findings OBIE--normal. --'Scope advanced to cecum. Prep adequate. Mucosa normal. No diverticular disease, polyps, etc. Normal retroflex. E--Healed reflux at 40cm. G--Normal. Biopsies of antrum and fundus. D--Normal to third portion. Biopsies second portion. Guillermo. well. IMP: Reflux esophagitis, healed. Otherwise normal endoscopies. REC: continue PPI, other meds and diet. Await path. F/u with me in 2 weeks. MYESHA CEJA MD March 22, 2021 13:53
[2021-03-22 13:55] VITALS: BP 138/79
--- NOTE | 2021-03-24 15:08 | PATHOLOGY ---
[facility] Accession Number: [id number] . 01 Material submitted: . PART A: duodenum - DUODENUM BIOPSY PART B: ANTRUM - ANTRAL BIOPSY PART C: stomach - FUNDUS BIOPSY. Modifiers: fundus . 01 Clinical history: . ABDOMINAL PAIN EGD, COLONOSCOPY . 02 Diagnosis: A. Duodenal biopsy: - No significant pathologic abnormalities. . B. Gastric biopsies, antrum: - Congestion and slight chronic inflammation. . C. Gastric biopsies, gastric fundus: - Congestion, slight chronic inflammation, and focal cystic dilatation of gastric glands. (JPM:aime; 03/24/2021) [facility] [place] 0949 Local . 02 Comment: Sections of the duodenal biopsy, where best oriented, show no sprue-like changes or significant inflammatory changes. . Sections of the gastric antral biopsy reveal segments of gastric antral/body transition mucosa showing congestion and slight chronic inflammation. A properly controlled immunoperoxidase stain for Helicobacter is negative for Helicobacter organisms. . Sections of the gastric fundus biopsy show congestion, slight chronic inflammation, and focal cystic dilatation of gastric glands. A properly controlled immunoperoxidase stain for Helicobacter is negative for Helicobacter organisms. (JPM:aime; 03/24/2021) . . Special stains performed: Immunoperoxidase stain for Helicobacter on B1 and C1 . 02 Electronically signed: . Shaw Art MD, Pathologist NPI- [id number] . 01 Gross description: . A. The specimen is received in formalin, labeled "Sesar Herndon", "duodenum biopsy". Received is a single segment of pale piedra soft tissue measuring 0.3 cm. The specimen is entirely submitted in cassette A1. . B. The specimen is received in formalin, labeled "Sesar Herndon", "antral biopsy". Received are 2 segments of pale piedra soft tissue measuring 0.4 and 0.5 cm. The specimen is entirely submitted in cassette B1. . C. The specimen is received in formalin, labeled "Sesar Herndon", "fundus biopsy". Received are 2 segments of pale piedra soft tissue measuring 0.3 and 0.5 cm. The specimen is entirely submitted in cassette C1.(SNA; 03/23/2021) STEFANI/PEGGY 03/23/2021 0946 Local . 02 Pathologist provided ICD-10: K31.89, K29.50 . 02 CPT . 310346, 315318, 737687, [id number] Specimen Comment: A courtesy copy of this report has been sent to [phone], [phone] Specimen Comment: 2030 Specimen Comment: Report sent to / DR LEONARD Performed at: 01 [facility] [address] [facility] [address], [place] [id number] MD Laron Noel MD Phone: [phone] Performed at: 02 [facility] [address] [place], [place] [id number] MD Shaw Art MD Phone: [phone]
== END | disposition home or self-care (01) ==
LOC: SURG 12:10
PROVIDERS: ATTEND Internal Medicine Gastroenterology
DX: D50.9 Iron deficiency anemia, unspecified (principal); R12 Heartburn; K21.00 Gastro-esophageal reflux disease with esophagitis, without bleeding; K31.89 Other diseases of stomach and duodenum; K63.89 Other specified diseases of intestine; K29.50 Unspecified chronic gastritis without bleeding; K86.0 Alcohol-induced chronic pancreatitis; I25.10 Atherosclerotic heart disease of native coronary artery without angina pectoris; I10 Essential (primary) hypertension; M19.90 Unspecified osteoarthritis, unspecified site; F41.9 Anxiety disorder, unspecified; F17.210 Nicotine dependence, cigarettes, uncomplicated; Z79.899 Other long term (current) drug therapy; Z98.890 Other specified postprocedural states; Z88.6 Allergy status to analgesic agent; Z72.89 Other problems related to lifestyle; Z20.822 Contact with and (suspected) exposure to COVID-19
CPT/HCPCS: 43239; 45378; 81025; 87426; J2704